=== PATIENT | female | born 1945 | race Caucasian/White ===

== ENCOUNTER 2018-02-14 16:45 | Emergency (ER) | END 2018-02-14 18:06 | disposition home or self-care (01) ==

== ENCOUNTER → 2018-04-25 | Outpatient (CLI) | END | disposition home or self-care (01) ==

== ENCOUNTER → 2018-05-22 | Outpatient (CLI) | END | disposition home or self-care (01) ==

== ENCOUNTER → 2018-06-26 | Outpatient (CLI) | END | disposition home or self-care (01) ==

== ENCOUNTER → 2018-11-28 | Outpatient (CLI) | payer OTHER ==
[~2018-11-28] MED LIST: CYCL10TA7 PO; HYDR-4011 PO; MED4DP PO; NAPR-985 PO
--- NOTE | 2018-11-28 17:46 | RADRPT ---
PROCEDURE: XR Pelvis and Hips. CLINICAL INDICATION: Pelvic pain. Bilateral hip pain. TECHNIQUE: Five views. Frontal pelvis. Frontal and lateral right hip. Frontal and lateral left h ip. COMPARISON: No prior studies are available for comparison. FINDINGS: There is no fracture or dislocation. The soft tissues are normal. There are severe degenerative changes of both hips with joint space narrowing, osteophytes, subchondr al cysts, subchondral sclerosis, and severe deformity. Right is slightly worse than left. There are d egenerative changes of the lower lumbar spine. There is no lytic or blastic lesion. There is no radiopaque foreign body. IMPRESSION: 1. Severe degenerative changes of both hips with right slightly worse than left. 2. Degenerative changes of the lower lumbar spine. 3. Otherwise unremarkable x-ray pelvis and bilateral hips. RPTAT: QQ .Mckinley Loving MD, MD Date Time Electronically viewed and signed by .Mckinley Loving MD, on 11/28/2018 17:45 .R/
--- NOTE | 2018-11-28 22:05 | HKNOTE ---
DATE OF SERVICE: HISTORY OF PRESENT ILLNESS: Ms. Pérez returns today for complaint of bilateral hip pain. She h as attempted weight loss. Her blood sugars have been better controlled. She states that the pain is severe. It is interfering with her activities of daily living. There are no alleviating factors. GAIT: Antalgic gait, reciprocal gait pattern. RIGHT HIP EXAMINATION: 90 degrees of hip flexion, 20 degrees of extension, 0 degrees, internal rotat ion, 30 degrees external rotation. Positive Madonna's test. LEFT HIP EXAMINATION: The same. IMAGING: AP pelvis x-rays. X-ray taken today demonstrate a dysplastic hip with degenerative changes bilaterally. There is loss of joint space with peripheral osteophytes. No fractures or dislocation s. 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 PLAN: Her last hemoglobin A1c level was 7.3. She has failed previous nonoperative management. We w ill request authorization for right total hip arthroplasty. Once approval is obtained, she will be s cheduled for right total hip replacement. Dictated By: DEANA VERGARA/THOMAS Conf#: [id number] DID#: [id number]
== END | disposition home or self-care (01) ==
LOC: HKI 15:10
PROVIDERS: ATTEND Orthopaedic Surgery Adult Reconstructive Orthopaedic Surgery
DX: M25.552 Pain in left hip (principal); M25.551 Pain in right hip; M16.0 Bilateral primary osteoarthritis of hip
CPT/HCPCS: 73523; Z7500; G0463

== ENCOUNTER 2019-02-14 05:38 | Inpatient (IN) | payer OTHER ==
[2019-02-14] VITALS (26 sets, daily range): BP systolic 116–170; BP diastolic 51–79; PULSE 52–74; RESP 9–20
[~2019-02-14] VITALS: Ht 152.4 cm; Wt 68.0 kg
[2019-02-14] MEDS ORDERED: TRANEXAMIC ACID 1GM/100ML(PMX) 100 ML PRE-OP X1 IVPB ONE (07:00)
[2019-02-14] MEDS ORDERED: oxyCODONE (CR) 10 MG TAB [oxyCONTIN] PO ONE (07:00)
[2019-02-14] MEDS ORDERED: ACETAMINOPHEN 500 MG TAB PO ONE (07:00)
[2019-02-14] MEDS ORDERED: TRANEXAMIC ACID 1 GM/100 ML (PMX) ONE (07:00)
[2019-02-14] MEDS ORDERED: LANSOPRAZOLE 30 MG CAP PO ONE (07:00)
[2019-02-14] MEDS ORDERED: EPHEDrine 25 MG/5 ML SYG ONE (07:00)
[2019-02-14] MEDS ORDERED: DEXAMETHASONE 4 MG/ML 1 ML INJ IV ONE (07:00)
[2019-02-14] MEDS ORDERED: CEFAZOLIN 1 GM/50 ML (PMX) 50 ML IVPB ONE (07:00)
[2019-02-14] MEDS ORDERED: TRANEXAMIC ACID 1GM/100ML(PMX) 100 ML INTRA-OP X1 IVPB ONE (07:00)
[2019-02-14] MEDS ORDERED: ONDANSETRON 4 MG INJ IV ONE (07:00)
[2019-02-14] MEDS ORDERED: PHENYLephrine (100 MCG/ML) 10ML SYG ONE (07:00)
[2019-02-14] MEDS ORDERED: POLYMYXIN B 500000 UNIT INJ ONE (07:02)
[2019-02-14] MEDS ORDERED: TRANEXAMIC ACID 1GM/100ML(PMX) 100 ML ONE (07:03)
[2019-02-14] MEDS ORDERED: BACITRACIN 50000 UNITS INJ ONE (07:04)
[2019-02-14] MEDS ORDERED: AMLO-147 PO (07:06)
[2019-02-14] MEDS ORDERED: LOSA1TAB28 PO (07:06)
[2019-02-14] MEDS ORDERED: CANA300T PO (07:06)
[2019-02-14] MEDS ORDERED: TRAM50TA PO (07:07)
[2019-02-14] MEDS ORDERED: GLIP5TAB13 PO (07:08)
[2019-02-14] MEDS ORDERED: FENO145T37 PO (07:08)
[2019-02-14] MEDS ORDERED: HYDR-3672 PO (07:08)
[2019-02-14] MEDS ORDERED: METF100010 PO (07:09)
[2019-02-14] MEDS ORDERED: ATOR40TA68 PO (07:09)
--- NOTE | 2019-02-14 07:09 | PREAC ---
Date/Time of Note Date/Time of Note DATE: 02/14/19 TIME: 07:05 Anesthesia Eval and Record Evaluation Time Pre-Procedure Interview DATE: 02/14/19 TIME: 07:05 Age 73 Sex female NPO: 8 hrs Preoperative diagnosis Right Hip OA Planned procedure Right Anterior Hip Replacement Past Medical History Past Medical History: Includes Cardio: HTN, Dyslipidemia Endo: Diabetes Musculoskeletal: Osteoarthritis Surgery & Anesthesia Issues No known issue Meds Anticoagulation: No Beta Mandy within 24 hr: No Reason Beta Mandy not given: Pt. not on B-Mandy Active Scripts Methylprednisolone* (Medrol* DOSE PACK) 4 Mg/Dose-Pack Tab.ds.pk, 4 MG PO . DIRECTED, #1 PACKET Prov:DEBBIE HERNANDEZ PA-C 02/14/18 Naproxen* (Naprosyn*) 500 Mg Tablet, 500 MG PO BID PRN for PAIN AND/OR INFLAMMATION, #30 TAB Prov:DEBBIE HERNANDEZ PA-C 02/14/18 Cyclobenzaprine Hcl* (Cyclobenzaprine Hcl*) 10 Mg Tablet, 10 MG PO TID, #15 TAB Prov:DEBBIE HERNANDEZ PA-C 02/14/18 Hydrocodone/Acetaminophen ([place] 5-325 Tablet) 1 Each Tablet, 1 TAB PO Q6H PRN for PAIN, #7 TAB Prov:DEBBIE HERNANDEZ PA-C 02/14/18 Current Medications Ropivacaine/ Morphine Sulfate/ Clonidine/ Epinephrine/ Ketorolac Tromethamine/ Vancomycin HCl/ Sodium Chloride INTRA-OP INJ ; Start 02/14/19 at 07:30 Cefazolin Sodium 50 ml @ 100 mls/hr PRE-OP ONCE IVPB ; Start 02/14/19 at 07:00; Stop 02/14/19 at 07:29 Tranexamic Acid 100 ml @ 220 mls/hr PRE-OP ONCE IVPB ; Start 02/14/19 at 07:00; Stop 02/14/19 at 07:27 Tranexamic Acid 100 ml @ 200 mls/hr INTRA-OP ONCE IVPB ; Start 02/14/19 at 07: 00; Stop 02/14/19 at 07:29 Meds reviewed: Yes Allergies Coded Allergies: No Known Allergy (Unverified , 02/14/18) Allergies Reviewed: Yes Labs/Studies Labs Reviewed: Reviewed by anesthesiologist test: N/A Studies: ECG (NSR, RBBB), CXR (No active Disease) Pre-procedure Exam Last vitals Vital Signs Date Temp Pulse Resp B/P (MAP) Pulse Ox O2 O2 Flow FiO2 Time Delivery Rate 02/14/19 97.4 74 16 157/70 100 Room Air 06:46 (99) Airway: Adequate mouth opening, Adequate thyromental dist Mallampati: Mallampati II Teeth: Normal Lung: Normal Heart: Normal ASA Physical Status ASA physical status: 3 Emergency: None Planned Anesthetic General/MAC: ETT Neuraxial: Spinal Nerve block: Other (Right Fascia Iliaca) Planned Pain Management Sub-arachniod narcotics, Single shot nerve block, Parenteral pain med Pre-operative Attestations Prior to commencing anesthesia and surgery, the patient was re-evaluated, there was verification of: *The patient's identity *The results of appropriate recent lab work and preoperative vital signs *The above evaluation not changing prior to induction *Anesthetic plan, risk benefits, alternative and complications discussed with patient/family; questions answered; patient/family understands, accepts and wishes to proceed. ALAN WAER MD Feb 14, 2019 07:09
[2019-02-14] MEDS ORDERED: CHOL500051 PO (07:10)
[2019-02-14] MEDS ORDERED: INSU100I33 SC (07:10)
[2019-02-14] MEDS ORDERED: OMEP20CA16 PO (07:10)
--- NOTE | 2019-02-14 07:24 | HPN ---
Date/Time of Note Date/Time of Note DATE: 02/14/19 TIME: 07:24 Interval H&P Admission Note Pt. seen H&P reviewed: No system changes DEANA ROGERS MD Feb 14, 2019 07:24
[2019-02-14] MEDS ORDERED: HIP PAIN COCKTAIL VANCO INJ SCH ×14 (07:30→15:30)
[2019-02-14] MEDS ORDERED: ETOMIDATE 20 MG INJ ONE (07:38)
[2019-02-14] MEDS ORDERED: ROCURONIUM 50 MG INJ ONE (07:38)
[2019-02-14] MEDS ORDERED: CEFAZOLIN 1 GM INJ ONE (07:38)
[2019-02-14] MEDS ORDERED: morphine SULFATE/PF (10 MG/10 ML) INJ ONE (07:39)
[2019-02-14] MEDS ORDERED: MIDAZOLAM 1 MG/ML 2 ML INJ ONE (07:39)
[2019-02-14] MEDS ORDERED: ROPIVACAINE 0.5 % 30 ML VIAL ONE (07:46)
[2019-02-14] MEDS ORDERED: POLYMYXIN B 500000 UNIT INJ IRR ONE (08:27)
[2019-02-14] MEDS ORDERED: ONDANSETRON 4 MG INJ ONE (08:35)
[2019-02-14] MEDS ORDERED: KETOROLAC 30 MG INJ ONE (08:35)
[2019-02-14] MEDS ORDERED: METOCLOPRAMIDE 10 MG INJ ONE (08:35)
[2019-02-14] MEDS ORDERED: DEXAMETHASONE 4 MG/ML 5 ML INJ ONE (08:35)
[2019-02-14] MEDS ORDERED: HETASTARCH 6% NACL 500 ML ONE (08:49)
[2019-02-14] MEDS ORDERED: SUGAMMADEX SODIUM 200 MG/2 ML VIAL IV ONE ×2 (09:38→09:41)
--- NOTE | 2019-02-14 10:00 | PAC ---
Date/Time of Note Date/Time of Note DATE: 02/14/19 TIME: 09:59 Post-Anesthesia Notes Post-Anesthesia Note Last documented vital signs Vital Signs Date Temp Pulse Resp B/P (MAP) Pulse Ox O2 O2 Flow FiO2 Time Delivery Rate 02/14/19 98.2 74 16 157/70 100 Room Air 09:56 (99) Activity: WNL Respiratory function: WNL Cardiovascular function: WNL Mental status: Baseline Pain reasonably controlled: Yes Hydration appropriate: Yes Nausea/Vomiting absent: Yes ALAN WARE MD Feb 14, 2019 10:00
--- NOTE | 2019-02-14 10:04 | SIPON ---
Date/Time of Note Date/Time of Note DATE: 02/14/19 TIME: 10:03 Operative Report Preoperative Diagnosis Right Hip Osteoarthritis Postoperative Diagnosis Same Operation/Procedure Performed Right Total Hip Arthroplasty Surgeon Armen Lewis MD information services assistant Medardo Sesay Anesthesia: spinal Estimated blood loss: other Transfusion Required none Specimen Bone Grafts/Implants none Complications none ARMEN LEWIS MD Feb 14, 2019 10:04
[2019-02-14] MEDS ORDERED: HYDROmorphONE 0.5 MG/0.5 ML SYG IV PRN ×2 (10:30)
[2019-02-14] MEDS ORDERED: oxyCODONE 5 MG TAB PO PRN (10:30)
[2019-02-14] MEDS ORDERED: morphine 2 MG INJ IV PRN ×2 (10:30)
[2019-02-14] MEDS ORDERED: MEPERIDINE 25 MG INJ IV PRN (10:30)
[2019-02-14] MEDS ORDERED: FENTAnyl 50 MCG/ML VIAL IV PRN ×2 (10:30)
[2019-02-14] MEDS ORDERED: OXYCODONE/ACETAMINOPHEN (5/325) TAB PO PRN ×2 (10:30)
[2019-02-14] MEDS ORDERED: HYDROCODONE/APAP (5/325) TAB PO PRN (10:30)
[2019-02-14] MEDS ORDERED: NALOXONE (0.4 MG/ML) INJ IV PRN ×2 (10:30)
[2019-02-14] MEDS ORDERED: HYDROmorphONE 1 MG/5 ML IV SYRINGE IV PRN ×2 (10:30)
[2019-02-14] MEDS ORDERED: ACETAMINOPHEN 500 MG TAB PO PRN (10:30)
[2019-02-14] MEDS ORDERED: DOCUSATE SODIUM 100 MG CAP PO ONE (10:30)
[2019-02-14] MEDS ORDERED: METOCLOPRAMIDE 10 MG INJ IV PRN ×2 (10:30→22:00)
[2019-02-14] MEDS ORDERED: ONDANSETRON 4 MG INJ IV PRN ×3 (10:30→22:30)
[2019-02-14] MEDS ORDERED: NACL 0.9% 3 ML SYG IV SCH (10:30)
[2019-02-14] MEDS ORDERED: DIPHENHYDRAMINE 50 MG INJ IV PRN ×2 (10:30)
[2019-02-14] MEDS ORDERED: NALBUPHINE HCL (10 MG/1 ML) INJ IV PRN (10:30)
[2019-02-14] MEDS: CEFAZOLIN 2 GM/50 ML (PMX) 50 ML IVPB SCH ×2 (11:01→18:29)
--- NOTE | 2019-02-14 11:14 | CONS ---
Assessment/Plan Assessment/Plan Hospital Course (Demo Recall) Patient is [place] female with a past medical history significant for hypertension, diabetes mellitus, dyslipidemia, GERD, osteoarthritis who presents to [facility] for elective right hip replacement. Patient is doing well with no acute complaints in the postanesthesia care unit. Patient denies chest pain, shortness of breath, headache, nausea, vomiting, bowel or bladder dysfunction Objective Physical exam General: Patient is laying in bed and answers questions appropriately Mentation: Patient is alert and oriented 4, Head: Normocephalic atraumatic Eyes: EOMI, pupils reactive to light Neck: Supple, nontender, midline Respiratory: Clear to auscultation bilaterally Cardiovascular: regular rate, no obvious murmurs Gastrointestinal: non-tender to palpation, bowel sounds heard. Neurological: Moves all extremities spontaneously Skin: Surgical site bandaged, CDI Assessment and plan Total right hip arthroplasty -Orthopedic surgery to manage -Pain control -Monitor Hypertension -Resume home meds when able, will slowly titrate medications This lipidemia -Continue atorvastatin from home Diabetes mellitus -Patient takes glargine 20 units twice a day, will use Lantus while in the hospital, will hold all other p.o. medications and will use insulin while in house GERD -PPI Disposition -Monitor closely, anticipate discharge tomorrow. Thank you for letting us consult on this case. Consultation Date/Type/Reason Admit Date/Time Feb 14, 2019 at 05:38 Date/Time of Note DATE: 02/14/19 TIME: 11:13 Past Medical History Home Meds Reported Medications Cholecalciferol (Vitamin D3) (Vitamin D3) 50,000 Unit Capsule, 45255 UNIT PO EVERY TUESDAY, CAP 02/14/19 Omeprazole* (Omeprazole*) 20 Mg Capsule.dr, 20 MG PO DAILY, #30 CAP 02/14/19 Insulin Glargine,Hum.rec.anlog (Basaglar Kwikpen U-100) 100 Unit/1 Ml Insuln.pen, 50 UNIT SC DAILY, EA 02/14/19 Atorvastatin* (Atorvastatin*) 40 Mg Tablet, 40 MG PO QHS, #30 TAB 02/14/19 Metformin Hcl* (Metformin Hcl*) 1,000 Mg Tablet, 1000 MG PO WITH BREAKFAST DINNE, #60 TAB 02/14/19 Glipizide* (Glipizide*) 5 Mg Tablet, 5 MG PO BID, TAB 02/14/19 Fenofibrate Nanocrystallized* (Fenofibrate*) 145 Mg Tablet, 145 MG PO DAILY, TAB 02/14/19 Hydralazine Hcl* (Hydralazine Hcl*) 50 Mg Tab, 50 MG PO Q6H PRN for ELEVATED BLOOD PRESSURE, #60 TAB 02/14/19 Tramadol Hcl* (Ultram*) 50 Mg Tablet, 50 MG PO DAILY PRN for PAIN, TAB 02/14/19 Losartan-Hydrochlorothiazide (Losartan-HCTZ) 100-12.5 Mg Tab, 1 TAB PO DAILY, TAB 02/14/19 Canagliflozin (Invokana) 300 Mg Tablet, 300 MG PO DAILY, TAB 02/14/19 Amlodipine Besylate* (Amlodipine Besylate*) 10 Mg Tablet, 10 MG PO DAILY, #30 TAB 02/14/19 Discontinued Scripts Methylprednisolone* (Medrol* DOSE PACK) 4 Mg/Dose-Pack Tab.ds.pk, 4 MG PO . DIRECTED, #1 PACKET Prov:DEBBIE HERNANDEZ PA-C 02/14/18 Naproxen* (Naprosyn*) 500 Mg Tablet, 500 MG PO BID PRN for PAIN AND/OR INFLAMMATION, #30 TAB Prov:DEBBIE HERNANDEZ PA-C 02/14/18 Cyclobenzaprine Hcl* (Cyclobenzaprine Hcl*) 10 Mg Tablet, 10 MG PO TID, #15 TAB Prov:DEBBIE HERNANDEZ PA-C 02/14/18 Hydrocodone/Acetaminophen ([place] 5-325 Tablet) 1 Each Tablet, 1 TAB PO Q6H PRN for PAIN, #7 TAB Prov:DEBBIE HERNANDEZ PA-C 02/14/18 Medications Current Medications Ropivacaine/ Morphine Sulfate/ Clonidine/ Epinephrine/ Ketorolac Tromethamine/ Vancomycin HCl/ Sodium Chloride INTRA-OP INJ ; Start 02/14/19 at 07:30 Oxycodone HCl (Roxicodone) 5 mg Q4H PRN PO .PAIN; Start 02/14/19 at 10:30; Status UNV Ondansetron HCl (Zofran Inj) 4 mg Q6H IV ; Start 02/14/19 at 10:30; Stop 02/15/19 at 04:31; Status UNV Cefazolin Sodium/ Dextrose 50 ml @ 100 mls/hr Q8H IVPB Last administered on 02/14/19at 11:01; Admin Dose 100 MLS/HR; Start 02/14/19 at 10:30; Stop 02/15/19 at 02:59 Celecoxib (Celebrex) 100 mg BID PO ; Start 02/15/19 at 09:00; Status UNV Gabapentin (Neurontin) 100 mg TID PO ; Start 02/14/19 at 13:00; Status UNV Pantoprazole (Protonix Tab) 40 mg DAILY@06 PO ; Start 02/15/19 at 06:00; Status UNV Ketorolac Tromethamine (Toradol) 15 mg Q6H PRN IV .PAIN; Start 02/14/19 at 1 0:30; Status UNV Naloxone HCl (Narcan) 0.2 mg Q2M PRN IV .RESP RATE; Start 02/14/19 at 10:30; Status UNV IV Flush (NS 3 ml) 3 ml per protocol IV ; Start 02/14/19 at 10:30; Status UNV Aspirin (Halfprin) 81 mg BID PO ; Start 02/15/19 at 09:00; Status UNV Hydromorphone HCl (Dilaudid) 0.2 mg PACU PRN IV MILD PAIN 1-3; Start 02/14/19 at 10:30; Stop 02/14/19 at 15:00 Hydromorphone HCl (Dilaudid) 0.4 mg PACU PRN IV MOD PAIN 4-6; Start 02/14/19 at 10:30; Stop 02/14/19 at 15:00 Fentanyl (Sublimaze) 25 mcg PACU ORDER PRN IV MILD PAIN 1-3; Start 02/14/19 at 10:30; Stop 02/14/19 at 15:00 Fentanyl (Sublimaze) 50 mcg PACU ORDER PRN IV MOD PAIN 4-6; Start 02/14/19 at 10:30; Stop 02/14/19 at 15:00 Oxycodone/ Acetaminophen (Percocet (5/ 325)) 1 tab PACU ORDER PRN PO .PAIN 1-5; Start 02/14/19 at 10:30; Stop 02/14/19 at 15:00 Oxycodone/ Acetaminophen (Percocet (5/ 325)) 2 tab PACU ORDER PRN PO .PAIN 6-10; Start 02/14/19 at 10:30; Stop 02/14/19 at 15:00 Ondansetron HCl (Zofran Inj) 4 mg PACU ORDER PRN IV NAUSEA/VOMITING; Start 02/14/19 at 10:30; Stop 02/14/19 at 15:00 Metoclopramide HCl (Reglan) 10 mg PACU ORDER PRN IV NAUSEA/VOMITING; Start 02/14/19 at 10:30; Stop 02/14/19 at 15:00 Meperidine HCl (Demerol) 25 mg PACU ORDER PRN IV .RIGORS; Start 02/14/19 at 10:30; Stop 02/14/19 at 15:00 Diphenhydramine HCl (Benadryl) 25 mg PACU ORDER PRN IV .PRURITUS; Start 02/14/19 at 10:30; Stop 02/14/19 at 15:00 Hydromorphone HCl (Dilaudid) 0.2 mg Q2H PRN IV .PAIN 1-5; Start 02/14/19 at 10:30; Status UNV Hydromorphone HCl (Dilaudid) 0.4 mg Q2H PRN IV .PAIN 6-10; Start 02/14/19 at 10:30; Status UNV Morphine Sulfate (morphine) 2 mg Q2H PRN IV .PAIN 1-5; Start 02/14/19 at 10:30; Status UNV Morphine Sulfate (morphine) 4 mg Q2H PRN IV .PAIN 6-10; Start 02/14/19 at 10:30; Status UNV Acetaminophen (Tylenol Tab) 500 mg Q4H PRN PO .PAIN 1-3; Start 02/14/19 at 10:30 Acetaminophen/ Hydrocodone Bitart (Blunt (5/325)) 1 tab Q4H PRN PO .PAIN 4-6; Start 02/14/19 at 10:30; Status UNV Diphenhydramine HCl (Benadryl) 25 mg Q4H PRN IV .PRURITUS; Start 02/14/19 at 10:30; Status UNV Nalbuphine HCl (Nubain) 10 mg Q4H PRN IV .PRURITUS; Start 02/14/19 at 10:30; Status UNV Ondansetron HCl (Zofran Inj) 4 mg Q6H PRN IV .NAUSEA/VOMITING; Start 02/14/19 at 10:30; Status UNV Naloxone HCl (Narcan) 0.2 mg Q2M PRN IV .RESP RATE; Start 02/14/19 at 10:30; Status UNV Miscellaneous Information (* Miscellaneous Pharmacy Order) DURAMORPH: 0.1 MG SPI... GIVEN NEURAXIAL XX ; Start 02/14/19 at 10:30; Status UNV Amlodipine Besylate (Norvasc) 10 mg DAILY PO ; Start 02/15/19 at 09:00; Status UNV Atorvastatin Calcium (Lipitor) 40 mg QHS PO ; Start 02/14/19 at 21:00; Status UNV Fenofibrate (Tricor) 145 mg DAILY PO ; Start 02/15/19 at 09:00; Status UNV Losartan Potassium (Cozaar) 100 mg DAILY PO ; Start 02/15/19 at 09:00; Status UNV Hydrochlorothiazide (Hydrochlorothiazide) 12.5 mg DAILY PO ; Start 02/15/19 at 09:00; Status UNV Miscellaneous Information (* Miscellaneous Pharmacy Order) Discontinue current oral sulfonylur... ONCE ONCE XX ; Start 02/14/19 at 11:00; Stop 02/14/19 at 11:01; Status UNV Diagnostic Test (Pha) (Accu-Chek) 1 ea 02 XX ; Start 02/15/19 at 02:00 Insulin Glargine (Lantus) 50 units DAILY@2000 SC ; Start 02/14/19 at 20:00; Status UNV Insulin Aspart (Novolog Insulin Pen) 5 unit WITH MEALS SC ; Start 02/14/19 at 12:00; Status UNV Miscellaneous Information (* Miscellaneous Pharmacy Order) HYPOGLYCEMIA PROTOCOL w... ONCE ONCE XX ; Start 02/14/19 at 11:00; Stop 02/14/19 at 11:01; Status UNV Insulin Aspart (Novolog Insulin Pen) NOVOLOG *MILD* ALGORITHM WITH MEALS BEDTIME SC ; Start 02/14/19 at 12:00; Status UNV Miscellaneous Information (* Miscellaneous Pharmacy Order) Discontinue all previ... ONCE ONCE XX ; Start 02/14/19 at 11:00; Stop 02/14/19 at 11:01; Status UNV Allergies: Coded Allergies: No Known Allergy (Unverified , 02/14/18) Social History Smoking Status: Never smoker Exam/Review of Systems Exam Vitals Vital Signs Date Temp Pulse Resp B/P (MAP) Pulse Ox O2 O2 Flow FiO2 Time Delivery Rate 02/14/19 62 18 133/59 100 Nasal 2.0 10:10 (83) Cannula 02/14/19 98.2 10:03 Results Results 24hrs Laboratory Tests Test 02/14/19 06:10 Bedside Glucose 76 Medications Medication Current Medications Ropivacaine/ Morphine Sulfate/ Clonidine/ Epinephrine/ Ketorolac Tromethamine/ Vancomycin HCl/ Sodium Chloride INTRA-OP INJ ; Start 02/14/19 at 07:30 Oxycodone HCl (Roxicodone) 5 mg Q4H PRN PO .PAIN; Start 02/14/19 at 10:30; Sta tus UNV Ondansetron HCl (Zofran Inj) 4 mg Q6H IV ; Start 02/14/19 at 10:30; Stop 02/15/19 at 04:31; Status UNV Cefazolin Sodium/ Dextrose 50 ml @ 100 mls/hr Q8H IVPB Last administered on 02/14/19at 11:01; Admin Dose 100 MLS/HR; Start 02/14/19 at 10:30; Stop 02/15/19 at 02:59 Celecoxib (Celebrex) 100 mg BID PO ; Start 02/15/19 at 09:00; Status UNV Gabapentin (Neurontin) 100 mg TID PO ; Start 02/14/19 at 13:00; Status UNV Pantoprazole (Protonix Tab) 40 mg DAILY@06 PO ; Start 02/15/19 at 06:00; Status UNV Ketorolac Tromethamine (Toradol) 15 mg Q6H PRN IV .PAIN; Start 02/14/19 at 10:30; Status UNV Naloxone HCl (Narcan) 0.2 mg Q2M PRN IV .RESP RATE; Start 02/14/19 at 10:30; Status UNV IV Flush (NS 3 ml) 3 ml per protocol IV ; Start 02/14/19 at 10:30; Status UNV Aspirin (Halfprin) 81 mg BID PO ; Start 02/15/19 at 09:00; Status UNV Hydromorphone HCl (Dilaudid) 0.2 mg PACU PRN IV MILD PAIN 1-3; Start 02/14/19 at 10:30; Stop 02/14/19 at 15:00 Hydromorphone HCl (Dilaudid) 0.4 mg PACU PRN IV MOD PAIN 4-6; Start 02/14/19 at 10:30; Stop 02/14/19 at 15:00 Fentanyl (Sublimaze) 25 mcg PACU ORDER PRN IV MILD PAIN 1-3; Start 02/14/19 at 10:30; Stop 02/14/19 at 15:00 Fentanyl (Sublimaze) 50 mcg PACU ORDER PRN IV MOD PAIN 4-6; Start 02/14/19 at 10:30; Stop 02/14/19 at 15:00 Oxycodone/ Acetaminophen (Percocet (5/ 325)) 1 tab PACU ORDER PRN PO .PAIN 1-5; Start 02/14/19 at 10:30; Stop 02/14/19 at 15:00 Oxycodone/ Acetaminophen (Percocet (5/ 325)) 2 tab PACU ORDER PRN PO .PAIN 6-10; Start 02/14/19 at 10:30; Stop 02/14/19 at 15:00 Ondansetron HCl (Zofran Inj) 4 mg PACU ORDER PRN IV NAUSEA/VOMITING; Start 02/14/19 at 10:30; Stop 02/14/19 at 15:00 Metoclopramide HCl (Reglan) 10 mg PACU ORDER PRN IV NAUSEA/VOMITING; Start 02/14/19 at 10:30; Stop 02/14/19 at 15:00 Meperidine HCl (Demerol) 25 mg PACU ORDER PRN IV .RIGORS; Start 02/14/19 at 10:30; Stop 02/14/19 at 15:00 Diphenhydramine HCl (Benadryl) 25 mg PACU ORDER PRN IV .PRURITUS; Start 02/14/19 at 10:30; Stop 02/14/19 at 15:00 Hydromorphone HCl (Dilaudid) 0.2 mg Q2H PRN IV .PAIN 1-5; Start 02/14/19 at 10:30; Status UNV Hydromorphone HCl (Dilaudid) 0.4 mg Q2H PRN IV .PAIN 6-10; Start 02/14/19 at 10:30; Status UNV Morphine Sulfate (morphine) 2 mg Q2H PRN IV .PAIN 1-5; Start 02/14/19 at 10:30; Status UNV Morphine Sulfate (morphine) 4 mg Q2H PRN IV .PAIN 6-10; Start 02/14/19 at 10:30; Status UNV Acetaminophen (Tylenol Tab) 500 mg Q4H PRN PO .PAIN 1-3; Start 02/14/19 at 10:30 Acetaminophen/ Hydrocodone Bitart (Blunt (5/325)) 1 tab Q4H PRN PO .PAIN 4-6; Start 02/14/19 at 10:30; Status UNV Diphenhydramine HCl (Benadryl) 25 mg Q4H PRN IV .PRURITUS; Start 02/14/19 at 10:30; Status UNV Nalbuphine HCl (Nubain) 10 mg Q4H PRN IV .PRURITUS; Start 02/14/19 at 10:30; Status UNV Ondansetron HCl (Zofran Inj) 4 mg Q6H PRN IV .NAUSEA/VOMITING; Start 02/14/19 at 10:30; Status UNV Naloxone HCl (Narcan) 0.2 mg Q2M PRN IV .RESP RATE; Start 02/14/19 at 10:30; Status UNV Miscellaneous Information (* Miscellaneous Pharmacy Order) DURAMORPH: 0.1 MG SPI... GIVEN NEURAXIAL XX ; Start 02/14/19 at 10:30; Status UNV Amlodipine Besylate (Norvasc) 10 mg DAILY PO ; Start 02/15/19 at 09:00; Status UNV Atorvastatin Calcium (Lipitor) 40 mg QHS PO ; Start 02/14/19 at 21:00; Status UNV Fenofibrate (Tricor) 145 mg DAILY PO ; Start 02/15/19 at 09:00; Status UNV Losartan Potassium (Cozaar) 100 mg DAILY PO ; Start 02/15/19 at 09:00; Status UNV Hydrochlorothiazide (Hydrochlorothiazide) 12.5 mg DAILY PO ; Start 02/15/19 at 09:00; Status UNV Miscellaneous Information (* Miscellaneous Pharmacy Order) Discontinue current oral sulfonylur... ONCE ONCE XX ; Start 02/14/19 at 11:00; Stop 02/14/19 at 11:01; Status UNV Diagnostic Test (Pha) (Accu-Chek) 1 XX ; Start 02/15/19 at 02:00 Insulin Glargine (Lantus) 50 units DAILY@2000 SC ; Start 02/14/19 at 20:00; Status UNV Insulin Aspart (Novolog Insulin Pen) 5 unit WITH MEALS SC ; Start 02/14/19 at 12:00; Status UNV Miscellaneous Information (* Miscellaneous Pharmacy Order) HYPOGLYCEMIA PROTOCOL w... ONCE ONCE XX ; Start 02/14/19 at 11:00; Stop 02/14/19 at 11:01; Status UNV Insulin Aspart (Novolog Insulin Pen) NOVOLOG *MILD* ALGORITHM WITH MEALS BEDTIME SC ; Start 02/14/19 at 12:00; Status UNV Miscellaneous Information (* Miscellaneous Pharmacy Order) Discontinue all previ... ONCE ONCE XX ; Start 02/14/19 at 11:00; Stop 02/14/19 at 11:01; Status UNV ANGELINA GUTIERREZ Feb 14, 2019 11:13
[2019-02-14] MEDS ORDERED: hydrALAzine 20 MG INJ IV PRN (11:30)
[2019-02-14] MEDS: INSULIN ASPART [NOVOLOG] 3 ML PEN SC SCH ×6 (12:00→21:00)
[2019-02-14] MEDS ORDERED: GLUCOSE GEL 15 GRAM TUBE PO PRN ×2 (13:00)
[2019-02-14] MEDS ORDERED: DEXTROSE 50% 50 ML SYRINGE IV PRN ×2 (13:00)
[2019-02-14] MEDS ORDERED: GLUCAGON 1 MG INJ IM PRN (13:00)
[2019-02-14] MEDS ORDERED: GLUCOSE GEL 15 GRAM TUBE BUCCAL PRN (13:00)
--- NOTE | 2019-02-14 13:31 | OPR ---
Date/Time of Note Date/Time of Note DATE: 02/14/19 TIME: 13:24 Operative Report Free Text/Dictation DATE OF OPERATION: February 14, 2019 PREOPERATIVE DIAGNOSIS: Right hip dysplastic osteoarthritis. POSTOPERATIVE DIAGNOSIS: Same PROCEDURES PERFORMED: 1. Right total hip arthroplasty. CPT code 25410. 2. Computer assisted navigational procedure, CPT code 01843. 3. Interpretation of AP Pelvis x-ray. 4. Interpretation of right hip, 2 views. SURGEON: Deana Lewis. MARINE PROPULSION TECHNICIAN: 1.Medardo Sesay. ANESTHESIOLOGIST: Dr. Berry ANESTHESIA: Spinal ESTIMATED BLOOD LOSS: 300 mL. COMPLICATIONS: None. SPECIMENS: Resected bone. DISPOSITION: PACU in stable condition. IMPLANT USED: A DePuy Actis size 4 standard stem, 32/+1 delta ceramic femoral head, 48 mm Hankamer Cup, 32 mm liner, 20 mm cancellous screw. COMPLICATIONS: None. DISPOSITION: To PACU in stable condition. INDICATION FOR PROCEDURE: This is an 73 year-old female with endstage osteoarthritis of the right hip who had failed nonoperative management. Risks, benefits, alternatives of surgical intervention were discussed with the patient and informed consent was obtained. The risks of surgery include but are not limited to infection, deep venous thrombosis, pulmonary embolism, leg length discrepancy, fracture, damage to neurovascular structures requiring repair, loosening of the prosthesis, wear of prosthesis, need for revision surgery, heart attack, stroke, need for blood transfusion, risks associated with anesthesia and even . DESCRIPTION OF PROCEDURE: The patient was met in the preoperative suite and the correct operative site was confirmed and marked. Patient was then brought into operating room. After induction of general anesthesia, the patient was placed in the supine position on the table. The right lower extremity was prepped and draped in the usual sterile fashion. Before starting, a timeout was taken to identify the correct operative site, the patients name and medical record number and to confirm the preoperative antibiotics consisting of 1 gram of IV Ancef, along with 1 gram of tranexamic acid were administered. At this point, an 8 cm incision was made approximately 2 cm lateral and 1 cm distal to the ASIS. The incision was carried down to the fascia. The fascia was then incised. Then, 2 Allis clamps were placed. The interval was then bluntly developed and the tensor fascia akosua was then retracted laterally. The lateral circumflex vessels were identified and coagulated. The anterior capsule was then visualized and a capsulotomy was performed. At this point, markings were made for the napkin ring osteotomy of the femoral neck. Using the saw the initial osteotomy was then made and completed with the use of an osteotome. A Sylvia was then used to remove the napkin ring and a corkscrew was then placed in the femoral head and the head was then removed. The head was sized to 48 mm. Sequential reaming was begun with a 43 mm reamer, going up to a 47 mm reamer. A trial 48 mm cup was then impacted and the radlink was then used to determine the appropriate ante version and abduction of the cup. The cup was noted to be in approximately 44 degrees of inclination, and 22 degrees of anteversion. The trial was then removed. The appropriate size cup was then placed and again the radlink was used to determine the inclination and anteversion, and was noted be unchanged. At this point, a 20 mm screw was then placed in the posterior superior quadrant. The 32 mm liner was then impacted into place and the final acetabular x-rays were taken which again demonstrated the cup to be in appropriate abduction and anteversion. At this point, the femoral lift was then used and the leg was then placed in external rotation, extension, and adduction. Retractors were placed and the femoral releases were performed using a box osteotome followed by a canal finder. Sequential broaching was begun with a 0 broach going up to a size 4 broach. The trial 4 standard offset stem along with a 32/+1 trial head and neck were placed. The hip was then reduced and taken through range of motion, noted to be stable in extension and external rotation of up to 110 degrees. AP x-rays of the pelvis and right hip, 2 view x-rays were taken. The x-rays demonstrated the prosthesis to be in the correct position. The right lower extremity was noted to be longer by approximately 4 mm. This is due to her hip dysplasia and superior position of her hip prior to surgery. The trial c omponents were then removed. The appropriate sized components were then placed. The hip was again reduced with unchanged stability and no fractures were seen. The hip was again taken through range of motion and noted to be stable to extension and external rotation. The wound was then thoroughly irrigated. The capsule and the fascia were closed using #1 Stratafix. The subcutaneous tissue was closed using 2-0 Vicryl and the skin with 4-0 Monocryl in subcuticular fashion and Steri-Strips were applied. There were no complications. Patient was awakened and taken to postoperative care unit in stable condition. Prior to transfer, the patient was noted to have a palpable dorsalis pedis pulse. POSTOPERATIVE CARE: Patient will be weightbearing as tolerated. Patient will work with physical therapy, and receive multimodal pain management.. Patient will receive two additional doses of IV Ancef along with aspirin 81 mg p.o. b.i.d. for 6 weeks. Patient will have SCDs while in the hospital. Upon discharge, patient will follow up in my office within 2 weeks postoperatively. DEANA LEWIS MD Feb 14, 2019 13:31
[2019-02-14] MEDS: SOD CHLORIDE 0.45% 1,000 ML IV SCH (13:35)
[2019-02-14] MEDS: AMLODIPINE 10 MG TAB PO SCH (13:44)
[2019-02-14] MEDS: ONDANSETRON 4 MG INJ IV SCH ×2 (13:45→18:47)
[2019-02-14] MEDS: GABAPENTIN 100 MG CAP PO SCH ×2 (13:45→20:54)
[2019-02-14] MEDS ORDERED: INSULIN GLARGINE [LANTus] (100 UNITS/ML) SYG SC SCH ×2 (20:00)
[2019-02-14] MEDS: ATORVASTATIN 40 MG TAB PO SCH (20:54)
[2019-02-14] MEDS ORDERED: ONDANSETRON INJ 8 MG in SOD CHLORIDE 0.9% 50 ML IV PRN (22:30)
[2019-02-15] MEDS: ONDANSETRON 4 MG INJ IV SCH ×2 (01:00→07:00)
[2019-02-15] MEDS: ACCU-CHEK XX SCH (02:00)
[2019-02-15] MEDS: CEFAZOLIN 2 GM/50 ML (PMX) 50 ML IVPB SCH (02:51)
[2019-02-15] MEDS ORDERED: PANTOPRAZOLE (EC) 40 MG TAB PO SCH (06:00)
[2019-02-15] MEDS: HYDROCHLOROTHIAZIDE 12.5 MG CAP PO SCH (06:00)
[2019-02-15] MEDS: PANTOPRAZOLE (EC) 40 MG TAB PO SCH (06:20)
[2019-02-15] MEDS: INSULIN ASPART [NOVOLOG] 3 ML PEN SC SCH ×7 (07:50→21:00)
[2019-02-15 07:59] VITALS: BP 109/53; PULSE 61; RESP 18
[2019-02-15] MEDS: INSULIN GLARGINE [LANTus] (100 UNITS/ML) SYG SC SCH ×2 (08:28→20:42)
[2019-02-15] MEDS: AMLODIPINE 10 MG TAB PO SCH (08:30)
[2019-02-15] MEDS: LOSARTAN 50 MG TAB PO SCH (08:30)
[2019-02-15] MEDS: CELECOXIB 100 MG CAP PO SCH ×2 (08:37→20:22)
[2019-02-15] MEDS: FENOFIBRATE 145 MG TAB PO SCH (08:37)
[2019-02-15] MEDS: GABAPENTIN 100 MG CAP PO SCH ×3 (08:39→20:23)
[2019-02-15] MEDS: ASPIRIN (EC) 81 MG TAB PO SCH ×2 (08:39→20:23)
[2019-02-15] MEDS: KETOROLAC 15 MG INJ IV PRN ×2 (08:47→15:53)
[2019-02-15] MEDS ORDERED: AMLODIPINE 10 MG TAB PO SCH (09:00)
[2019-02-15] MEDS: traMADol 50 MG TAB PO PRN ×2 (11:55→20:23)
[2019-02-15] MEDS: SOD CHLORIDE 0.45% 1,000 ML IV SCH (13:30)
[2019-02-15 14:32] VITALS: BP 141/60; PULSE 61; RESP 18
--- NOTE | 2019-02-15 14:42 | PN ---
Date/Time of Note Date/Time of Note DATE: 02/15/19 TIME: 14:39 Objective Vitals Vital Signs Date Temp Pulse Resp B/P (MAP) Pulse Ox O2 O2 Flow FiO2 Time Delivery Rate 02/15/19 98.2 61 18 141/60 96 Room Air 14:32 (87) 02/15/19 3.0 07:59 Intake and Output 02/14/19 02/14/19 02/15/19 1515:00 23:00 07:00 IntakeIntake Total 200 ml 590 ml 780 ml OutputOutput Total 300 ml BalanceBalance -100 ml 590 ml 780 ml Results Result Diagram: 02/15/19 0430 02/15/19 0430 Medications Medications Current Medications Ropivacaine/ Morphine Sulfate/ Clonidine/ Epinephrine/ Ketorolac Tromethamine/ Vancomycin HCl/ Sodium Chloride INTRA-OP INJ ; Start 02/14/19 at 07:30 Celecoxib (Celebrex) 100 mg BID PO Last administered on 02/15/19at 08:37; Admin Dose 100 MG; Start 02/15/19 at 09:00 Gabapentin (Neurontin) 100 mg TID PO Last administered on 02/15/19at 12:34; Admin Dose 100 MG; Start 02/14/19 at 13:00 Pantoprazole (Protonix Tab) 40 mg DAILY@06 PO Last administered on 02/15/19at 06:20; Admin Dose 40 MG; Start 02/15/19 at 06:00 Ketorolac Tromethamine (Toradol) 15 mg Q6H PRN IV .PAIN Last administered on 02/15/19at 08:47; Admin Dose 15 MG; Start 02/14/19 at 10:30 IV Flush (NS 3 ml) 3 ml per protocol IV ; Start 02/14/19 at 10:30 Aspirin (Halfprin) 81 mg BID PO Last administered on 02/15/19at 08:39; Admin Dose 81 MG; Start 02/15/19 at 09:00 Miscellaneous Information (* Miscellaneous Pharmacy Order) DURAMORPH: 0.1 MG SPI... GIVEN NEURAXIAL XX ; Start 02/14/19 at 10:30 Atorvastatin Calcium (Lipitor) 40 mg QHS PO Last administered on 02/14/19at 20:54; Admin Dose 40 MG; Start 02/14/19 at 21:00 Fenofibrate (Tricor) 145 mg DAILY PO Last administered on 02/15/19at 08:37; Admin Dose 145 MG; Start 02/15/19 at 09:00 Losartan Potassium (Cozaar) 100 mg DAILY PO ; Start 02/15/19 at 09:00 Hydrochlorothiazide (Hydrochlorothiazide) 12.5 mg DAILY@0600 PO ; Start 02/15/19 at 06:00 Diagnostic Test (Pha) (Accu-Chek) 1 ea 02 XX ; Start 02/15/19 at 02:00 Insulin Aspart (Novolog Insulin Pen) 5 unit WITH MEALS SC Last administered on 02/15/19at 12:35; Admin Dose 5 UNIT; Start 02/14/19 at 12:00 Insulin Aspart (Novolog Insulin Pen) NOVOLOG *MILD* ALGORITHM WITH MEALS BEDTIME SC Last administered on 02/15/19at 12:36; Admin Dose 1 UNIT; Start 02/14/19 at 12:00 Amlodipine Besylate (Norvasc) 10 mg DAILY PO Last administered on 02/14/19at 13:44; Admin Dose 10 MG; Start 02/14/19 at 13:00 Hydralazine HCl (Apresoline) 10 mg Q4H PRN IV sbp >160; Start 02/14/19 at 11:30 Miscellaneous Information 1 ea NOTE XX ; Start 02/14/19 at 13:00 Glucose (Glutose) 15 gm Q15M PRN PO DECREASED GLUCOSE; Start 02/14/19 at 13:00 Glucose (Glutose) 22.5 gm Q15M PRN PO DECREASED GLUCOSE; Start 02/14/19 at 13:00 Dextrose (D50w Syringe) 25 ml Q15M PRN IV DECREASED GLUCOSE; Start 02/14/19 at 13:00 Dextrose (D50w Syringe) 50 ml Q15M PRN IV DECREASED GLUCOSE; Start 02/14/19 at 13:00 Glucagon (Glucagen) 1 mg Q15M PRN IM DECREASED GLUCOSE; Start 02/14/19 at 13:00 Glucose (Glutose) 15 gm Q15M PRN BUCCAL DECREASED GLUCOSE; Start 02/14/19 at 13:00 Metoclopramide HCl (Reglan) 10 mg Q6H PRN IV NAUSEA; Start 02/14/19 at 22:00 Ondansetron HCl 8 mg/Sodium Chloride 54 ml @ 108 mls/hr Q6H PRN IV NAUSEA AND/OR VOMITING; Start 02/14/19 at 22:30; Stop 02/15/19 at 22:29 Insulin Glargine (Lantus) 20 units BID SC Last administered on 02/15/19at 08:28; Admin Dose 20 UNITS; Start 02/15/19 at 09:00 Tramadol HCl (Ultram) 50 mg Q6H PRN PO MODERATE PAIN LEVEL 4-6 Last administered on 02/15/19at 11:55; Admin Dose 50 MG; Start 02/15/19 at 11:30 Acetaminophen/ Hydrocodone Bitart ([place] (5/325)) 1 tab Q4H PRN PO MODERATE PAIN LEVEL 4-6; Start 02/15/19 at 17:00 VTE Prophylaxis Risk score (from Ns)>0 risk: 7 SCD applied (from Ns): Yes Lines/Catheters IV Catheter Type: Rutledge in Place: No Assessment/Plan Hospital Course Subjective Patient refusing to take pain medication as she had bad experiences with morphine and [place] in the past, is complaining of surgical site pain at this time, otherwise doing well with no other complaints Objective Physical exam General: Patient is laying in bed and answers questions appropriately Mentation: Patient is alert and oriented 4, Head: Normocephalic atraumatic Eyes: EOMI, pupils reactive to light Neck: Supple, nontender, midline Respiratory: Clear to auscultation bilaterally Cardiovascular: regular rate, no obvious murmurs Gastrointestinal: non-tender to palpation, bowel sounds heard. Neurological: Moves all extremities spontaneously Skin: Surgical site bandaged, CDI Assessment and plan Total right hip arthroplasty -Orthopedic surgery to manage -Pain control -Monitor Hypertension -Resume home meds when able, will slowly titrate medications This lipidemia -Continue atorvastatin from home Diabetes mellitus -Patient takes glargine 20 units twice a day, will use Lantus while in the hospital, will hold all other p.o. medications and will use insulin while in house GERD -PPI Disposition -Spoke with family, encouraging patient to use pain medication when appropriate as this will help her with mobility and hopeful home health physical therapy. [facility] will also be consulted for possible transfer. Patient's family at this time does not want to send to a assisted facility so we will try [facility] and then home health physical therapy as front lines however if patient unable to walk up and down stairs will not be safe for home as patient lives in a multistory building also patient has very poor self awareness and safety awareness per physical therapy, case management notified, I feel at this time if patient not accepted to acute rehab will need to go to a assisted facility at least for a short amount of time. ANGELINA GUTIERREZ Feb 15, 2019 14:42
[2019-02-15] MEDS ORDERED: HYDROCODONE/APAP (5/325) TAB PO PRN (17:00)
[2019-02-15 19:58] VITALS: BP 133/59; PULSE 61; RESP 20
[2019-02-15] MEDS: ATORVASTATIN 40 MG TAB PO SCH (20:23)
[2019-02-16] MEDS: ACCU-CHEK XX SCH (02:00)
[2019-02-16 02:52] VITALS: BP 135/65; PULSE 60; RESP 18
[2019-02-16] MEDS: traMADol 50 MG TAB PO PRN ×3 (05:57→18:06)
[2019-02-16] MEDS: PANTOPRAZOLE (EC) 40 MG TAB PO SCH (05:57)
[2019-02-16] MEDS: HYDROCHLOROTHIAZIDE 12.5 MG CAP PO SCH (06:00)
[2019-02-16 07:47] VITALS: BP 119/59; PULSE 64; RESP 18
[2019-02-16] MEDS: INSULIN ASPART [NOVOLOG] 3 ML PEN SC SCH ×7 (07:50→20:33)
[2019-02-16] MEDS: INSULIN GLARGINE [LANTus] (100 UNITS/ML) SYG SC SCH ×2 (08:34→20:34)
[2019-02-16] MEDS: CELECOXIB 100 MG CAP PO SCH ×2 (08:34→20:30)
[2019-02-16] MEDS: LOSARTAN 50 MG TAB PO SCH (08:35)
[2019-02-16] MEDS: AMLODIPINE 10 MG TAB PO SCH (08:36)
[2019-02-16] MEDS: ASPIRIN (EC) 81 MG TAB PO SCH ×2 (08:36→20:30)
[2019-02-16] MEDS: GABAPENTIN 100 MG CAP PO SCH ×3 (08:36→20:30)
[2019-02-16] MEDS: FENOFIBRATE 145 MG TAB PO SCH (08:36)
[2019-02-16] MEDS: KETOROLAC 15 MG INJ IV PRN (08:41)
[2019-02-16 14:55] VITALS: BP 122/62; PULSE 68; RESP 18
[2019-02-16] MEDS ORDERED: POLYETHYLENE GLYCOL 17 GM PACKET PO ONE (15:30)
--- NOTE | 2019-02-16 15:48 | PN ---
Date/Time of Note Date/Time of Note DATE: 02/16/19 TIME: 15:42 Objective Vitals Vital Signs Date Temp Pulse Resp B/P (MAP) Pulse Ox O2 O2 Flow FiO2 Time Delivery Rate 02/16/19 97.8 68 18 122/62 92 Room Air 14:55 (82) 02/15/19 3.0 07:59 Intake and Output 02/15/19 02/15/19 02/16/19 1515:00 23:00 07:00 IntakeIntake Total 560 ml 440 ml 300 ml OutputOutput Total 300 ml BalanceBalance 260 ml 440 ml 300 ml Results Result Diagram: 02/16/19 0430 02/16/19 0430 Medications Medications Current Medications Ropivacaine/ Morphine Sulfate/ Clonidine/ Epinephrine/ Ketorolac Tromethamine/ Vancomycin HCl/ Sodium Chloride INTRA-OP INJ ; Start 02/14/19 at 07:30 Celecoxib (Celebrex) 100 mg BID PO Last administered on 02/16/19at 08:34; Admin Dose 100 MG; Start 02/15/19 at 09:00 Gabapentin (Neurontin) 100 mg TID PO Last administered on 02/16/19at 11:54; Admin Dose 100 MG; Start 02/14/19 at 13:00 Pantoprazole (Protonix Tab) 40 mg DAILY@06 PO Last administered on 02/16/19at 05:57; Admin Dose 40 MG; Start 02/15/19 at 06:00 Ketorolac Tromethamine (Toradol) 15 mg Q6H PRN IV .PAIN Last administered on 02/16/19at 08:41; Admin Dose 15 MG; Start 02/14/19 at 10:30 IV Flush (NS 3 ml) 3 ml per protocol IV ; Start 02/14/19 at 10:30 Aspirin (Halfprin) 81 mg BID PO Last administered on 02/16/19at 08:36; Admin Dose 81 MG; Start 02/15/19 at 09:00 Miscellaneous Information (* Miscellaneous Pharmacy Order) DURAMORPH: 0.1 MG SPI... GIVEN NEURAXIAL XX ; Start 02/14/19 at 10:30 Atorvastatin Calcium (Lipitor) 40 mg QHS PO Last administered on 02/15/19at 20:23; Admin Dose 40 MG; Start 02/14/19 at 21:00 Fenofibrate (Tricor) 145 mg DAILY PO Last administered on 02/16/19 08:36; Admin Dose 145 MG; Start 02/15/19 at 09:00 Losartan Potassium (Cozaar) 100 mg DAILY PO Last administered on 02/16/19at 08:35; Admin Dose 100 MG; Start 02/15/19 at 09:00 Hydrochlorothiazide (Hydrochlorothiazide) 12.5 mg DAILY@0600 PO ; Start 02/15/19 at 06:00 Diagnostic Test (Pha) (Accu-Chek) 1 ea 02 XX ; Start 02/15/19 at 02:00 Insulin Aspart (Novolog Insulin Pen) NOVOLOG *MILD* ALGORITHM WITH MEALS BEDTIME SC Last administered on 02/15/19at 17:47; Admin Dose 3 UNIT; Start 02/14/19 at 12:00 Amlodipine Besylate (Norvasc) 10 mg DAILY PO Last administered on 02/16/19at 08:36; Admin Dose 10 MG; Start 02/14/19 at 13:00 Hydralazine HCl (Apresoline) 10 mg Q4H PRN IV sbp >160; Start 02/14/19 at 11:30 Miscellaneous Information 1 ea NOTE XX ; Start 02/14/19 at 13:00 Glucose (Glutose) 15 gm Q15M PRN PO DECREASED GLUCOSE; Start 02/14/19 at 13:00 Glucose (Glutose) 22.5 gm Q15M PRN PO DECREASED GLUCOSE; Start 02/14/19 at 13:00 Dextrose (D50w Syringe) 25 ml Q15M PRN IV DECREASED GLUCOSE; Start 02/14/19 at 13:00 Dextrose (D50w Syringe) 50 ml Q15M PRN IV DECREASED GLUCOSE; Start 02/14/19 at 13:00 Glucagon (Glucagen) 1 mg Q15M PRN IM DECREASED GLUCOSE; Start 02/14/19 at 13:00 Glucose (Glutose) 15 gm Q15M PRN BUCCAL DECREASED GLUCOSE; Start 02/14/19 at 13:00 Metoclopramide HCl (Reglan) 10 mg Q6H PRN IV NAUSEA; Start 02/14/19 at 22:00 Insulin Glargine (Lantus) 20 units BID SC Last administered on 02/16/19at 08:34; Admin Dose 20 UNITS; Start 02/15/19 at 09:00 Tramadol HCl (Ultram) 50 mg Q6H PRN PO MODERATE PAIN LEVEL 4-6 Last administered on 02/16/19at 11:54; Admin Dose 50 MG; Start 02/15/19 at 11:30 Acetaminophen/ Hydrocodone Bitart ([place] (5/325)) 1 tab Q4H PRN PO MODERATE PAIN LEVEL 4-6; Start 02/15/19 at 17:00 Insulin Aspart (Novolog Insulin Pen) 3 unit WITH MEALS SC ; Start 02/16/19 at 17:55 Docusate Sodium (Colace) 100 mg BID PO ; Start 02/16/19 at 21:00 VTE Prophylaxis Risk score (from [facility])>0 risk: 4 SCD applied (from [facility]): Yes Lines/Catheters IV Catheter Type: Rutledge in Place: No Assessment/Plan Hospital Course Subjective Patient doing better than yesterday, pain is slightly improved, able to walk a little bit with physical therapy Objective Physical exam General: Patient is laying in bed and answers questions appropriately Mentation: Patient is alert and oriented 4, Head: Normocephalic atraumatic Eyes: EOMI, pupils reactive to light Neck: Supple, nontender, midline Respiratory: Clear to auscultation bilaterally Cardiovascular: regular rate, no obvious murmurs Gastrointestinal: non-tender to palpation, bowel sounds heard. Neurological: Moves all extremities spontaneously Skin: Surgical site bandaged, CDI Assessment and plan Total right hip arthroplasty -Orthopedic surgery to manage -Pain control -Monitor Anemia -Likely secondary to some blood loss during surgery as well as hemodilution no appreciable blood, no bowel movement yet will monitor for bowel movement -Iron panel pending - Hypertension -Resume home meds when able, will slowly titrate medications This lipidemia -Continue atorvastatin from home Diabetes mellitus -Patient takes glargine 20 units twice a day, will use Lantus while in the hospital, will hold all other p.o. medications and will use insulin while in house GERD -PPI Disposition -Patient accepted into acute rehab unit, will currently monitor for drop and hemoglobin, ANGELINA GUTIERREZ Feb 16, 2019 15:48
[2019-02-16 20:02] VITALS: BP 119/59; PULSE 69; RESP 17
[2019-02-16] MEDS: DOCUSATE SODIUM 100 MG CAP PO SCH (20:30)
[2019-02-16] MEDS: ATORVASTATIN 40 MG TAB PO SCH (20:30)
[2019-02-17] MEDS: ACCU-CHEK XX SCH (02:00)
[2019-02-17 02:23] VITALS: BP 118/60; PULSE 66; RESP 20
[2019-02-17] MEDS: PANTOPRAZOLE (EC) 40 MG TAB PO SCH (05:35)
[2019-02-17] MEDS: HYDROCHLOROTHIAZIDE 12.5 MG CAP PO SCH (05:48)
[2019-02-17 07:20] VITALS: BP 129/61; PULSE 69; RESP 18
[2019-02-17] MEDS: INSULIN ASPART [NOVOLOG] 3 ML PEN SC SCH ×7 (07:50→22:01)
[2019-02-17] MEDS: LOSARTAN 50 MG TAB PO SCH (09:24)
[2019-02-17] MEDS: AMLODIPINE 10 MG TAB PO SCH (09:25)
[2019-02-17] MEDS: DOCUSATE SODIUM 100 MG CAP PO SCH ×2 (09:25→21:54)
[2019-02-17] MEDS: INSULIN GLARGINE [LANTus] (100 UNITS/ML) SYG SC SCH ×2 (09:25→22:02)
[2019-02-17] MEDS: CELECOXIB 100 MG CAP PO SCH (09:25)
[2019-02-17] MEDS: GABAPENTIN 100 MG CAP PO SCH (09:26)
[2019-02-17] MEDS: FENOFIBRATE 145 MG TAB PO SCH (09:26)
[2019-02-17] MEDS: ASPIRIN (EC) 81 MG TAB PO SCH ×2 (09:26→21:54)
[2019-02-17] MEDS ORDERED: KETOROLAC 15 MG INJ IM PRN (11:30)
[2019-02-17] MEDS: GABAPENTIN 300 MG CAP PO SCH ×2 (12:34→21:54)
[2019-02-17] MEDS: KETOROLAC 15 MG INJ IV PRN ×2 (12:34→17:23)
--- NOTE | 2019-02-17 12:35 | PN ---
Date/Time of Note Date/Time of Note DATE: 02/17/19 TIME: 12:18 Objective Vitals Vital Signs Date Temp Pulse Resp B/P (MAP) Pulse Ox O2 O2 Flow FiO2 Time Delivery Rate 02/17/19 98.2 69 18 129/61 99 Room Air 07:20 (83) 02/15/19 3.0 07:59 Intake and Output 02/16/19 02/16/19 02/17/19 1515:00 23:00 07:00 IntakeIntake Total 620 ml 200 ml BalanceBalance 620 ml 200 ml Results Result Diagram: 02/17/19 0434 02/17/19 0434 Medications Medications Current Medications Ropivacaine/ Morphine Sulfate/ Clonidine/ Epinephrine/ Ketorolac Tromethamine/ Vancomycin HCl/ Sodium Chloride INTRA-OP INJ ; Start 02/14/19 at 07:30 Pantoprazole (Protonix Tab) 40 mg DAILY@06 PO Last administered on 02/17/19at 05:35; Admin Dose 40 MG; Start 02/15/19 at 06:00 Ketorolac Tromethamine (Toradol) 15 mg Q6H PRN IV .PAIN Last administered on 02/16/19at 08:41; Admin Dose 15 MG; Start 02/14/19 at 10:30 IV Flush (NS 3 ml) 3 ml per protocol IV ; Start 02/14/19 at 10:30 Aspirin (Halfprin) 81 mg BID PO Last administered on 02/17/19at 09:26; Admin Dose 81 MG; Start 02/15/19 at 09:00 Miscellaneous Information (* Miscellaneous Pharmacy Order) DURAMORPH: 0.1 MG SPI... GIVEN NEURAXIAL XX ; Start 02/14/19 at 10:30 Atorvastatin Calcium (Lipitor) 40 mg QHS PO Last administered on 02/16/19at 20:30; Admin Dose 40 MG; Start 02/14/19 at 21:00 Fenofibrate (Tricor) 145 mg DAILY PO Last administered on 02/17/19at 09:26; Admin Dose 145 MG; Start 02/15/19 at 09:00 Losartan Potassium (Cozaar) 100 mg DAILY PO Last administered on 02/17/19at 09:24; Admin Dose 100 MG; Start 02/15/19 at 09:00 Hydrochlorothiazide (Hydrochlorothiazide) 12.5 mg DAILY@0600 PO ; Start 02/15/19 at 06:00 Diagnostic Test (Pha) (Accu-Chek) 1 ea 02 XX ; Start 02/15/19 at 02:00 Insulin Aspart (Novolog Insulin Pen) NOVOLOG *MILD* ALGORITHM WITH MEALS BEDTIME SC Last administered on 02/16/19at 20:33; Admin Dose 2 UNIT; Start 02/14/19 at 12:00 Amlodipine Besylate (Norvasc) 10 mg DAILY PO Last administered on 02/17/19at 09:25; Admin Dose 10 MG; Start 02/14/19 at 13:00 Hydralazine HCl (Apresoline) 10 mg Q4H PRN IV sbp >160; Start 02/14/19 at 11:30 Miscellaneous Information 1 ea NOTE XX ; Start 02/14/19 at 13:00 Glucose (Glutose) 15 gm Q15M PRN PO DECREASED GLUCOSE; Start 02/14/19 at 13:00 Glucose (Glutose) 22.5 gm Q15M PRN PO DECREASED GLUCOSE; Start 02/14/19 at 13:00 Dextrose (D50w Syringe) 25 ml Q15M PRN IV DECREASED GLUCOSE; Start 02/14/19 at 13:00 Dextrose (D50w Syringe) 50 ml Q15M PRN IV DECREASED GLUCOSE; Start 02/14/19 at 13:00 Glucagon (Glucagen) 1 mg Q15M PRN IM DECREASED GLUCOSE; Start 02/14/19 at 13:00 Glucose (Glutose) 15 gm Q15M PRN BUCCAL DECREASED GLUCOSE; Start 02/14/19 at 13:00 Metoclopramide HCl (Reglan) 10 mg Q6H PRN IV NAUSEA; Start 02/14/19 at 22:00 Insulin Glargine (Lantus) 20 units BID SC Last administered on 02/17/19at 09:25; Admin Dose 20 UNITS; Start 02/15/19 at 09:00 Tramadol HCl (Ultram) 50 mg Q6H PRN PO MODERATE PAIN LEVEL 4-6 Last administered on 02/16/19at 18:06; Admin Dose 50 MG; Start 02/15/19 at 11:30 Acetaminophen/ Hydrocodone Bitart ([place] (5/325)) 1 tab Q4H PRN PO MODERATE PAIN LEVEL 4-6; Start 02/15/19 at 17:00 Insulin Aspart (Novolog Insulin Pen) 3 unit WITH MEALS SC Last administered on 02/17/19at 09:24; Admin Dose 3 UNIT; Start 02/16/19 at 17:55 Docusate Sodium (Colace) 100 mg BID PO Last administered on 02/17/19at 09:25; Admin Dose 100 MG; Start 02/16/19 at 21:00 Ferric Sodium Gluconate Complex 125 mg/Sodium Chloride 100 ml @ 100 mls/hr DAILY@1300 IVPB ; Start 02/17/19 at 13:00; Stop 02/19/19 at 13:59 Gabapentin (Neurontin) 300 mg TID PO ; Start 02/17/19 at 13:00 Ketorolac Tromethamine (Toradol) 15 mg Q6H PRN IM PAIN; Start 02/17/19 at 11:30; Stop 02/20/19 at 11:29 VTE Prophylaxis Risk score (from [facility])>0 risk: 4 SCD applied (from [facility]): Yes Lines/Catheters IV Catheter Type: Rutledge in Place: No Assessment/Plan Hospital Course Subjective Patient doing better than yesterday, pain is slightly improved, able to walk a little bit with physical therapy Objective Physical exam General: Patient is laying in bed and answers questions appropriately Mentation: Patient is alert and oriented 4, Head: Normocephalic atraumatic Eyes: EOMI, pupils reactive to light Neck: Supple, nontender, midline Respiratory: Clear to auscultation bilaterally Cardiovascular: regular rate, no obvious murmurs Gastrointestinal: non-tender to palpation, bowel sounds heard. Neurological: Moves all extremities spontaneously Skin: Surgical site bandaged, CDI Assessment and plan Total right hip arthroplasty -Orthopedic surgery to manage -Pain control -Monitor Anemia -Likely secondary to some blood loss during surgery as well as hemodilution no appreciable blood, stable, no acute bleed noted -Iron panel noted, giving IV iron. Hypertension -Resume home meds when able, will slowly titrate medications This lipidemia -Continue atorvastatin from home Diabetes mellitus -Patient takes glargine 20 units twice a day, will use Lantus while in the hospital, will hold all other p.o. medications and will use insulin while in house GERD -PPI Disposition -Patient accepted into acute rehab unit, will transfer tomorrow as [facility] does not take sat transfers. ANGELINA GUTIERREZ Feb 17, 2019 12:35
[2019-02-17] MEDS ORDERED: SOD FERRIC GLUC COMPLX 125 MG in SOD CHLORIDE 0.9% 100 ML IVPB SCH (13:00)
[2019-02-17 19:15] VITALS: BP 140/63; PULSE 72; RESP 18
[2019-02-17 21:54] VITALS: BP 172/76; PULSE 76; RESP 27
[2019-02-17] MEDS: ATORVASTATIN 40 MG TAB PO SCH (21:54)
[2019-02-17] MEDS ORDERED: HALOPERIDOL 5 MG INJ IM ONE (22:30)
[2019-02-17 23:50] VITALS: BP 140/61; PULSE 70; RESP 18
[2019-02-18] MEDS: ACCU-CHEK XX SCH (02:30)
[2019-02-18] MEDS ORDERED: MAGNESIUM HYDROXIDE 30ML CUP PO PRN (02:30)
[2019-02-18 02:35] VITALS: BP 136/69; PULSE 77; RESP 18
[2019-02-18] MEDS: HYDROCHLOROTHIAZIDE 12.5 MG CAP PO SCH (06:45)
[2019-02-18] MEDS: PANTOPRAZOLE (EC) 40 MG TAB PO SCH (06:45)
[2019-02-18] MEDS: INSULIN ASPART [NOVOLOG] 3 ML PEN SC SCH ×4 (07:50→12:31)
[2019-02-18 07:56] VITALS: BP 143/64; PULSE 64; RESP 18
[2019-02-18] MEDS: ASPIRIN (EC) 81 MG TAB PO SCH (08:46)
[2019-02-18] MEDS: LOSARTAN 50 MG TAB PO SCH (08:46)
[2019-02-18] MEDS: GABAPENTIN 300 MG CAP PO SCH ×2 (08:47→12:26)
[2019-02-18] MEDS: DOCUSATE SODIUM 100 MG CAP PO SCH (08:47)
[2019-02-18] MEDS: AMLODIPINE 10 MG TAB PO SCH (08:47)
[2019-02-18] MEDS: FENOFIBRATE 145 MG TAB PO SCH (08:47)
[2019-02-18] MEDS: INSULIN GLARGINE [LANTus] (100 UNITS/ML) SYG SC SCH (08:54)
[2019-02-18] MEDS ORDERED: ASPI-1044 PO (11:43)
[2019-02-18] MEDS ORDERED: GABA300C16 PO (11:43)
--- NOTE | 2019-02-18 11:47 | DS ---
Date/Time of Note Date/Time of Note DATE: 02/18/19 TIME: 11:46 Discharge Summary Admission/Discharge Info Admit Date/Time Feb 14, 2019 at 05:38 Discharge Date/Time Patient Condition: Stable Hospital Course Patient is an [place] female with past medical history significant for hypertension, dyslipidemia, diabetes mellitus, GERD and osteoarthritis who presented to [facility] for elective total right hip arthroplasty. Patient had uneventful surgery and was monitored over patient for some mild anemia which she was started on IV iron. Patient was doing well and awaiting transfer to acute rehab unit. However overnight patient did have a rapid response called due to sudden onset numbness in her feet and chest, EKG, troponin and other studies were done by night physician, patient currently resting comfortably with no acute issues, no chest pain, questionable anxiety attack. According to nurse patient is able to ambulate well and has no other residual issues except for her persistent right leg pain from the surgery as patient refuses to take narcotic pain medication as she has had bad experiences with the before. Patient only willing to take Toradol as well as tramadol. Patient otherwise doing well, labs look within normal limits, patient will follow up with her outpatient physician for her persistent anemia. Patient will be going to the acute rehab unit where she can be monitored and for return of persistent symptoms such as yesterday which included the numbness in her legs an d feet and the chest. Discharge diagnosis Total right hip arthroplasty Anemia, iron deficient Hypertension Dyslipidemia Diabetes mellitus GERD Home Meds Active Scripts Gabapentin* (Gabapentin*) 300 Mg Capsule, 300 MG PO TID for 14 Days, CAP Prov:ANGELINA GUTIERREZ 02/18/19 Aspirin Delayed Release (Aspirin Delayed Release) 81 Mg Tablet., 81 MG PO BID for 42 Days Prov:ANGELINA GUTIERREZ 02/18/19 Reported Medications Cholecalciferol (Vitamin D3) (Vitamin D3) 50,000 Unit Capsule, 01479 UNIT PO EVERY TUESDAY, CAP 02/14/19 Omeprazole* (Omeprazole*) 20 Mg Capsule., 20 MG PO DAILY, #30 CAP 02/14/19 Insulin Glargine,Hum.rec.anlog (Basaglar Kwikpen U-100) 100 Unit/1 Ml Insuln.pen, 50 UNIT SC DAILY, EA 02/14/19 Atorvastatin* (Atorvastatin*) 40 Mg Tablet, 40 MG PO QHS, #30 TAB 02/14/19 Metformin Hcl* (Metformin Hcl*) 1,000 Mg Tablet, 1000 MG PO WITH BREAKFAST DINNE, #60 TAB 02/14/19 Glipizide* (Glipizide*) 5 Mg Tablet, 5 MG PO BID, TAB 02/14/19 Fenofibrate Nanocrystallized* (Fenofibrate*) 145 Mg Tablet, 145 MG PO DAILY, TAB 02/14/19 Hydralazine Hcl* (Hydralazine Hcl*) 50 Mg Tab, 50 MG PO Q6H PRN for ELEVATED BLOOD PRESSURE, #60 TAB 02/14/19 Tramadol Hcl* (Ultram*) 50 Mg Tablet, 50 MG PO DAILY PRN for PAIN, TAB 02/14/19 Losartan-Hydrochlorothiazide (Losartan-HCTZ) 100-12.5 Mg Tab, 1 TAB PO DAILY, TAB 02/14/19 Canagliflozin (Invokana) 300 Mg Tablet, 300 MG PO DAILY, TAB 02/14/19 Amlodipine Besylate* (Amlodipine Besylate*) 10 Mg Tablet, 10 MG PO DAILY, #30 TAB 02/14/19 Discontinued Scripts Methylprednisolone* (Medrol* DOSE PACK) 4 Mg/Dose-Pack Tab.ds.pk, 4 MG PO . DIRECTED, #1 PACKET Prov:DEBBIE HERNANDEZ PA-C 02/14/18 Naproxen* (Naprosyn*) 500 Mg Tablet, 500 MG PO BID PRN for PAIN AND/OR INFLAM MATION, #30 TAB Prov:DEBBIE HERNANDEZ PA-C 02/14/18 Cyclobenzaprine Hcl* (Cyclobenzaprine Hcl*) 10 Mg Tablet, 10 MG PO TID, #15 TAB Prov:DEBBIE HERNANDEZ PA-C 02/14/18 Hydrocodone/Acetaminophen ([place] 5-325 Tablet) 1 Each Tablet, 1 TAB PO Q6H PRN for PAIN, #7 TAB Prov:DEBBIE HERNANDEZ PA-C 02/14/18 Primary Care Provider Not On Staff Doctor Time spent on discharge: > 30 minutes Pending Labs Laboratory Tests Test 02/17/19 13:24 02/17/19 17:47 02/17/19 21:53 02/17/19 22:23 Bedside 163 107 181 Glucose mg/dL (70-220) mg/dL (70-220) mg/dL (70-220) White Blood 9.3 Count 10^3/ul (4.8-1 0.8) Red Blood 2.87 Count 10^6/ul (4.20- 5.40) Hemoglobin 8.1 g/dl (12.0-16. 0) Hematocrit 25.2 % (37.0-47.0) Mean 87.8 Corpuscular fl (82.0-101.0 Volume ) Mean 28.2 Corpuscular pg (29.0-33.0) Hemoglobin Mean 32.1 Corpuscular g/dl (32.0-37. Hemoglobin Conc 0) ent Red Cell 12.9 Distribution % (11.5-14.5) Width Platelet Count 240 10^3/UL (140-4 15) Mean Platelet 11.2 Volume fl (7.4-10.4) Immature 0.500 Granulocytes % % (0.001-0.429 ) Neutrophils % 67.1 % (39.0-77.0) Lymphocytes % 23.7 % (15.0-51.0) Monocytes % 6.5 % (0.0-11.0) Eosinophils % 1.7 % (0.0-7.0) Basophils % 0.5 % (0.0-2.0) Nucleated Red 0.0 Blood Cells % /100WBC (0.0-0 .0) Immature 0.050 Granulocytes # 10^3/ul (0.0-0 .031) Neutrophils # 6.2 10^3/ul (1.6-7 .5) Lymphocytes # 2.2 10^3/ul (0.8-2 .9) Monocytes # 0.6 10^3/ul (0.3-0 .9) Eosinophils # 0.2 10^3/ul (0.0-0 .5) Basophils # 0.1 10^3/ul (0.0-0 .1) Nucleated Red 0.0 Blood Cells # 10^3/ul (0.0-0 .0) Sodium Level 143 mmol/L (135-14 4) Potassium 4.0 Level mmol/L (3.5-5. 1) Chloride Level 108 mmol/L (97-110 ) Carbon Dioxide 28 Level mmol/L (21-31) Anion Gap 7 (5-13) Blood Urea 21 Nitrogen mg/dl (7-20) Creatinine 0.79 mg/dl (0.44-1. 00) Est Glomerular mL/min (>60) Filtrat Rate mL/min Glucose Level 165 mg/dl (70-220) Calcium Level 8.4 mg/dl (8.4-10. 2) Magnesium 2.1 Level mg/dl (1.7-2.5 ) Total 0.6 Bilirubin mg/dl (0.2-1.3 ) Direct 0.00 Bilirubin mg/dl (0.00-0. 20) Indirect 0.6 Bilirubin mg/dl (0-1.1) Aspartate Amino 28 Transf (AST/SGO IU/L (15-46) T) Alanine 20 Aminotransferas IU/L (13-69) e (ALT/SGPT) Alkaline 67 Phosphatase IU/L (42-121) Troponin I 0.012 ng/ml (0.000-0 .120) Total Protein 5.5 g/dl (6.1-8.1) Albumin 2.8 g/dl (3.3-4.9) Globulin 2.70 g/dl (1.3-3.2) Albumin/Globuli 1.03 n Ratio Test 02/18/19 02:31 02/18/19 04:20 02/18/19 08:45 Bedside 127 113 Glucose mg/dL (70-220) mg/dL (70-220) White Blood 9.5 Count 10^3/ul (4.8-1 0.8) Red Blood 2.93 Count 10^6/ul (4.20- 5.40) Hemoglobin 8.2 g/dl (12.0-16. 0) Hematocrit 25.9 % (37.0-47.0) Mean 88.4 Corpuscular fl (82.0-101.0 Volume ) Mean 28.0 Corpuscular pg (29.0-33.0) Hemoglobin Mean 31.7 Corpuscular g/dl (32.0-37. Hemoglobin Conc 0) ent Red Cell 13.0 Distribution % (11.5-14.5) Width Platelet Count 251 10^3/UL (140-4 15) Mean Platelet 11.6 Volume fl (7.4-10.4) Immature 0.300 Granulocytes % % (0.001-0.429 ) Neutrophils % 65.6 % (39.0-77.0) Lymphocytes % 24.2 % (15.0-51.0) Monocytes % 7.3 % (0.0-11.0) Eosinophils % 2.2 % (0.0-7.0) Basophils % 0.4 % (0.0-2.0) Nucleated Red 0.0 Blood Cells % /100WBC (0.0-0 .0) Immature 0.030 Granulocytes # 10^3/ul (0.0-0 .031) Neutrophils # 6.2 10^3/ul (1.6-7 .5) Lymphocytes # 2.3 10^3/ul (0.8-2 .9) Monocytes # 0.7 10^3/ul (0.3-0 .9) Eosinophils # 0.2 10^3/ul (0.0-0 .5) Basophils # 0.0 10^3/ul (0.0-0 .1) Nucleated Red 0.0 Blood Cells # 10^3/ul (0.0-0 .0) Sodium Level 145 mmol/L (135-14 4) Potassium 3.8 Level mmol/L (3.5-5. 1) Chloride Level 109 mmol/L (97-110 ) Carbon Dioxide 30 Level mmol/L (21-31) Anion Gap 6 (5-13) Blood Urea 17 Nitrogen mg/dl (7-20) Creatinine 0.71 mg/dl (0.44-1. 00) Est Glomerular mL/min (>60) Filtrat Rate mL/min Glucose Level 111 mg/dl (70-220) Calcium Level 8.4 mg/dl (8.4-10. 2) ANGELINA GUTIERREZ Feb 18, 2019 11:47
== END 2019-02-18 15:40 | DRG 470 ==
LOC: REC 05:38 → MS1 12:17
PROVIDERS: ADMIT Orthopaedic Surgery Adult Reconstructive Orthopaedic Surgery; ATTEND Orthopaedic Surgery Adult Reconstructive Orthopaedic Surgery
PROC: 0SR903Z Replacement of Right Hip Joint with Ceramic Synthetic Substitute, Open Approach (ICD-10-PCS; principal; 2019-02-14 07:30)
DX: M16.11 Unilateral primary osteoarthritis, right hip (principal); I10 Essential (primary) hypertension; E78.5 Hyperlipidemia, unspecified; E11.9 Type 2 diabetes mellitus without complications; K21.9 Gastro-esophageal reflux disease without esophagitis; Z79.4 Long term (current) use of insulin; D50.9 Iron deficiency anemia, unspecified
CPT/HCPCS: 72170; 73500; 73530; 80048; 80053; 82728; 82962; 83540; 83735; 84100; 84484; 85025; 85610; 88304; 88311; 93005; 93970; 97110; 97116; 97161; 97165; 97530; 97535; C1713; C1776; J0360; J0690; J1100; J1630; J1815; J1885; J2250; J2270; J2274; J2370; J2405; J2765; J2795; J2916

== ENCOUNTER 2019-02-16 15:30 | Inpatient (IN) | payer OTHER ==
[~2019-02-16] VITALS: Ht 144.8 cm; Wt 71.9 kg
[~2019-02-16 15:30] MED LIST changes: +AMLO-147 PO; +ATOR40TA68 PO; +CANA300T PO; +CHOL500051 PO; -CYCL10TA7 PO; +FENO145T37 PO; +GLIP5TAB13 PO; +HYDR-3672 PO; -HYDR-4011 PO; +INSU100I33 SC; +LOSA1TAB28 PO; -MED4DP PO; +METF100010 PO; -NAPR-985 PO; +OMEP20CA16 PO; +TRAM50TA PO
[2019-02-18] MEDS ORDERED: ASPI-1044 PO (11:43)
[2019-02-18] MEDS ORDERED: GABA300C16 PO (11:43)
[2019-02-18 17:35] VITALS: Ht 144.8 cm; Wt 71.9 kg
[2019-02-18] MEDS ORDERED: ACETAMINOPHEN 325 MG TAB PO PRN (18:00)
[2019-02-18] MEDS ORDERED: LACTULOSE 30ML CUP PO PRN (18:00)
[2019-02-18] MEDS ORDERED: MAGNESIUM HYDROXIDE 30ML CUP PO PRN ×2 (18:00→22:30)
[2019-02-18] MEDS ORDERED: BISACODYL 10 MG SUPP PR PRN (18:00)
[2019-02-18] MEDS ORDERED: PENDING SANTYL ORDER FOR WOUND CARE XX PRN (18:00)
[2019-02-18 20:00] VITALS: BP 127/60; PULSE 87; RESP 18
[2019-02-18] MEDS ORDERED: DOCUSATE SODIUM 100 MG CAP PO SCH (21:00)
[2019-02-18 21:33] VITALS: BP 150/65; PULSE 84; RESP 18
[2019-02-18] MEDS ORDERED: traMADol 50 MG TAB PO PRN (22:00)
[2019-02-18] MEDS ORDERED: KETOROLAC 15 MG INJ IV PRN (22:00)
[2019-02-18] MEDS ORDERED: ASPIRIN (EC) 81 MG TAB PO SCH (22:00)
[2019-02-18] MEDS ORDERED: hydrALAzine 20 MG INJ IV PRN (22:00)
[2019-02-18] MEDS ORDERED: GLUCOSE GEL 15 GRAM TUBE BUCCAL PRN (22:30)
[2019-02-18] MEDS ORDERED: GLUCAGON 1 MG INJ IM PRN (22:30)
[2019-02-18] MEDS ORDERED: DEXTROSE 50% 50 ML SYRINGE IV PRN ×2 (22:30)
[2019-02-18] MEDS ORDERED: GLUCOSE GEL 15 GRAM TUBE PO PRN ×2 (22:30)
[2019-02-18] MEDS: SENNA TAB PO SCH (22:57)
[2019-02-18] MEDS: ATORVASTATIN 40 MG TAB PO SCH (22:57)
[2019-02-18] MEDS: GABAPENTIN 300 MG CAP PO SCH (22:57)
[2019-02-18] MEDS ORDERED: INSULIN GLARGINE [LANTus] (100 UNITS/ML) SYG SC SCH ×2 (23:00→23:30)
[2019-02-18] MEDS: INSULIN ASPART [NOVOLOG] 3 ML PEN SC SCH (23:13)
[2019-02-18] MEDS: INSULIN GLARGINE [LANTus] (100 UNITS/ML) SYG SC SCH (23:23)
[2019-02-19] MEDS ORDERED: METOCLOPRAMIDE 10 MG INJ IV SCH ×2
[2019-02-19] MEDS ORDERED: METOCLOPRAMIDE 10 MG INJ IV PRN
[2019-02-19 02:39] VITALS: BP 147/68; PULSE 80; RESP 18
[2019-02-19] MEDS: ACCU-CHEK XX SCH (02:41)
[2019-02-19] MEDS: PANTOPRAZOLE (EC) 40 MG TAB PO SCH (06:17)
[2019-02-19 07:30] VITALS: BP 130/60; PULSE 70; RESP 18
[2019-02-19] MEDS ORDERED: INSULIN ASPART [NOVOLOG] 3 ML PEN SC SCH (07:35)
[2019-02-19] MEDS: INSULIN ASPART [NOVOLOG] 3 ML PEN SC SCH ×7 (08:31→21:33)
[2019-02-19] MEDS: INSULIN GLARGINE [LANTus] (100 UNITS/ML) SYG SC SCH ×2 (08:34→21:44)
[2019-02-19] MEDS: DOCUSATE SODIUM 100 MG CAP PO SCH ×2 (08:40→21:31)
[2019-02-19] MEDS: LOSARTAN 50 MG TAB PO SCH (08:40)
[2019-02-19] MEDS: FENOFIBRATE 145 MG TAB PO SCH (08:41)
[2019-02-19] MEDS: HYDROCHLOROTHIAZIDE 12.5 MG CAP PO SCH (08:42)
[2019-02-19] MEDS: ASPIRIN (EC) 81 MG TAB PO SCH ×2 (08:43→21:32)
[2019-02-19] MEDS: AMLODIPINE 10 MG TAB PO SCH (08:43)
[2019-02-19] MEDS: GABAPENTIN 300 MG CAP PO SCH ×3 (08:43→21:31)
--- NOTE | 2019-02-19 11:24 | CONS ---
DATE OF ADMISSION: 02/18/2019 DATE OF CONSULTATION: 02/19/2019 REHABILITATION POSTADMISSION PHYSICIAN EVALUATION DATE OF ADMISSION TO THE REHABILITATION UNIT: 02/18/2019 DATE OF CONSULTATION: 02/19/2019 REHABILITATION IMPAIRMENT CATEGORY: Other orthopedic injury with severe osteoarthritis, status post right total hip arthroplasty. ACTIVE COMORBIDITIES: 1. Acute pain syndrome. 2. Hypertension. 3. Diabetes mellitus. 4. Hyperlipidemia. 5. Gastroesophageal reflux disease. 6. Impairments in self-care and mobility. HISTORY OF PRESENT ILLNESS: The patient is a pleasant 73-year-old female with a history of multiple medical comorbidities in addition to severe osteoarthritis with right hip pain despite conservative measures. The patient was admitted to [facility] and did undergo a right total hip arthroplasty, anterior approach. Her postoperative course has been notable for significant pain, lower extremity numbness, and significant impairments in self-care and mobility as compared to baseline. The patient has been cleared to transfer to the rehabilitation unit for comprehensive interdisciplinary rehab care. FUNCTIONAL HISTORY: Prior to recent events, the patient was independent in self-care tasks and mobility. Currently, the patient requires moderate to maximal assist for self-care and mobility tasks. I have reviewed the preadmission screen, and patient's current functional status is consistent with the preadmission screen. FAMILY AND SOCIAL HISTORY: The patient lives at home with her son in a second floor apartment with multiple stair steps and hopes to return there upon discharge. PAST MEDICAL HISTORY: 1. Hypertension. 2. Diabetes mellitus. 3. Hyperlipidemia. 4. Gastroesophageal reflux disease. 5. Osteoarthritis. CURRENT MEDICATIONS: 1. Norvasc 10 mg p.o. daily. 2. Aspirin 81 mg p.o. b.i.d. 3. Lipitor 40 mg p.o. daily. 4. Colace 100 mg b.i.d. 5. TriCor 145 mg p.o. daily. 6. Neurontin 300 mg p.o. t.i.d. 7. Insulin sliding scale. 8. [place] p.r.n. 9. Hydrochlorothiazide 12.5 mg p.o. daily. 10. Lantus 20 units subQ b.i.d. 11. Toradol 15 mg p.r.n. 12. Cozaar 100 mg p.o. daily. 13. Reglan 10 mg p.o. q.6 hours p.r.n. 14. Protonix 40 mg p.o. daily. 15. Ultram 50 mg p.o. q.6 hours p.r.n. ALLERGIES: THE PATIENT WITH NO KNOWN DRUG ALLERGIES. PHYSICAL EXAMINATION: VITAL SIGNS: The patient is currently afebrile with stable vital signs. HEENT: Extraocular motions appear intact. Oropharynx clear. NECK: Supple. LUNGS: Clear anteriorly. CARDIAC: S1, S2. ABDOMEN: Soft, nontender, positive bowel sounds. NEUROLOGIC: The patient is awake and alert and oriented x3, can follow simple 1-step commands. Cranial nerves are grossly intact. The patient has good strength in bilateral upper extremity and the left lower extremity. Dorsiflexion and plantar flexion intact on the right. PLAN: The patient has been admitted for comprehensive interdisciplinary acute rehab and is anticipated to tolerate 3 hours of daily therapy in divided doses for at least 5/7 days a week. Treatment plan will include: 1. Physical therapy to focus on bed mobility, transfers, and household ambulation, with the goal of having the patient reach standby assist level. 2. Occupational therapy to focus on hygiene, grooming, dressing, bathing, and toileting activities, with the goal of having the patient reach standby assist level. 3. Rehabilitation nursing for carryover of therapeutic interventions, with the goal of continent of bowel and bladder, and the goal of pain adequately managed on oral medications. REHABILITATION BARRIER: Pain. INTERVENTION FOR BARRIER: Interdisciplinary approach. ESTIMATED LENGTH OF STAY: 14 days. DISPOSITION GOAL: Home. I acknowledge that I performed a full physical examination on this patient within 24 hours of admission to the rehabilitation unit and attest that this patient is a good candidate for comprehensive interdisciplinary rehabilitation and is anticpated to make reasonable goals in a reasonable period of time as outlined above. Dictated By: SUGAR SALGUERO/NTS Conf#: [id number] DID#: [id number] CC: SUGAR URRUTIA MD;*EndCC* MTDD
[2019-02-19] MEDS ORDERED: SOD FERRIC GLUC COMPLX 125 MG in SOD CHLORIDE 0.9% 100 ML IVPB SCH (13:00)
[2019-02-19 14:00] VITALS: BP 149/66; PULSE 69; RESP 20
--- NOTE | 2019-02-19 15:04 | HP ---
Date/Time of Note Date/Time of Note DATE: 02/19/19 TIME: 14:57 Assessment/Plan VTE Prophylaxis Risk score (from Ns)>0 risk: 7 SCD applied (from [facility]): No SCD contraindicated: other (asa bid) Pharmacological prophylaxis: NA/contraindicated Pharm contraindication: low risk/ambulating, other (asa bid) Lines/Catheters IV [facility] (from [facility] [place] Assessment/Plan Hospital Course SUBJECTIVE: No acute episodes. Participating with physical therapy. OBJECTIVE: Vital signs-see below PHYSICAL EXAM: Constitutional: Adequately built,not in acute distress. HEENT: Head atraumatic and normocephalic. Eyes: Extraocular muscles intact. Anicteric sclerae. Pupils equal bilaterally, reactive to light. NECK: Supple without lymph node. CHEST: Clear and good breath sounds equally. No wheezing. No rhonchi. HEART: S1, S2. Regular rate and rhythm. ABDOMEN: Soft/non tender with no rebound tenderness. Bowel sounds were present. EXTREMITIES: left hip dressing c/d/i. Mild swelling around the site-no ecchymosis/bruising/hematoma. No cyanosis, clubbing or edema. NEUROLOGIC: Alert and oriented x3. No focal deficit. No sensory deficit. PSYCHOSOCIAL: No signs of depression. INTEGUMENTARY: No open wounds. ASSESSMENT AND PLAN: Right hip osteoarthritis, status post total right hip arthroplasty -Follow-up with orthopedic surgeon in 2 weeks -Pain control, DVT prophylaxis -PT/rehab Iron deficient anemia -S/P IV Iron. Start oral iron replacement Hypertension -Continue home medications Dyslipidemia/triglyceridemia -On statin/tricor DMII -Basal/bolus insulin-we will adjust the dose of bolus. GERD -PPI Obesity -Weight reduction advised DVT ppx: Aspirin twice daily per orthopedics/SCDs Patient was seen in collaboration with Dr. Ordoñez Result Diagram: 02/19/19 0602/[id number]/19625 Results 24hrs Laboratory Tests Test 02/18/19 17:30 02/19/19 02:05 02/19/19 06:26 02/19/19 08:10 Urine Color STRAW Urine Clarity CLEAR Urine pH 7.0 Urine Specific 1.003 [place] Urine Ketones NEGATIVE Urine Nitrite NEGATIVE Urine Bilirubin NEGATIVE Urine Urobilinogen NEGATIVE Urine Leukocyte NEGATIVE Esterase Urine Microscopic 0 RBC Urine Microscopic 0 WBC Urine Hemoglobin 1+ H Urine Glucose 3+ H Urine Total Protein NEGATIVE Bedside Glucose 235 H 143 White Blood Count 10.1 Red Blood Count 3.00 L Hemoglobin 8.3 L Hematocrit 26.5 L Mean Corpuscular 88.3 Volume Mean Corpuscular 27.7 L Hemoglobin Mean Corpuscular 31.3 L Hemoglobin Concent Red Cell 13.2 Distribution Width Platelet Count 263 Mean Platelet Volume 11.1 H Immature 1.000 H Granulocytes % Neutrophils % 65.3 Lymphocytes % 22.6 Monocytes % 8.5 Eosinophils % 2.2 Basophils % 0.4 Nucleated Red Blood 0.0 Cells % Immature 0.100 H Granulocytes # Neutrophils # 6.6 Lymphocytes # 2.3 Monocytes # 0.9 Eosinophils # 0.2 Basophils # 0.0 Nucleated Red Blood 0.0 Cells # Sodium Level 145 H Potassium Level 4.1 Chloride Level 110 Carbon Dioxide Level 30 Anion Gap 5 Blood Urea Nitrogen 20 Creatinine 0.80 Est Glomerular Filtrat Rate mL/min Glucose Level 169 Calcium Level 8.4 Total Bilirubin 0.5 Direct Bilirubin 0.00 Indirect Bilirubin 0.5 Aspartate Amino 17 Transf (AST/SGOT) Alanine 19 Aminotransferase (AL T/SGPT) Alkaline Phosphatase 65 Total Protein 5.4 L Albumin 2.8 L Globulin 2.60 Albumin/Globulin 1.07 Ratio Test 02/19/19 12:20 Bedside Glucose 193 HPI/ROS Admit Date/Time Admit Date/Time Feb 18, 2019 at 17:13 Hx of Present Illness This is a 73-year-old male with a past medical history of diabetes, hypertension, hyperlipidemia, GERD, admitted at [facility] on 02/14/2019 for elective total right hip arthroplasty. Patient's postoperative course was uneventful except for mild anemia requiring IV iron. Patient was then seen by physical therapy and was transferred to acute rehabilitation unit for further rehabilitation. At my encounter with the patient, patient denied any chest pain, palpitation, shortness of breath, nausea, vomiting, abdominal pain, loss of consciousness, dizziness or other constitutional symptoms.Labs stable except for hemoglobin 8.3, hematocrit 26.5, sodium 145, blood sugar 169. Vital signs stable. ROS A 12 point review of system was assessed and is negative other than what is mentioned in the HPI PMH/Family/Social Past Medical History See HPI Medications Current Medications Senna (Senokot) 1 tab HS PO Last administered on 02/18/19at 22:57; Admin Dose 1 TAB; Start 02/18/19 at 21:00 Magnesium Hydroxide (Milk Of Mag) 30 ml BID PRN PO CONSTIPATION; Start 02/18/19 at 18:00 Lactulose (Enulose) 20 gm DAILY PRN PO CONSTIPATION; Start 02/18/19 at 18:00 Bisacodyl (Dulcolax Supp) 10 mg DAILY PRN MS CONSTIPATION; Start 02/18/19 at 18:00 Acetaminophen (Tylenol Tab) 650 mg Q4H PRN PO PAIN; Start 02/18/19 at 18:00 Miscellaneous Information (Pending Santyl Order For Wound Care) This patient brumfield... PRN PRN XX WOUND CARE; Start 02/18/19 at 18:00 Amlodipine Besylate (Norvasc) 10 mg DAILY PO Last administered on 02/19/19at 08:43; Admin Dose 10 MG; Start 02/19/19 at 09:00 Atorvastatin Calcium (Lipitor) 40 mg HS PO Last administered on 02/18/19at 22:57; Admin Dose 40 MG; Start 02/18/19 at 21:00 Fenofibrate (Tricor) 145 mg DAILY PO Last administered on 02/19/19at 08:41; Admin Dose 145 MG; Start 02/19/19 at 09:00 Gabapentin (Neurontin) 300 mg TID PO Last administered on 02/19/19at 13:59; Admin Dose 300 MG; Start 02/18/19 at 21:00 Hydralazine HCl (Apresoline) 10 mg Q4 PRN IV SBP > 160; Start 02/18/19 at 22:00 Ketorolac Tromethamine (Toradol) 15 mg Q6 PRN IV PAIN AND/OR INFLAMMATION; Start 02/18/19 at 22:00; Stop 02/21/19 at 21:59 Losartan Potassium (Cozaar) 100 mg DAILY PO Last administered on 02/19/19at 08: 40; Admin Dose 100 MG; Start 02/19/19 at 09:00 Pantoprazole (Protonix Tab) 40 mg DAILY@06 PO Last administered on 02/19/19at 06:17; Admin Dose 40 MG; Start 02/19/19 at 06:00 Tramadol HCl (Ultram) 50 mg Q6H PRN PO MODERATE PAIN LEVEL 4-6; Start 02/18/19 at 22:00 Diagnostic Test (Pha) (Accu-Chek) 1 ea 02 XX Last administered on 02/19/19at 02:41; Admin Dose 1 EA; Start 02/19/19 at 02:00 Insulin Glargine (Lantus) 20 units DAILY@0800 SC Last administered on 02/19/19at 08:34; Admin Dose 20 UNITS; Start 02/19/19 at 08:00 Insulin Aspart (Novolog Insulin Pen) 3 unit WITH MEALS SC Last administered on 02/19/19at 12:24; Admin Dose 3 UNIT; Start 02/19/19 at 07:35 Miscellaneous Information 1 ea NOTE XX ; Start 02/18/19 at 22:30 Glucose (Glutose) 15 gm Q15M PRN PO DECREASED GLUCOSE; Start 02/18/19 at 22:30 Glucose (Glutose) 22.5 gm Q15M PRN PO DECREASED GLUCOSE; Start 02/18/19 at 22:30 Dextrose (D50w Syringe) 25 ml Q15M PRN IV DECREASED GLUCOSE; Start 02/18/19 at 22:30 Dextrose (D50w Syringe) 50 ml Q15M PRN IV DECREASED GLUCOSE; Start 02/18/19 at 22:30 Glucagon (Glucagen) 1 mg Q15M PRN IM DECREASED GLUCOSE; Start 02/18/19 at 22:30 Glucose (Glutose) 15 gm Q15M PRN BUCCAL DECREASED GLUCOSE; Start 02/18/19 at 22:30 Acetaminophen/ Hydrocodone Bitart ([place] (5/325)) 1 tab Q4H PRN PO MODERATE PAIN LEVEL 4-6; Start 02/18/19 at 22:30 Hydrochlorothiazide (Hydrochlorothiazide) 12.5 mg DAILY PO Last administered on 02/19/19at 08:42; Admin Dose 12.5 MG; Start 02/19/19 at 09:00 Docusate Sodium (Colace) 100 mg BID PO Last administered on 02/19/19at 08:40; Admin Dose 100 MG; Start 02/19/19 at 09:00 Magnesium Hydroxide (Milk Of Mag) 30 ml Q12 PRN PO CONSTIPATION; Start 02/18/19 at 22:30 Insulin Aspart (Novolog Insulin Pen) NOVOLOG *MILD* ALGORITHM WITH MEALS BEDTIME SC Last administered on 02/19/19at 12:25; Admin Dose 2 UNIT; Start 02/18/19 at 23:00 Aspirin (Halfprin) 81 mg BID PO Last administered on 02/19/19at 08:43; Admin Dose 81 MG; Start 02/19/19 at 09:00 Insulin Glargine (Lantus) 20 units DAILY@2000 SC Last administered on 02/18/19at 23:23; Admin Dose 20 UNITS; Start 02/18/19 at 23:30 Metoclopramide HCl (Reglan) 10 mg DAILY PRN IV NAUSEA; Start 02/19/19 at 00:00 Coded Allergies: No Known Allergy (Unverified , 02/14/18) Past Surgical History See HPI Social History Denied history of alcohol, smoking or illicit drug use Smoking Status: Never smoker Exam/Review of Systems Vital Signs Vitals Vital Signs Date Temp Pulse Resp B/P (MAP) Pulse Ox O2 O2 Flow FiO2 Time Delivery Rate 02/19/19 98.0 70 18 130/60 98 Room Air 07:30 (83) Intake and Output 02/18/19 02/18/19 02/19/19 1515:00 23:00 07:00 IntakeIntake Total 200 ml OutputOutput Total 150 ml BalanceBalance 50 ml RENATA KATE NP Feb 19, 2019 15:04
[2019-02-19 20:00] VITALS: BP 145/65; PULSE 76; RESP 18
[2019-02-19] MEDS ORDERED: INSULIN GLARGINE [LANTus] (100 UNITS/ML) SYG SC SCH (20:00)
[2019-02-19] MEDS: SENNA TAB PO SCH (21:31)
[2019-02-19] MEDS: FERROUS SULFATE (EC) 325 MG TAB PO SCH (21:31)
[2019-02-19] MEDS: ATORVASTATIN 40 MG TAB PO SCH (21:31)
[2019-02-20] MEDS: ACCU-CHEK XX SCH (02:00)
[2019-02-20 02:30] VITALS: BP 142/68; PULSE 71; RESP 18
[2019-02-20] MEDS: PANTOPRAZOLE (EC) 40 MG TAB PO SCH (05:54)
[2019-02-20 07:00] VITALS: BP 129/60; PULSE 67; RESP 18
[2019-02-20] MEDS: INSULIN ASPART [NOVOLOG] 3 ML PEN SC SCH ×7 (08:04→21:00)
[2019-02-20] MEDS: INSULIN GLARGINE [LANTus] (100 UNITS/ML) SYG SC SCH (08:06)
[2019-02-20] MEDS: HYDROCODONE/APAP (5/325) TAB PO PRN (09:52)
[2019-02-20] MEDS: ASPIRIN (EC) 81 MG TAB PO SCH ×2 (09:52→20:53)
[2019-02-20] MEDS: DOCUSATE SODIUM 100 MG CAP PO SCH ×2 (09:53→20:57)
[2019-02-20] MEDS: FENOFIBRATE 145 MG TAB PO SCH (09:53)
[2019-02-20] MEDS: LOSARTAN 50 MG TAB PO SCH (09:53)
[2019-02-20] MEDS: GABAPENTIN 300 MG CAP PO SCH ×3 (09:54→20:53)
[2019-02-20] MEDS: HYDROCHLOROTHIAZIDE 12.5 MG CAP PO SCH (09:54)
[2019-02-20] MEDS: AMLODIPINE 10 MG TAB PO SCH (09:54)
[2019-02-20] MEDS: FERROUS SULFATE (EC) 325 MG TAB PO SCH ×2 (09:54→20:53)
--- NOTE | 2019-02-20 13:36 | PN ---
Date/Time of Note Date/Time of Note DATE: 02/20/19 TIME: 13:35 Subjective Up with therapy Objective Vital Signs Date Temp Pulse Resp B/P (MAP) Pulse Ox O2 O2 Flow FiO2 Time Delivery Rate 02/20/19 98.2 67 18 129/60 97 Room Air 07:00 (83) Intake and Output 02/19/19 02/19/19 02/20/19 1515:00 23:00 07:00 IntakeIntake Total 450 ml 220 ml 50 ml BalanceBalance 450 ml 220 ml 50 ml Exam pulm-cta mod transfer mod ambulation Results/Medications Result Diagram: 02/19/19 0602/19/19 06 Results 24 hrs Laboratory Tests Test 02/19/19 17:21 02/19/19 21:30 02/20/19 02:22 02/20/19 07:54 Bedside Glucose 277 H 295 H 259 H 224 H Test 02/20/19 12:11 Bedside Glucose 250 H Medications Current Medications Senna (Senokot) 1 tab HS PO Last administered on 02/19/19at 21:31; Admin Dose 1 TAB; Start 02/18/19 at 21:00 Magnesium Hydroxide (Milk Of Mag) 30 ml BID PRN PO CONSTIPATION; Start 02/18/19 at 18:00 Lactulose (Enulose) 20 gm DAILY PRN PO CONSTIPATION; Start 02/18/19 at 18:00 Bisacodyl (Dulcolax Supp) 10 mg DAILY PRN [place] CONSTIPATION Last administered on 02/20/19at 05:54; Admin Dose 10 MG; Start 02/18/19 at 18:00 Acetaminophen (Tylenol Tab) 650 mg Q4H PRN PO PAIN; Start 02/18/19 at 18:00 [facility]isc[facility] This patient brumfield... PRN PRN XX WOUND CARE; Start 02/18/19 at 18:00 Amlodipine Besylate (Norvasc) 10 mg DAILY PO Last administered on 02/20/19at 09:54; Admin Dose 10 MG; Start 02/19/19 at 09:00 Atorvastatin Calcium (Lipitor) 40 mg HS PO Last administered on 02/19/19 21: 31; Admin Dose 40 MG; Start 02/18/19 at 21:00 Fenofibrate (Tricor) 145 mg DAILY PO Last administered on 6/25/19at 09:53; Admin Dose 145 MG; Start 02/19/19 at 09:00 Gabapentin (Neurontin) 300 mg TID PO Last administered on 02/20/19at 12:18; Admin Dose 300 MG; Start 02/18/19 at 21:00 Ketorolac Tromethamine (Toradol) 15 mg Q6 PRN IV PAIN AND/OR INFLAMMATION; Start 02/18/19 at 22:00; Stop 02/21/19 at 21:59 Losartan Potassium (Cozaar) 100 mg DAILY PO Last administered on 02/20/19at 09:53; Admin Dose 100 MG; Start 02/19/19 at 09:00 Pantoprazole (Protonix Tab) 40 mg DAILY@06 PO Last administered on 02/20/19at 05:54; Admin Dose 40 MG; Start 02/19/19 at 06:00 Tramadol HCl (Ultram) 50 mg Q6H PRN PO MODERATE PAIN LEVEL 4-6; Start 02/18/19 at 22:00 Diagnostic Test (Pha) (Accu-Chek) 1 ea 02 XX Last administered on 02/19/19at 02:41; Admin Dose 1 EA; Start 02/19/19 at 02:00 Insulin Glargine (Lantus) 20 units DAILY@0800 SC Last administered on 02/20/19at 08:06; Admin Dose 20 UNITS; Start 02/19/19 at 08:00 Miscellaneous Information 1 ea NOTE XX ; Start 02/18/19 at 22:30 Glucose (Glutose) 15 gm Q15M PRN PO DECREASED GLUCOSE; Start 02/18/19 at 22:30 Glucose (Glutose) 22.5 gm Q15M PRN PO DECREASED GLUCOSE; Start 02/18/19 at 22:30 Dextrose (D50w Syringe) 25 ml Q15M PRN IV DECREASED GLUCOSE; Start 02/18/19 at 22:30 Dextrose (D50w Syringe) 50 ml Q15M PRN IV DECREASED GLUCOSE; Start 02/18/19 at 22:30 Glucagon (Glucagen) 1 mg Q15M PRN IM DECREASED GLUCOSE; Start 02/18/19 at 22:30 Glucose (Glutose) 15 gm Q15M PRN BUCCAL DECREASED GLUCOSE; Start 02/18/19 at 22:30 Acetaminophen/ Hydrocodone Bitart ([place] (5/325)) 1 tab Q4H PRN PO MODERATE PAIN LEVEL 4-6 Last administered on 02/20/19 09:52; Admin Dose 1 TAB; Start 02/18/19 at 22:30 Hydrochlorothiazide (Hydrochlorothiazide) 12.5 mg DAILY PO Last administered on 02/20/19 09:54; Admin Dose 12.5 MG; Start 02/19/19 at 09:00 Docusate Sodium (Colace) 100 mg BID PO Last administered on 02/20/19 09:53; Admin Dose 100 MG; Start 02/19/19 at 09:00 Magnesium Hydroxide (Milk Of Mag) 30 ml Q12 PRN PO CONSTIPATION; Start 02/18/19 at 22:30 Insulin Aspart (Novolog Insulin Pen) NOVOLOG *MILD* ALGORITHM WITH MEALS BEDTIME SC Last administered on 02/20/19 12:15; Admin Dose 3 UNIT; Start 02/18/19 at 23:00 Aspirin (Halfprin) 81 mg BID PO Last administered on 02/20/19 09:52; Admin Dose 81 MG; Start 02/19/19 at 09:00 Insulin Glargine (Lantus) 20 units DAILY@2000 SC Last administered on 02/19/19 21:44; Admin Dose 20 UNITS; Start 02/18/19 at 23:30 Metoclopramide HCl (Reglan) 10 mg DAILY PRN IV NAUSEA; Start 02/19/19 at 00:00 Insulin Aspart (Novolog Insulin Pen) 4 unit WITH MEALS SC Last administered on 02/20/19 12:16; Admin Dose 4 UNIT; Start 02/19/19 at 17:35 Ferrous Sulfate (Ferrous Sulfate (Ec)) 325 mg BID PO Last administered on 02/20/19 09:54; Admin Dose 325 MG; Start 02/19/19 at 21:00 Assessment/Plan Additional Assessment/Plan Rehab- Other orthopedic injury with severe osteoarthritis, status post right total hip arthroplasty. Continue current rehab program Acute pain syndrome. Hypertension. Diabetes mellitus. Hyperlipidemia. Gastroesophageal reflux disease. SUGAR URRUTIA MD Feb 20, 2019 13:36
[2019-02-20 14:00] VITALS: BP 129/58; PULSE 69; RESP 18
--- NOTE | 2019-02-20 14:00 | PN ---
Date/Time of Note Date/Time of Note DATE: 02/20/19 TIME: 13:57 Assessment/Plan VTE Prophylaxis Risk score (from Ns)>0 risk: 9 SCD applied (from [facility]): No SCD contraindicated: low risk/ambulating Pharmacological prophylaxis: other Pharm contraindication: other (asa/plavix) Lines/Catheters IV Catheter Type (from [facility]): [place] Assessment/Plan Hospital Course SUBJECTIVE: No acute episodes. Participating with physical therapy. OBJECTIVE: Vital signs-see below PHYSICAL EXAM: Constitutional: Adequately built,not in acute distress. HEENT: Head atraumatic and normocephalic. Eyes: Extraocular muscles intact. Anicteric sclerae. Pupils equal bilaterally, reactive to light. NECK: Supple without lymph node. CHEST: Clear and good breath sounds equally. No wheezing. No rhonchi. HEART: S1, S2. Regular rate and rhythm. ABDOMEN: Soft/non tender with no rebound tenderness. Bowel sounds were present. EXTREMITIES: left hip dressing c/d/i. Mild swelling around the site-no ecchymosis/bruising/hematoma. No cyanosis, clubbing or edema. NEUROLOGIC: Alert and oriented x3. No focal deficit. No sensory deficit. PSYCHOSOCIAL: No signs of depression. INTEGUMENTARY: No open wounds. ASSESSMENT AND PLAN: Right hip osteoarthritis, status post total right hip arthroplasty -Follow-up with orthopedic surgeon in 2 weeks -Pain control, DVT prophylaxis -PT/rehab Iron deficient anemia -S/P IV Iron. Start oral iron replacement Hypertension -Continue home medications Dyslipidemia/triglyceridemia -On statin/tricor DMII -Needs more control -Basal/bolus insulin-uptitrate GERD -PPI Obesity -Weight reduction advised DVT ppx: Aspirin twice daily per orthopedics/SCDs Patient was seen in collaboration with Dr. Ordoñez Result Diagram: 02/19/19 0626 02/19/19 0626 Results 24hrs Laboratory Tests Test 02/19/19 17:21 02/19/19 21:30 02/20/19 02:22 02/20/19 07:54 Bedside Glucose 277 H 295 H 259 H 224 H Test 02/20/19 12:11 Bedside Glucose 250 H Exam/Review of Systems Exam Vitals Vital Signs Date Temp Pulse Resp B/P (MAP) Pulse Ox O2 O2 Flow FiO2 Time Delivery Rate 02/20/19 98.2 67 18 129/60 97 Room Air 07:00 (83) Intake and Output 02/19/19 02/19/19 02/20/19 1515:00 23:00 07:00 IntakeIntake Total 450 ml 220 ml 50 ml BalanceBalance 450 ml 220 ml 50 ml Results Results 24hrs Laboratory Tests Test 02/19/19 17:21 02/19/19 21:30 02/20/19 02:22 02/20/19 07:54 Bedside Glucose 277 H 295 H 259 H 224 H Test 02/20/19 12:11 Bedside Glucose 250 H Medications Medication Current Medications Senna (Senokot) 1 tab HS PO Last administered on 02/19/19 21:31; Admin Dose 1 TAB; Start 02/18/19 at 21:00 Magnesium Hydroxide (Milk Of Mag) 30 ml BID PRN PO CONSTIPATION; Start 02/18/19 at 18:00 Lactulose (Enulose) 20 gm DAILY PRN PO CONSTIPATION; Start 02/18/19 at 18:00 Bisacodyl (Dulcolax Supp) 10 mg DAILY PRN [place] CONSTIPATION Last administered on 02/20/19at 05:54; Admin Dose 10 MG; Start 02/18/19 at 18:00 Acetaminophen (Tylenol Tab) 650 mg Q4H PRN PO PAIN; Start 02/18/19 at 18:00 Miscellaneous Information [facility] This patient brumfield... PRN PRN XX WOUND CARE; Start 02/18/19 at 18:00 Amlodipine Besylate (Norvasc) 10 mg DAILY PO Last administered on 02/20/19at 09:54; Admin Dose 10 MG; Start 02/19/19 at 09:00 Atorvastatin Calcium (Lipitor) 40 mg HS PO Last administered on 02/19/19 21:31; Admin Dose 40 MG; Start 02/18/19 at 21:00 Fenofibrate (Tricor) 145 mg DAILY PO Last administered on 02/20/19 09:53; Admin Dose 145 MG; Start 02/19/19 at 09:00 Gabapentin (Neurontin) 300 mg TID PO Last administered on 02/20/19 12:18; Admin Dose 300 MG; Start 02/18/19 at 21:00 Ketorolac Tromethamine (Toradol) 15 mg Q6 PRN IV PAIN AND/OR INFLAMMATION; Start 02/18/19 at 22:00; Stop 02/21/19 at 21:59 Losartan Potassium (Cozaar) 100 mg DAILY PO Last administered on 02/20/19 09:53; Admin Dose 100 MG; Start 02/19/19 at 09:00 Pantoprazole (Protonix Tab) 40 mg DAILY@06 PO Last administered on 02/20/19 05:54; Admin Dose 40 MG; Start 02/19/19 at 06:00 Tramadol HCl (Ultram) 50 mg Q6H PRN PO MODERATE PAIN LEVEL 4-6; Start 02/18/19 at 22:00 Diagnostic Test (Pha) (Accu-Chek) 1 ea 02 XX Last administered on 02/19/19at 02:41; Admin Dose 1 EA; Start 02/19/19 at 02:00 Insulin Glargine (Lantus) 20 units DAILY@0800 SC Last administered on 02/20/19 08:06; Admin Dose 20 UNITS; Start 02/19/19 at 08:00 Miscellaneous Information 1 ea NOTE XX ; Start 02/18/19 at 22:30 Glucose (Glutose) 15 gm Q15M PRN PO DECREASED GLUCOSE; Start 02/18/19 at 22:30 Glucose (Glutose) 22.5 gm Q15M PRN PO DECREASED GLUCOSE; Start 02/18/19 at 22:30 Dextrose (D50w Syringe) 25 ml Q15M PRN IV DECREASED GLUCOSE; Start 02/18/19 at 22:30 Dextrose (D50w Syringe) 50 ml Q15M PRN IV DECREASED GLUCOSE; Start 02/18/19 at 22:30 Glucagon (Glucagen) 1 mg Q15M PRN IM DECREASED GLUCOSE; Start 02/18/19 at 22:30 Glucose (Glutose) 15 gm Q15M PRN BUCCAL DECREASED GLUCOSE; Start 02/18/19 at 22:30 Acetaminophen/ Hydrocodone Bitart ([place] (5/325)) 1 tab Q4H PRN PO MODERATE PAIN LEVEL 4-6 Last administered on 02/20/19 09:52; Admin Dose 1 TAB; Start 02/18/19 at 22:30 Hydrochlorothiazide (Hydrochlorothiazide) 12.5 mg DAILY PO Last administered on 02/20/19 09:54; Admin Dose 12.5 MG; Start 02/19/19 at 09:00 Docusate Sodium (Colace) 100 mg BID PO Last administered on 02/20/19 09:53; Admin Dose 100 MG; Start 02/19/19 at 09:00 Magnesium Hydroxide (Milk Of Mag) 30 ml Q12 PRN PO CONSTIPATION; Start 02/18/19 at 22:30 Insulin Aspart (Novolog Insulin Pen) NOVOLOG *MILD* ALGORITHM WITH MEALS BEDTIME SC Last administered on 02/20/19 12:15; Admin Dose 3 UNIT; Start 02/18/19 at 23:00 Aspirin (Halfprin) 81 mg BID PO Last administered on 02/20/19 09:52; Admin Dose 81 MG; Start 02/19/19 at 09:00 Insulin Glargine (Lantus) 20 units DAILY@2000 SC Last administered on 02/19/19 21:44; Admin Dose 20 UNITS; Start 02/18/19 at 23:30 Metoclopramide HCl (Reglan) 10 mg DAILY PRN IV NAUSEA; Start 02/19/19 at 00:00 Insulin Aspart (Novolog Insulin Pen) 4 unit WITH MEALS SC Last administered on 02/20/19 12:16; Admin Dose 4 UNIT; Start 02/19/19 at 17:35 Ferrous Sulfate (Ferrous Sulfate (Ec)) 325 mg BID PO Last administered on 02/20/19 09:54; Admin Dose 325 MG; Start 02/19/19 at 21:00 RENATA KATE NP Feb 20, 2019 14:00
[2019-02-20] MEDS ORDERED: INSULIN GLARGINE [LANTus] (100 UNITS/ML) SYG SC ONE (20:00)
[2019-02-20] MEDS: ATORVASTATIN 40 MG TAB PO SCH (20:53)
[2019-02-20] MEDS: SENNA TAB PO SCH (20:57)
[2019-02-20 22:25] VITALS: BP 113/75; PULSE 67; RESP 18
[2019-02-21] MEDS: HYDROCODONE/APAP (5/325) TAB PO PRN ×2 (00:37→19:49)
[2019-02-21] MEDS: ACCU-CHEK XX SCH (02:00)
[2019-02-21 04:14] VITALS: BP 114/70; PULSE 65; RESP 18
[2019-02-21] MEDS: PANTOPRAZOLE (EC) 40 MG TAB PO SCH (06:38)
[2019-02-21 07:00] VITALS: BP 108/55; PULSE 66; RESP 18
[2019-02-21] MEDS: INSULIN ASPART [NOVOLOG] 3 ML PEN SC SCH ×7 (07:35→21:00)
[2019-02-21] MEDS: INSULIN GLARGINE [LANTus] (100 UNITS/ML) SYG SC SCH (07:53)
[2019-02-21] MEDS: DOCUSATE SODIUM 100 MG CAP PO SCH ×2 (09:41→21:08)
[2019-02-21] MEDS: ASPIRIN (EC) 81 MG TAB PO SCH ×2 (09:42→21:12)
[2019-02-21] MEDS: HYDROCHLOROTHIAZIDE 12.5 MG CAP PO SCH (09:42)
[2019-02-21] MEDS: GABAPENTIN 300 MG CAP PO SCH ×3 (09:42→21:09)
[2019-02-21] MEDS: FENOFIBRATE 145 MG TAB PO SCH (09:42)
[2019-02-21] MEDS: FERROUS SULFATE (EC) 325 MG TAB PO SCH ×2 (09:42→21:09)
[2019-02-21] MEDS: AMLODIPINE 10 MG TAB PO SCH (09:43)
[2019-02-21] MEDS: LOSARTAN 50 MG TAB PO SCH (09:49)
--- NOTE | 2019-02-21 11:53 | PN ---
Date/Time of Note Date/Time of Note DATE: 02/21/19 TIME: 11:52 Subjective Pain under adequate control Objective Vital Signs Date Temp Pulse Resp B/P (MAP) Pulse Ox O2 O2 Flow FiO2 Time Delivery Rate 02/21/19 98.0 66 18 108/55 95 Room Air 07:00 (72) Intake and Output 02/20/19 02/20/19 02/21/19 1515:00 23:00 07:00 IntakeIntake Total 1200 ml 820 ml OutputOutput Total 600 ml BalanceBalance 600 ml 820 ml Exam pulm-cta min assist 50 feet Results/Medications Result Diagram: 02/19/19 0602/19/19 06 Results 24 hrs Laboratory Tests Test 02/20/19 12:11 02/20/19 17:27 02/20/19 20:49 02/21/19 06:57 Bedside Glucose 250 H 164 175 122 Test 02/21/19 07:49 Bedside Glucose 122 Medications Current Medications Senna (Senokot) 1 tab HS PO Last administered on 02/19/19at 21:31; Admin Dose 1 TAB; Start 02/18/19 at 21:00 Magnesium Hydroxide (Milk Of Mag) 30 ml BID PRN PO CONSTIPATION; Start 02/18/19 at 18:00 Lactulose (Enulose) 20 gm DAILY PRN PO CONSTIPATION; Start 02/18/19 at 18:00 Bisacodyl (Dulcolax Supp) 10 mg DAILY PRN [place] CONSTIPATION Last administered on 02/20/19at 05:54; Admin Dose 10 MG; Start 02/18/19 at 18:00 Acetaminophen (Tylenol Tab) 650 mg Q4H PRN PO PAIN; Start 02/18/19 at 18:00 [facility] This patient brumfield... PRN PRN XX WOUND CARE; Start 02/18/19 at 18:00 Amlodipine Besylate (Norvasc) 10 mg DAILY PO Last administered on 02/21/19at 09:43; Admin Dose 10 MG; Start 02/19/19 at 09:00 Atorvastatin Calcium (Lipitor) 40 mg HS PO Last administered on 02/20/19at 20:53; Admin Dose 40 MG; Start 02/18/19 at 21:00 Fenofibrate (Tricor) 145 mg DAILY PO Last administered on 02/21/19at 09:42; Admin Dose 145 MG; Start 02/19/19 at 09:00 Gabapentin (Neurontin) 300 mg TID PO Last administered on 02/21/19at 09:42; Admin Dose 300 MG; Start 02/18/19 at 21:00 Ketorolac Tromethamine (Toradol) 15 mg Q6 PRN IV PAIN AND/OR INFLAMMATION; Start 02/18/19 at 22:00; Stop 02/21/19 at 21:59 Losartan Potassium (Cozaar) 100 mg DAILY PO Last administered on 02/21/19at 09 :49; Admin Dose 100 MG; Start 02/19/19 at 09:00 Pantoprazole (Protonix Tab) 40 mg DAILY@06 PO Last administered on 02/21/19at 06:38; Admin Dose 40 MG; Start 02/19/19 at 06:00 Tramadol HCl (Ultram) 50 mg Q6H PRN PO MODERATE PAIN LEVEL 4-6; Start 02/18/19 at 22:00 Diagnostic Test (Pha) (Accu-Chek) 1 ea 02 XX Last administered on 02/19/19at 02:41; Admin Dose 1 EA; Start 02/19/19 at 02:00 Miscellaneous Information 1 ea NOTE XX ; Start 02/18/19 at 22:30 Glucose (Glutose) 15 gm Q15M PRN PO DECREASED GLUCOSE; Start 02/18/19 at 22:30 Glucose (Glutose) 22.5 gm Q15M PRN PO DECREASED GLUCOSE; Start 02/18/19 at 22:30 Dextrose (D50w Syringe) 25 ml Q15M PRN IV DECREASED GLUCOSE; Start 02/18/19 at 22:30 Dextrose (D50w Syringe) 50 ml Q15M PRN IV DECREASED GLUCOSE; Start 02/18/19 at 22:30 Glucagon (Glucagen) 1 mg Q15M PRN IM DECREASED GLUCOSE; Start 02/18/19 at 22:30 Glucose (Glutose) 15 gm Q15M PRN BUCCAL DECREASED GLUCOSE; Start 02/18/19 at 22:30 Acetaminophen/ Hydrocodone Bitart ([place] (5/325)) 1 tab Q4H PRN PO MODERATE PAIN LEVEL 4-6 Last administered on 02/21/19at 00:37; Admin Dose 1 TAB; Start 02/18/19 at 22:30 Hydrochlorothiazide (Hydrochlorothiazide) 12.5 mg DAILY PO Last administered on 02/21/19 09:42; Admin Dose 12.5 MG; Start 02/19/19 at 09:00 Docusate Sodium (Colace) 100 mg BID PO Last administered on 02/21/19 09:41; Admin Dose 100 MG; Start 02/19/19 at 09:00 Magnesium Hydroxide (Milk Of Mag) 30 ml Q12 PRN PO CONSTIPATION; Start 02/18/19 at 22:30 Insulin Aspart (Novolog Insulin Pen) NOVOLOG *MILD* ALGORITHM WITH MEALS BEDTIME SC Last administered on 02/20/19 17:31; Admin Dose 1 UNIT; Start 02/18/19 at 23:00 Aspirin (Halfprin) 81 mg BID PO Last administered on 02/21/19 09:42; Admin Dose 81 MG; Start 02/19/19 at 09:00 Metoclopramide HCl (Reglan) 10 mg DAILY PRN IV NAUSEA; Start 02/19/19 at 00:00 Ferrous Sulfate (Ferrous Sulfate (Ec)) 325 mg BID PO Last administered on 02/21/19 09:42; Admin Dose 325 MG; Start 02/19/19 at 21:00 Insulin Aspart (Novolog Insulin Pen) 10 unit WITH MEALS SC Last administered on 02/21/19 07:53; Admin Dose 10 UNIT; Start 02/20/19 at 17:35 Insulin Glargine (Lantus) 30 units DAILY@0800 SC Last administered on 02/21/19 07:53; Admin Dose 30 UNITS; Start 02/21/19 at 08:00 Assessment/Plan Additional Assessment/Plan Rehab- Other orthopedic injury with severe osteoarthritis, status post right total hip arthroplasty. Continue rehab activities Acute pain syndrome. Hypertension. Diabetes mellitus. Hyperlipidemia. Gastroesophageal reflux disease. SUGAR URRUTIA MD Feb 21, 2019 11:53
--- NOTE | 2019-02-21 12:28 | PN ---
Date/Time of Note Date/Time of Note DATE: 02/21/19 TIME: 12:27 Assessment/Plan VTE Prophylaxis Risk score (from Ns)>0 risk: 8 SCD applied (from Ns): No SCD contraindicated: low risk/ambulating Pharmacological prophylaxis: other (asa bid) Lines/Catheters IV C[facility] Type (from [facility] [place] Assessment/Plan Hospital Course SUBJECTIVE: No acute episodes. Participating with physical therapy. OBJECTIVE: Vital signs-see below PHYSICAL EXAM: Constitutional: Adequately built,not in acute distress. HEENT: Head atraumatic and normocephalic. Eyes: Extraocular muscles intact. Ani cteric sclerae. Pupils equal bilaterally, reactive to light. NECK: Supple without lymph node. CHEST: Clear and good breath sounds equally. No wheezing. No rhonchi. HEART: S1, S2. Regular rate and rhythm. ABDOMEN: Soft/non tender with no rebound tenderness. Bowel sounds were present. EXTREMITIES: left hip dressing c/d/i. Mild swelling around the site-no ecchymosis/bruising/hematoma. No cyanosis, clubbing or edema. NEUROLOGIC: Alert and oriented x3. No focal deficit. No sensory deficit. PSYCHOSOCIAL: No signs of depression. INTEGUMENTARY: No open wounds. ASSESSMENT AND PLAN: Right hip osteoarthritis, status post total right hip arthroplasty -Follow-up with orthopedic surgeon in 2 weeks -Pain control, DVT prophylaxis -PT/rehab Iron deficient anemia -S/P IV Iron. Start oral iron replacement Hypertension -Continue home medications Dyslipidemia/triglyceridemia -On statin/tricor DMII -now stable -cont.basal/bolus GERD -PPI Obesity -Weight reduction advised DVT ppx: Aspirin twice daily per orthopedics/SCDs Patient was seen in collaboration with Dr. Ordoñez Result Diagram: 02/19/19 0602/19/19 0626 Results 24hrs Laboratory Tests Test 02/20/19 17:27 02/20/19 20:49 02/21/19 06:57 02/21/19 07:49 Bedside Glucose 164 175 122 122 Test 02/21/19 12:17 Bedside Glucose 127 Exam/Review of Systems Exam Vitals Vital Signs Date Temp Pulse Resp B/P (MAP) Pulse Ox O2 O2 Flow FiO2 Time Delivery Rate 02/21/19 98.0 66 18 108/55 95 Room Air 07:00 (72) Intake and Output 02/20/19 02/20/19 02/21/19 1515:00 23:00 07:00 IntakeIntake Total 1200 ml 820 ml OutputOutput Total 600 ml BalanceBalance 600 ml 820 ml Results Results 24hrs Laboratory Tests Test 02/20/19 17:27 02/20/19 20:49 02/21/19 06:57 02/21/19 07:49 Bedside Glucose 164 175 122 122 Test 02/21/19 12:17 Bedside Glucose 127 Medications Medication Current Medications Senna (Senokot) 1 tab HS PO Last administered on 02/19/19 21:31; Admin Dose 1 TAB; Start 02/18/19 at 21:00 Magnesium Hydroxide (Milk Of Mag) 30 ml BID PRN PO CONSTIPATION; Start 02/18/19 at 18:00 Lactulose (Enulose) 20 gm DAILY PRN PO CONSTIPATION; Start 02/18/19 at 18:00 Bisacodyl (Dulcolax Supp) 10 mg DAILY PRN [place] CONSTIPATION Last administered on 02/20/19at 05:54; Admin Dose 10 MG; Start 02/18/19 at 18:00 Acetaminophen (Tylenol Tab) 650 mg Q4H PRN PO PAIN; Start 02/18/19 at 18:00 Miscellaneous Information (Pending [facility] Order For Wound Care) This patient brumfield... PRN PRN XX WOUND CARE; Start 02/18/19 at 18:00 Amlodipine Besylate (Norvasc) 10 mg DAILY PO Last administered on 02/21/19at 09:43; Admin Dose 10 MG; Start 02/19/19 at 09:00 Atorvastatin Calcium (Lipitor) 40 mg HS PO Last administered on 02/20/19at 20:53; Admin Dose 40 MG; Start 02/18/19 at 21:00 Fenofibrate (Tricor) 145 mg DAILY PO Last administered on 02/21/19at 09:42; Admin Dose 145 MG; Start 02/19/19 at 09:00 Gabapentin (Neurontin) 300 mg TID PO Last administered on 02/21/19at 09:42; Admin Dose 300 MG; Start 02/18/19 at 21:00 Ketorolac Tromethamine (Toradol) 15 mg Q6 PRN IV PAIN AND/OR INFLAMMATION; Start 02/18/19 at 22:00; Stop 02/21/19 at 21:59 Losartan Potassium (Cozaar) 100 mg DAILY PO Last administered on 02/21/19at 09:49; Admin Dose 100 MG; Start 02/19/19 at 09:00 Pantoprazole (Protonix Tab) 40 mg DAILY@06 PO Last administered on 02/21/19at 06:38; Admin Dose 40 MG; Start 02/19/19 at 06:00 Tramadol HCl (Ultram) 50 mg Q6H PRN PO MODERATE PAIN LEVEL 4-6; Start 02/18/19 at 22:00 Diagnostic Test (Pha) (Accu-Chek) 1 ea 02 XX Last administered on 02/19/19at 0 2:41; Admin Dose 1 EA; Start 02/19/19 at 02:00 Miscellaneous Information 1 ea NOTE XX ; Start 02/18/19 at 22:30 Glucose (Glutose) 15 gm Q15M PRN PO DECREASED GLUCOSE; Start 02/18/19 at 22:30 Glucose (Glutose) 22.5 gm Q15M PRN PO DECREASED GLUCOSE; Start 02/18/19 at 22:30 Dextrose (D50w Syringe) 25 ml Q15M PRN IV DECREASED GLUCOSE; Start 02/18/19 at 22:30 Dextrose (D50w Syringe) 50 ml Q15M PRN IV DECREASED GLUCOSE; Start 02/18/19 at 22:30 Glucagon (Glucagen) 1 mg Q15M PRN IM DECREASED GLUCOSE; Start 02/18/19 at 22:30 Glucose (Glutose) 15 gm Q15M PRN BUCCAL DECREASED GLUCOSE; Start 02/18/19 at 22:30 Acetaminophen/ Hydrocodone Bitart ([place] (5/325)) 1 tab Q4H PRN PO MODERATE PAIN LEVEL 4-6 Last administered on 02/21/19at 00:37; Admin Dose 1 TAB; Start 02/18/19 at 22:30 Hydrochlorothiazide (Hydrochlorothiazide) 12.5 mg DAILY PO Last administered on 02/21/19at 09:42; Admin Dose 12.5 MG; Start 02/19/19 at 09:00 Docusate Sodium (Colace) 100 mg BID PO Last administered on 02/21/19at 09:41; Admin Dose 100 MG; Start 02/19/19 at 09:00 Magnesium Hydroxide (Milk Of Mag) 30 ml Q12 PRN PO CONSTIPATION; Start 02/18/19 at 22:30 Insulin Aspart (Novolog Insulin Pen) NOVOLOG *MILD* ALGORITHM WITH MEALS BEDTIME SC Last administered on 02/20/19 17:31; Admin Dose 1 UNIT; Start 02/18/19 at 23:00 Aspirin (Halfprin) 81 mg BID PO Last administered on 02/21/19 09:42; Admin Dose 81 MG; Start 02/19/19 at 09:00 Metoclopramide HCl (Reglan) 10 mg DAILY PRN IV NAUSEA; Start 02/19/19 at 00:00 Ferrous Sulfate (Ferrous Sulfate (Ec)) 325 mg BID PO Last administered on 02/21/19 09:42; Admin Dose 325 MG; Start 02/19/19 at 21:00 Insulin Aspart (Novolog Insulin Pen) 10 unit WITH MEALS SC Last administered on 02/21/19 12:21; Admin Dose 10 UNIT; Start 02/20/19 at 17:35 Insulin Glargine (Lantus) 30 units DAILY@0800 SC Last administered on 02/21/19at 07:53; Admin Dose 30 UNITS; Start 02/21/19 at 08:00 RENATA KATE NP Feb 21, 2019 12:28
[2019-02-21 14:00] VITALS: BP 110/54; PULSE 69; RESP 18
[2019-02-21 20:00] VITALS: BP 122/68; PULSE 75; RESP 18
[2019-02-21] MEDS: SENNA TAB PO SCH (21:08)
[2019-02-21] MEDS: ATORVASTATIN 40 MG TAB PO SCH (21:09)
[2019-02-22 02:00] VITALS: BP 118/65; PULSE 82; RESP 18
[2019-02-22] MEDS: ACCU-CHEK XX SCH (02:00)
[2019-02-22] MEDS: PANTOPRAZOLE (EC) 40 MG TAB PO SCH (06:27)
[2019-02-22 07:30] VITALS: BP 117/56; PULSE 67; RESP 18
[2019-02-22] MEDS: INSULIN ASPART [NOVOLOG] 3 ML PEN SC SCH ×7 (08:14→20:18)
[2019-02-22] MEDS: INSULIN GLARGINE [LANTus] (100 UNITS/ML) SYG SC SCH (08:17)
[2019-02-22] MEDS: AMLODIPINE 10 MG TAB PO SCH (08:18)
[2019-02-22] MEDS: FERROUS SULFATE (EC) 325 MG TAB PO SCH ×2 (08:18→20:18)
[2019-02-22] MEDS: HYDROCODONE/APAP (5/325) TAB PO PRN ×2 (08:18→22:28)
[2019-02-22] MEDS: GABAPENTIN 300 MG CAP PO SCH ×3 (08:18→20:18)
[2019-02-22] MEDS: HYDROCHLOROTHIAZIDE 12.5 MG CAP PO SCH (08:19)
[2019-02-22] MEDS: FENOFIBRATE 145 MG TAB PO SCH (08:19)
[2019-02-22] MEDS: ASPIRIN (EC) 81 MG TAB PO SCH ×2 (08:19→20:18)
[2019-02-22] MEDS: LOSARTAN 50 MG TAB PO SCH (08:19)
[2019-02-22] MEDS: DOCUSATE SODIUM 100 MG CAP PO SCH ×2 (08:19→20:18)
--- NOTE | 2019-02-22 09:12 | PN ---
Date/Time of Note Date/Time of Note DATE: 02/22/19 TIME: 09:12 Objective Vital Signs Date Temp Pulse Resp B/P (MAP) Pulse Ox O2 O2 Flow FiO2 Time Delivery Rate 02/22/19 98.0 82 18 118/65 95 Room Air 02:00 (82) Intake and Output 02/21/19 02/21/19 02/22/19 1515:00 23:00 07:00 IntakeIntake Total 1200 ml 300 ml OutputOutput Total 600 ml BalanceBalance 600 ml 300 ml Exam INTERDISCIPLINARY TEAM CONFERENCE Attended by PT, OT, ST, Etcher Enameling, Social Work, Rehabilitation Nursing, Senior Research Analyst and Industrial Safety And Health TechnicianParlor Chaperone Exam: Pulm-cta Abd-soft BOWEL- Cont BLADDER-Cont SKIN- improving OT- DRESSING-sba/mod BATHING-sba/mod TOILETING-mod PT- BED MOBILITY-min TRANSFERS-min AMBULATION-min 100 feet A/P- Interdisciplinary team conference held today. Please see interdisciplinary sheet. Working toward d.c. on 03/05 with post discharge follow up of physical therapy, occupational therapy. Results/Medications Result Diagram: 02/19/1962502/19/19625 Results 24 hrs Laboratory Tests Test 02/21/19 12:17 02/21/19 18:05 02/21/19 21:07 02/22/19 08:10 Bedside Glucose 127 117 89 180 Medications Current Medications Senna (Senokot) 1 tab HS PO Last administered on 02/21/19at 21:08; Admin Dose 1 TAB; Start 02/18/19 at 21:00 Magnesium Hydroxide (Milk Of Mag) 30 ml BID PRN PO CONSTIPATION; Start 02/18/19 at 18:00 Lactulose (Enulose) 20 gm DAILY PRN PO CONSTIPATION; Start 02/18/19 at 18:00 Bisacodyl (Dulcolax Supp) 10 mg DAILY PRN [place] CONSTIPATION Last administered on 02/20/19at 05:54; Admin Dose 10 MG; Start 02/18/19 at 18:00 Acetaminophen (Tylenol Tab) 650 mg Q4H PRN PO PAIN; Start 02/18/19 at 18:00 Miscellaneous Information (Pending Santyl Order For Wound Care) This patient brumfield... PRN PRN XX WOUND CARE; Start 02/18/19 at 18:00 Amlodipine Besylate (Norvasc) 10 mg DAILY PO Last administered on 02/22/19at 08:18; Admin Dose 10 MG; Start 02/19/19 at 09:00 Atorvastatin Calcium (Lipitor) 40 mg HS PO Last administered on 02/21/19at 21:09; Admin Dose 40 MG; Start 02/18/19 at 21:00 Fenofibrate (Tricor) 145 mg DAILY PO Last administered on 02/22/19 08:19; Admin Dose 145 MG; Start 02/19/19 at 09:00 Gabapentin (Neurontin) 300 mg TID PO Last administered on 02/22/19at 08:18; Admin Dose 300 MG; Start 02/18/19 at 21:00 Losartan Potassium (Cozaar) 100 mg DAILY PO Last administered on 02/22/19 08:19; Admin Dose 100 MG; Start 02/19/19 at 09:00 Pantoprazole (Protonix Tab) 40 mg DAILY@06 PO Last administered on 02/22/19at 06:27; Admin Dose 40 MG; Start 02/19/19 at 06:00 Tramadol HCl (Ultram) 50 mg Q6H PRN PO MODERATE PAIN LEVEL 4-6; Start 02/18/19 at 22:00 Diagnostic Test (Pha) (Accu-Chek) 1 ea 02 XX Last administered on 02/19/19at 02:41; Admin Dose 1 EA; Start 02/19/19 at 02:00 Miscellaneous Information 1 ea NOTE XX ; Start 02/18/19 at 22:30 Glucose (Glutose) 15 gm Q15M PRN PO DECREASED GLUCOSE; Start 02/18/19 at 22:30 Glucose (Glutose) 22.5 gm Q15M PRN PO DECREASED GLUCOSE; Start 02/18/19 at 22:30 Dextrose (D50w Syringe) 25 ml Q15M PRN IV DECREASED GLUCOSE; Start 02/18/19 at 22:30 Dextrose (D50w Syringe) 50 ml Q15M PRN IV DECREASED GLUCOSE; Start 02/18/19 at 22:30 Glucagon (Glucagen) 1 mg Q15M PRN IM DECREASED GLUCOSE; Start 02/18/19 at 22:30 Glucose (Glutose) 15 gm Q15M PRN BUCCAL DECREASED GLUCOSE; Start 02/18/19 at 22:30 Acetaminophen/ Hydrocodone Bitart ([place] (5/325)) 1 tab Q4H PRN PO MODERATE PAIN LEVEL 4-6 Last administered on 02/22/19 08:18; Admin Dose 1 TAB; Start 02/18/19 at 22:30 Hydrochlorothiazide (Hydrochlorothiazide) 12.5 mg DAILY PO Last administered on 02/22/19 08:19; Admin Dose 12.5 MG; Start 02/19/19 at 09:00 Docusate Sodium (Colace) 100 mg BID PO Last administered on 02/22/19 08:19; Admin Dose 100 MG; Start 02/19/19 at 09:00 Magnesium Hydroxide (Milk Of Mag) 30 ml Q12 PRN PO CONSTIPATION; Start 02/18/19 at 22:30 Insulin Aspart (Novolog Insulin Pen) NOVOLOG *MILD* ALGORITHM WITH MEALS BEDTIME SC Last administered on 02/22/19 08:14; Admin Dose 1 UNIT; Start 02/18/19 at 23:00 Aspirin (Halfprin) 81 mg BID PO Last administered on 02/22/19 08:19; Admin Dose 81 MG; Start 02/19/19 at 09:00 Metoclopramide HCl (Reglan) 10 mg DAILY PRN IV NAUSEA; Start 02/19/19 at 00:00 Ferrous Sulfate (Ferrous Sulfate (Ec)) 325 mg BID PO Last administered on 02/22/19 08:18; Admin Dose 325 MG; Start 02/19/19 at 21:00 Insulin Aspart (Novolog Insulin Pen) 10 unit WITH MEALS SC Last administered on 02/22/19 08:16; Admin Dose 10 UNIT; Start 02/20/19 at 17:35 Insulin Glargine (Lantus) 30 units DAILY@0800 SC Last administered on 02/22/19 08:17; Admin Dose 30 UNITS; Start 02/21/19 at 08:00 SUGAR URRUTIA MD Feb 22, 2019 09:12
--- NOTE | 2019-02-22 13:51 | PN ---
Date/Time of Note Date/Time of Note DATE: 02/22/19 TIME: 13:49 Assessment/Plan VTE Prophylaxis Risk score (from Ns)>0 risk: 10 SCD applied (from Ns): No SCD contraindicated: other Pharmacological prophylaxis: other (asa twice daily) Pharm contraindication: low risk/ambulating Lines/Catheters IV [facility]from [facility] Saline Lock Assessment/Plan Hospital Course SUBJECTIVE: No acute episodes. Participating with physical therapy. OBJECTIVE: Vital signs-see below PHYSICAL EXAM: Constitutional: Adequately built,not in acute distress. HEENT: Head atraumatic and normocephalic. Eyes: Extraocular muscles intact. Anicteric sclerae. Pupils equal bilaterally, reactive to light. NECK: Supple without lymph node. CHEST: Clear and good breath sounds equally. No wheezing. No rhonchi. HEART: S1, S2. Regular rate and rhythm. ABDOMEN: Soft/non tender with no rebound tenderness. Bowel sounds were present. EXTREMITIES: left hip dressing c/d/i. Mild swelling around the site-no ecchymosis/bruising/hematoma. No cyanosis, clubbing or edema. NEUROLOGIC: Alert and oriented x3. No focal deficit. No sensory deficit. PSYCHOSOCIAL: No signs of depression. INTEGUMENTARY: No open wounds. ASSESSMENT AND PLAN: Right hip osteoarthritis, status post total right hip arthroplasty -Follow-up with orthopedic surgeon in 2 weeks -Pain control, DVT prophylaxis -PT/rehab Iron deficient anemia -cont iron sup Hypertension -Continue home medications Dyslipidemia/triglyceridemia -On statin/tricor DMII -now stable -cont.basal/bolus GERD -PPI Obesity -Weight reduction advised DVT ppx: Aspirin twice daily per orthopedics/SCDs Patient was seen in collaboration with Dr. Ordoñez Result Diagram: 02/19/19 0626 02/19/19 0626 Results 24hrs Laboratory Tests Test 02/21/19 18:05 02/21/19 21:07 02/22/19 08:10 02/22/19 12:04 Bedside Glucose 117 89 180 251 H Exam/Review of Systems Exam Vitals Vital Signs Date Temp Pulse Resp B/P (MAP) Pulse Ox O2 O2 Flow FiO2 Time Delivery Rate 02/22/19 98.0 82 18 118/65 95 Room Air 02:00 (82) Intake and Output 02/21/19 02/21/19 02/22/19 1515:00 23:00 07:00 IntakeIntake Total 1200 ml 300 ml OutputOutput Total 600 ml BalanceBalance 600 ml 300 ml Results Results 24hrs Laboratory Tests Test 02/21/19 18:05 02/21/19 21:07 02/22/19 08:10 02/22/19 12:04 Bedside Glucose 117 89 180 251 H Medications Medication Current Medications Senna (Senokot) 1 tab HS PO Last administered on 02/21/19 21:08; Admin Dose 1 TAB; Start 02/18/19 at 21:00 Magnesium Hydroxide (Milk Of Mag) 30 ml BID PRN PO CONSTIPATION; Start 02/18/19 at 18:00 Lactulose (Enulose) 20 gm DAILY PRN PO CONSTIPATION; Start 02/18/19 at 18:00 Bisacodyl (Dulcolax Supp) 10 mg DAILY PRN [place] CONSTIPATION Last administered on 02/20/19 05:54; Admin Dose 10 MG; Start 02/18/19 at 18:00 Acetaminophen (Tylenol Tab) 650 mg Q4H PRN PO PAIN; Start 02/18/19 at 18:00 Miscellaneous Information (Pending Santyl Order For Wound Care) This patient brumfield... PRN PRN XX WOUND CARE; Start 02/18/19 at 18:00 Amlodipine Besylate (Norvasc) 10 mg DAILY PO Last administered on 02/22/19 08:18; Admin Dose 10 MG; Start 02/19/19 at 09:00 Atorvastatin Calcium (Lipitor) 40 mg HS PO Last administered on 02/21/19 21:09; Admin Dose 40 MG; Start 02/18/19 at 21:00 Fenofibrate (Tricor) 145 mg DAILY PO Last administered on 02/22/19 08:19; Admin Dose 145 MG; Start 02/19/19 at 09:00 Gabapentin (Neurontin) 300 mg TID PO Last administered on 02/22/19 12:10; Admin Dose 300 MG; Start 02/18/19 at 21:00 Losartan Potassium (Cozaar) 100 mg DAILY PO Last administered on 02/22/19 08:19; Admin Dose 100 MG; Start 02/19/19 at 09:00 Pantoprazole (Protonix Tab) 40 mg DAILY@06 PO Last administered on 6/27/19at 06:27; Admin Dose 40 MG; Start 02/19/19 at 06:00 Tramadol HCl (Ultram) 50 mg Q6H PRN PO MODERATE PAIN LEVEL 4-6; Start 02/18/19 at 22:00 Diagnostic Test (Pha) (Accu-Chek) 1 ea 02 XX Last administered on 02/19/19at 0 2:41; Admin Dose 1 EA; Start 02/19/19 at 02:00 Miscellaneous Information 1 ea NOTE XX ; Start 02/18/19 at 22:30 Glucose (Glutose) 15 gm Q15M PRN PO DECREASED GLUCOSE; Start 02/18/19 at 22:30 Glucose (Glutose) 22.5 gm Q15M PRN PO DECREASED GLUCOSE; Start 02/18/19 at 22:30 Dextrose (D50w Syringe) 25 ml Q15M PRN IV DECREASED GLUCOSE; Start 02/18/19 at 22:30 Dextrose (D50w Syringe) 50 ml Q15M PRN IV DECREASED GLUCOSE; Start 02/18/19 at 22:30 Glucagon (Glucagen) 1 mg Q15M PRN IM DECREASED GLUCOSE; Start 02/18/19 at 22:30 Glucose (Glutose) 15 gm Q15M PRN BUCCAL DECREASED GLUCOSE; Start 02/18/19 at 22:30 Acetaminophen/ Hydrocodone Bitart ([place] (5/325)) 1 tab Q4H PRN PO MODERATE PAIN LEVEL 4-6 Last administered on 02/22/19at 08:18; Admin Dose 1 TAB; Start 02/18/19 at 22:30 Hydrochlorothiazide (Hydrochlorothiazide) 12.5 mg DAILY PO Last administered on 02/22/19at 08:19; Admin Dose 12.5 MG; Start 02/19/19 at 09:00 Docusate Sodium (Colace) 100 mg BID PO Last administered on 02/22/19at 08:19; Admin Dose 100 MG; Start 02/19/19 at 09:00 Magnesium Hydroxide (Milk Of Mag) 30 ml Q12 PRN PO CONSTIPATION; Start 02/18/19 at 22:30 Insulin Aspart (Novolog Insulin Pen) NOVOLOG *MILD* ALGORITHM WITH MEALS BEDTIME SC Last administered on 02/22/19at 12:11; Admin Dose 3 UNIT; Start 02/18/19 at 23:00 Aspirin (Halfprin) 81 mg BID PO Last administered on 02/22/19 08:19; Admin Dose 81 MG; Start 02/19/19 at 09:00 Metoclopramide HCl (Reglan) 10 mg DAILY PRN IV NAUSEA; Start 02/19/19 at 00:00 Ferrous Sulfate (Ferrous Sulfate (Ec)) 325 mg BID PO Last administered on 02/22/19at 08:18; Admin Dose 325 MG; Start 02/19/19 at 21:00 Insulin Aspart (Novolog Insulin Pen) 10 unit WITH MEALS SC Last administered on 02/22/19at 12:12; Admin Dose 10 UNIT; Start 02/20/19 at 17:35 Insulin Glargine (Lantus) 30 units DAILY@0800 SC Last administered on 02/22/19 08:17; Admin Dose 30 UNITS; Start 02/21/19 at 08:00 RENATA KATE NP Feb 22, 2019 13:51
[2019-02-22 14:00] VITALS: BP 141/56; PULSE 72; RESP 18
[2019-02-22 19:50] VITALS: BP 132/65; PULSE 76; RESP 18
[2019-02-22] MEDS: ATORVASTATIN 40 MG TAB PO SCH (20:18)
[2019-02-22] MEDS: SENNA TAB PO SCH (20:18)
[2019-02-23] MEDS: ACCU-CHEK XX SCH (02:00)
[2019-02-23 03:00] VITALS: BP 125/61; PULSE 68; RESP 18
[2019-02-23] MEDS: HYDROCODONE/APAP (5/325) TAB PO PRN (06:21)
[2019-02-23] MEDS: PANTOPRAZOLE (EC) 40 MG TAB PO SCH (06:21)
[2019-02-23] MEDS: INSULIN ASPART [NOVOLOG] 3 ML PEN SC SCH ×7 (07:33→20:49)
[2019-02-23] MEDS: INSULIN GLARGINE [LANTus] (100 UNITS/ML) SYG SC SCH (07:35)
[2019-02-23 08:27] VITALS: BP 131/60; PULSE 60; RESP 18
[2019-02-23] MEDS: AMLODIPINE 10 MG TAB PO SCH (08:58)
[2019-02-23] MEDS: HYDROCHLOROTHIAZIDE 12.5 MG CAP PO SCH (08:58)
[2019-02-23] MEDS: ASPIRIN (EC) 81 MG TAB PO SCH ×2 (08:59→20:45)
[2019-02-23] MEDS: DOCUSATE SODIUM 100 MG CAP PO SCH ×2 (08:59→20:45)
[2019-02-23] MEDS: LOSARTAN 50 MG TAB PO SCH (08:59)
[2019-02-23] MEDS: GABAPENTIN 300 MG CAP PO SCH ×3 (08:59→20:45)
[2019-02-23] MEDS: FENOFIBRATE 145 MG TAB PO SCH (08:59)
[2019-02-23] MEDS: FERROUS SULFATE (EC) 325 MG TAB PO SCH ×2 (08:59→20:45)
--- NOTE | 2019-02-23 12:25 | PN ---
Date/Time of Note Date/Time of Note DATE: 02/23/19 TIME: 12:22 Assessment/Plan VTE Prophylaxis Risk score (from Ns)>0 risk: 12 SCD applied (from Ns): No SCD contraindicated: other Pharmacological prophylaxis: other (asa twice) Pharm contraindication: low risk/ambulating Lines/Catheters IV [facility] (from [facility] Saline Lock Assessment/Plan Hospital Course SUBJECTIVE: No acute episodes. Participating with physical therapy. OBJECTIVE: Vital signs-see below PHYSICAL EXAM: Constitutional: Adequately built,not in acute distress. HEENT: Head atraumatic and normocephalic. Eyes: Extraocular muscles intact. Anicteric sclerae. Pupils equal bilaterally, reactive to light. NECK: Supple without lymph node. CHEST: Clear and good breath sounds equally. No wheezing. No rhonchi. HEART: S1, S2. Regular rate and rhythm. ABDOMEN: Soft/non tender with no rebound tenderness. Bowel sounds were present. EXTREMITIES: left hip dressing c/d/i. Mild swelling around the site-no ecchymosis/bruising/hematoma. No cyanosis, clubbing or edema. NEUROLOGIC: Alert and oriented x3. No focal deficit. No sensory deficit. PSYCHOSOCIAL: No signs of depression. INTEGUMENTARY: No open wounds. ASSESSMENT AND PLAN: Right hip osteoarthritis, status post total right hip arthroplasty -Follow-up with orthopedic surgeon in 2 weeks -Pain control, DVT prophylaxis -PT/rehab Iron deficient anemia -cont iron sup Hypertension -Continue home medications Dyslipidemia/triglyceridemia -On statin/tricor DMII -now stable -cont.basal/bolus GERD -PPI Obesity -Weight reduction advised DVT ppx: Aspirin twice daily per orthopedics/SCDs Patient was seen in collaboration with Dr. Ordoñez Result Diagram: 02/19/19 0602/19/19 0626 Results 24hrs Laboratory Tests Test 02/22/19 17:30 02/22/19 20:17 02/23/19 07:26 02/23/19 11:58 Bedside Glucose 133 138 196 133 Exam/Review of Systems Exam Vitals Vital Signs Date Temp Pulse Resp B/P (MAP) Pulse Ox O2 O2 Flow FiO2 Time Delivery Rate 02/23/19 98.0 60 18 131/60 95 Room Air 08:27 (83) Intake and Output 02/22/19 02/22/19 02/23/19 1515:00 23:00 07:00 IntakeIntake Total 1200 ml 960 ml BalanceBalance 1200 ml 960 ml Results Results 24hrs Laboratory Tests Test 02/22/19 17:30 02/22/19 20:17 02/23/19 07:26 02/23/19 11:58 Bedside Glucose 133 138 196 133 Medications Medication Current Medications Senna (Senokot) 1 tab HS PO Last administered on 02/22/19 20:18; Admin Dose 1 TAB; Start 02/18/19 at 21:00 Magnesium Hydroxide (Milk Of Mag) 30 ml BID PRN PO CONSTIPATION; Start 02/18/19 at 18:00 Lactulose (Enulose) 20 gm DAILY PRN PO CONSTIPATION; Start 02/18/19 at 18:00 Bisacodyl (Dulcolax Supp) 10 mg DAILY PRN [place] CONSTIPATION Last administered on 02/20/19 05:54; Admin Dose 10 MG; Start 02/18/19 at 18:00 Acetaminophen (Tylenol Tab) 650 mg Q4H PRN PO PAIN; Start 02/18/19 at 18:00 [facility] This patient brumfield... PRN PRN XX WOUND CARE; Start 02/18/19 at 18:00 Amlodipine Besylate (Norvasc) 10 mg DAILY PO Last administered on 02/23/19 08:58; Admin Dose 10 MG; Start 02/19/19 at 09:00 Atorvastatin Calcium (Lipitor) 40 mg HS PO Last administered on 02/22/19 20:18; Admin Dose 40 MG; Start 02/18/19 at 21:00 Fenofibrate (Tricor) 145 mg DAILY PO Last administered on 02/23/19 08:59; Admin Dose 145 MG; Start 02/19/19 at 09:00 Gabapentin (Neurontin) 300 mg TID PO Last administered on 02/23/19 12:04; Admin Dose 300 MG; Start 02/18/19 at 21:00 Losartan Potassium (Cozaar) 100 mg DAILY PO Last administered on 02/23/19 08:59; Admin Dose 100 MG; Start 02/19/19 at 09:00 Pantoprazole (Protonix Tab) 40 mg DAILY@06 PO Last administered on 02/23/19 06:21; Admin Dose 40 MG; Start 02/19/19 at 06:00 Tramadol HCl (Ultram) 50 mg Q6H PRN PO MODERATE PAIN LEVEL 4-6; Start 02/18/19 at 22:00 Diagnostic Test (Pha) (Accu-Chek) 1 ea 02 XX Last administered on 02/19/19at 02:41; Admin Dose 1 EA; Start 02/19/19 at 02:00 Miscellaneous Information 1 ea NOTE XX ; Start 02/18/19 at 22:30 Glucose (Glutose) 15 gm Q15M PRN PO DECREASED GLUCOSE; Start 02/18/19 at 22:30 Glucose (Glutose) 22.5 gm Q15M PRN PO DECREASED GLUCOSE; Start 02/18/19 at 22:30 Dextrose (D50w Syringe) 25 ml Q15M PRN IV DECREASED GLUCOSE; Start 02/18/19 at 22:30 Dextrose (D50w Syringe) 50 ml Q15M PRN IV DECREASED GLUCOSE; Start 02/18/19 at 22:30 Glucagon (Glucagen) 1 mg Q15M PRN IM DECREASED GLUCOSE; Start 02/18/19 at 22:30 Glucose (Glutose) 15 gm Q15M PRN BUCCAL DECREASED GLUCOSE; Start 02/18/19 at 22:30 Acetaminophen/ Hydrocodone Bitart ([place] (5/325)) 1 tab Q4H PRN PO MODERATE PAIN LEVEL 4-6 Last administered on 02/23/19at 06:21; Admin Dose 1 TAB; Start 02/18/19 at 22:30 Hydrochlorothiazide (Hydrochlorothiazide) 12.5 mg DAILY PO Last administered on 02/23/19at 08:58; Admin Dose 12.5 MG; Start 02/19/19 at 09:00 Docusate Sodium (Colace) 100 mg BID PO Last administered on 02/23/19at 08:59; Admin Dose 100 MG; Start 02/19/19 at 09:00 Magnesium Hydroxide (Milk Of Mag) 30 ml Q12 PRN PO CONSTIPATION; Start 02/18/19 at 22:30 Insulin Aspart (Novolog Insulin Pen) NOVOLOG *MILD* ALGORITHM WITH MEALS BEDTIME SC Last administered on 02/23/19at 07:34; Admin Dose 2 UNIT; Start 02/18/19 at 23:00 Aspirin (Halfprin) 81 mg BID PO Last administered on 02/23/19 08:59; Admin Dose 81 MG; Start 02/19/19 at 09:00 Metoclopramide HCl (Reglan) 10 mg DAILY PRN IV NAUSEA; Start 02/19/19 at 00:00 Ferrous Sulfate (Ferrous Sulfate (Ec)) 325 mg BID PO Last administered on 02/23/19 08:59; Admin Dose 325 MG; Start 02/19/19 at 21:00 Insulin Aspart (Novolog Insulin Pen) 10 unit WITH MEALS SC Last administered on 02/23/19 12:06; Admin Dose 10 UNIT; Start 02/20/19 at 17:35 Insulin Glargine (Lantus) 30 units DAILY@0800 SC Last administered on 02/23/19 07:35; Admin Dose 30 UNITS; Start 02/21/19 at 08:00 RENATA KATE NP Feb 23, 2019 12:25
[2019-02-23 14:00] VITALS: BP 98/52; PULSE 65; RESP 19
--- NOTE | 2019-02-23 15:43 | PN ---
Date/Time of Note Date/Time of Note DATE: 02/23/19 TIME: 15:42 Subjective Motivated for activities Objective Vital Signs Date Temp Pulse Resp B/P (MAP) Pulse Ox O2 O2 Flow FiO2 Time Delivery Rate 02/23/19 98.0 65 19 98/52 (67) 96 14:00 02/23/19 Room Air 08:27 Intake and Output 02/22/19 02/22/19 02/23/19 1515:00 23:00 07:00 IntakeIntake Total 1200 ml 960 ml BalanceBalance 1200 ml 960 ml Exam pulm-cta abd-soft min assist Results/Medications Result Diagram: 02/19/19 0602/19/19 0626 Results 24 hrs Laboratory Tests Test 02/22/19 17:30 02/22/19 20:17 02/23/19 07:26 02/23/19 11:58 Bedside Glucose 133 138 196 133 Medications Current Medications Senna (Senokot) 1 tab HS PO Last administered on 02/22/19at 20:18; Admin Dose 1 TAB; Start 02/18/19 at 21:00 Magnesium Hydroxide (Milk Of Mag) 30 ml BID PRN PO CONSTIPATION; Start 02/18/19 at 18:00 Lactulose (Enulose) 20 gm DAILY PRN PO CONSTIPATION; Start 02/18/19 at 18:00 Bisacodyl (Dulcolax Supp) 10 mg DAILY PRN [place] CONSTIPATION Last administered on 02/20/19at 05:54; Admin Dose 10 MG; Start 02/18/19 at 18:00 Acetaminophen (Tylenol Tab) 650 mg Q4H PRN PO PAIN; Start 02/18/19 at 18:00 Miscellaneous Information (Pending Santyl Order For Wound Care) This patient brumfield ... PRN PRN XX WOUND CARE; Start 02/18/19 at 18:00 Amlodipine Besylate (Norvasc) 10 mg DAILY PO Last administered on 02/23/19at 08:58; Admin Dose 10 MG; Start 02/19/19 at 09:00 Atorvastatin Calcium (Lipitor) 40 mg HS PO Last administered on 02/22/19at 20:18; Admin Dose 40 MG; Start 02/18/19 at 21:00 Fenofibrate (Tricor) 145 mg DAILY PO Last administered on 02/23/19at 08:59; Admin Dose 145 MG; Start 02/19/19 at 09:00 Gabapentin (Neurontin) 300 mg TID PO Last administered on 02/23/19at 12:04; Adm in Dose 300 MG; Start 02/18/19 at 21:00 Losartan Potassium (Cozaar) 100 mg DAILY PO Last administered on 02/23/19at 08:59; Admin Dose 100 MG; Start 02/19/19 at 09:00 Pantoprazole (Protonix Tab) 40 mg DAILY@06 PO Last administered on 02/23/19at 06:21; Admin Dose 40 MG; Start 02/19/19 at 06:00 Tramadol HCl (Ultram) 50 mg Q6H PRN PO MODERATE PAIN LEVEL 4-6; Start 02/18/19 at 22:00 Diagnostic Test (Pha) (Accu-Chek) 1 ea 02 XX Last administered on 02/19/19at 02:41; Admin Dose 1 EA; Start 02/19/19 at 02:00 Miscellaneous Information 1 ea NOTE XX ; Start 02/18/19 at 22:30 Glucose (Glutose) 15 gm Q15M PRN PO DECREASED GLUCOSE; Start 02/18/19 at 22:30 Glucose (Glutose) 22.5 gm Q15M PRN PO DECREASED GLUCOSE; Start 02/18/19 at 22:30 Dextrose (D50w Syringe) 25 ml Q15M PRN IV DECREASED GLUCOSE; Start 02/18/19 at 22:30 Dextrose (D50w Syringe) 50 ml Q15M PRN IV DECREASED GLUCOSE; Start 02/18/19 at 22:30 Glucagon (Glucagen) 1 mg Q15M PRN IM DECREASED GLUCOSE; Start 02/18/19 at 22:30 Glucose (Glutose) 15 gm Q15M PRN BUCCAL DECREASED GLUCOSE; Start 02/18/19 at 22:30 Acetaminophen/ Hydrocodone Bitart ([place] (5/325)) 1 tab Q4H PRN PO MODERATE PAIN LEVEL 4-6 Last administered on 02/23/19at 06:21; Admin Dose 1 TAB; Start 02/18/19 at 22:30 Hydrochlorothiazide (Hydrochlorothiazide) 12.5 mg DAILY PO Last administered on 02/23/19at 08:58; Admin Dose 12.5 MG; Start 02/19/19 at 09:00 Docusate Sodium (Colace) 100 mg BID PO Last administered on 02/23/19 08:59; Admin Dose 100 MG; Start 02/19/19 at 09:00 Magnesium Hydroxide (Milk Of Mag) 30 ml Q12 PRN PO CONSTIPATION; Start 02/18/19 at 22:30 Insulin Aspart (Novolog Insulin Pen) NOVOLOG *MILD* ALGORITHM WITH MEALS BEDTIME SC Last administered on 02/23/19 07:34; Admin Dose 2 UNIT; Start 02/18/19 at 23:00 Aspirin (Halfprin) 81 mg BID PO Last administered on 02/23/19 08:59; Admin Dose 81 MG; Start 02/19/19 at 09:00 Metoclopramide HCl (Reglan) 10 mg DAILY PRN IV NAUSEA; Start 02/19/19 at 00:00 Ferrous Sulfate (Ferrous Sulfate (Ec)) 325 mg BID PO Last administered on 02/23/19 08:59; Admin Dose 325 MG; Start 02/19/19 at 21:00 Insulin Aspart (Novolog Insulin Pen) 10 unit WITH MEALS SC Last administered on 02/23/19at 12:06; Admin Dose 10 UNIT; Start 02/20/19 at 17:35 Insulin Glargine (Lantus) 30 units DAILY@0800 SC Last administered on 02/23/19 07:35; Admin Dose 30 UNITS; Start 02/21/19 at 08:00 Assessment/Plan Additional Assessment/Plan Rehab- Other orthopedic injury with severe osteoarthritis, status post right total hip arthroplasty. Continue rehab, good progress Acute pain syndrome. Hypertension. Diabetes mellitus. Hyperlipidemia. Gastroesophageal reflux disease. SUGAR URRUTIA MD Feb 23, 2019 15:43
[2019-02-23 20:00] VITALS: BP 118/64; PULSE 67; RESP 18
[2019-02-23] MEDS: ATORVASTATIN 40 MG TAB PO SCH (20:45)
[2019-02-23] MEDS: SENNA TAB PO SCH (20:45)
[2019-02-23] MEDS ORDERED: ACCU-CHEK XX ONE (21:00)
[2019-02-23] MEDS ORDERED: INSULIN ASPART [NOVOLOG] 3 ML PEN SC ONE (21:00)
[2019-02-24 02:00] VITALS: BP 123/62; PULSE 62; RESP 18
[2019-02-24] MEDS: ACCU-CHEK XX SCH (02:03)
[2019-02-24] MEDS: PANTOPRAZOLE (EC) 40 MG TAB PO SCH (06:13)
[2019-02-24 07:30] VITALS: BP 118/56; PULSE 67; RESP 18
[2019-02-24] MEDS: INSULIN ASPART [NOVOLOG] 3 ML PEN SC SCH ×7 (07:46→20:47)
[2019-02-24] MEDS: INSULIN GLARGINE [LANTus] (100 UNITS/ML) SYG SC SCH (07:47)
[2019-02-24] MEDS: ASPIRIN (EC) 81 MG TAB PO SCH ×2 (09:04→20:38)
[2019-02-24] MEDS: FENOFIBRATE 145 MG TAB PO SCH (09:05)
[2019-02-24] MEDS: DOCUSATE SODIUM 100 MG CAP PO SCH ×2 (09:05→20:37)
[2019-02-24] MEDS: HYDROCHLOROTHIAZIDE 12.5 MG CAP PO SCH (09:05)
[2019-02-24] MEDS: AMLODIPINE 10 MG TAB PO SCH (09:05)
[2019-02-24] MEDS: FERROUS SULFATE (EC) 325 MG TAB PO SCH ×2 (09:05→20:38)
[2019-02-24] MEDS: LOSARTAN 50 MG TAB PO SCH (09:05)
[2019-02-24] MEDS: GABAPENTIN 300 MG CAP PO SCH ×3 (09:06→20:37)
[2019-02-24] MEDS: HYDROCODONE/APAP (5/325) TAB PO PRN (09:12)
--- NOTE | 2019-02-24 11:36 | PN ---
Date/Time of Note Date/Time of Note DATE: 02/24/19 TIME: 11:35 Subjective Motivated with therapy Objective Vital Signs Date Temp Pulse Resp B/P (MAP) Pulse Ox O2 O2 Flow FiO2 Time Delivery Rate 02/24/19 98.6 67 18 118/56 96 Room Air 07:30 (76) Intake and Output 02/23/19 02/23/19 02/24/19 1515:00 23:00 07:00 IntakeIntake Total 780 ml 550 ml BalanceBalance 780 ml 550 ml Exam cga transfer cga ambulation pulm-cta Results/Medications Results 24 hrs Laboratory Tests Test 02/23/19 11:58 02/23/19 17:17 02/23/19 20:23 02/23/19 22:54 Bedside Glucose 133 211 322 H 195 Test 02/24/19 02:00 02/24/19 07:39 Bedside Glucose 172 172 Hemoglobin A1c 6.5 H Medications Current Medications Senna (Senokot) 1 tab HS PO Last administered on 02/23/19at 20:45; Admin Dose 1 TAB; Start 02/18/19 at 21:00 Magnesium Hydroxide (Milk Of Mag) 30 ml BID PRN PO CONSTIPATION; Start 02/18/19 at 18:00 Lactulose (Enulose) 20 gm DAILY PRN PO CONSTIPATION; Start 02/18/19 at 18:00 Bisacodyl (Dulcolax Supp) 10 mg DAILY PRN [place] CONSTIPATION Last administered on 02/20/19at 05:54; Admin Dose 10 MG; Start 02/18/19 at 18:00 Acetaminophen (Tylenol Tab) 650 mg Q4H PRN PO PAIN; Start 02/18/19 at 18:00 Miscellaneous Information (Pending [facility] Order For Wound Care) This patient brumfield ... PRN PRN XX WOUND CARE; Start 02/18/19 at 18:00 Amlodipine Besylate (Norvasc) 10 mg DAILY PO Last administered on 02/24/19at 09:05; Admin Dose 10 MG; Start 02/19/19 at 09:00 Atorvastatin Calcium (Lipitor) 40 mg HS PO Last administered on 02/23/19at 20: 45; Admin Dose 40 MG; Start 02/18/19 at 21:00 Fenofibrate (Tricor) 145 mg DAILY PO Last administered on 02/24/19at 09:05; Admin Dose 145 MG; Start 02/19/19 at 09:00 Gabapentin (Neurontin) 300 mg TID PO Last administered on 02/24/19 09:06; Admin Dose 300 MG; Start 02/18/19 at 21:00 Losartan Potassium (Cozaar) 100 mg DAILY PO Last administered on 02/24/19 09:05; Admin Dose 100 MG; Start 02/19/19 at 09:00 Pantoprazole (Protonix Tab) 40 mg DAILY@06 PO Last administered on 02/24/19at 06:13; Admin Dose 40 MG; Start 02/19/19 at 06:00 Tramadol HCl (Ultram) 50 mg Q6H PRN PO MODERATE PAIN LEVEL 4-6; Start 02/18/19 at 22:00 Diagnostic Test (Pha) (Accu-Chek) 1 ea 02 XX Last administered on 02/24/19at 02:03; Admin Dose 1 EA; Start 02/19/19 at 02:00 Miscellaneous Information 1 ea NOTE XX ; Start 02/18/19 at 22:30 Glucose (Glutose) 15 gm Q15M PRN PO DECREASED GLUCOSE; Start 02/18/19 at 22:30 Glucose (Glutose) 22.5 gm Q15M PRN PO DECREASED GLUCOSE; Start 02/18/19 at 22:30 Dextrose (D50w Syringe) 25 ml Q15M PRN IV DECREASED GLUCOSE; Start 02/18/19 at 22:30 Dextrose (D50w Syringe) 50 ml Q15M PRN IV DECREASED GLUCOSE; Start 02/18/19 at 22:30 Glucagon (Glucagen) 1 mg Q15M PRN IM DECREASED GLUCOSE; Start 02/18/19 at 22:30 Glucose (Glutose) 15 gm Q15M PRN BUCCAL DECREASED GLUCOSE; Start 02/18/19 at 22:30 Acetaminophen/ Hydrocodone Bitart ([place] (5/325)) 1 tab Q4H PRN PO MODERATE PAIN LEVEL 4-6 Last administered on 02/24/19at 09:12; Admin Dose 1 TAB; Start 02/18/19 at 22:30 Hydrochlorothiazide (Hydrochlorothiazide) 12.5 mg DAILY PO Last administered on 02/24/19at 09:05; Admin Dose 12.5 MG; Start 02/19/19 at 09:00 Docusate Sodium (Colace) 100 mg BID PO Last administered on 02/24/19 09:05; Admin Dose 100 MG; Start 02/19/19 at 09:00 Magnesium Hydroxide (Milk Of Mag) 30 ml Q12 PRN PO CONSTIPATION; Start 02/18/19 at 22:30 Insulin Aspart (Novolog Insulin Pen) NOVOLOG *MILD* ALGORITHM WITH MEALS BEDTIM E SC Last administered on 02/24/19 07:46; Admin Dose 1 UNIT; Start 02/18/19 at 23:00 Aspirin (Halfprin) 81 mg BID PO Last administered on 02/24/19 09:04; Admin Dose 81 MG; Start 02/19/19 at 09:00 Metoclopramide HCl (Reglan) 10 mg DAILY PRN IV NAUSEA; Start 02/19/19 at 00:00 Ferrous Sulfate (Ferrous Sulfate (Ec)) 325 mg BID PO Last administered on 02/24/19 09:05; Admin Dose 325 MG; Start 02/19/19 at 21:00 Insulin Aspart (Novolog Insulin Pen) 10 unit WITH MEALS SC Last administered on 02/24/19 07:46; Admin Dose 10 UNIT; Start 02/20/19 at 17:35 Insulin Glargine (Lantus) 30 units DAILY@0800 SC Last administered on 02/24/19 07:47; Admin Dose 30 UNITS; Start 02/21/19 at 08:00 Assessment/Plan Additional Assessment/Plan Rehab- Other orthopedic injury with severe osteoarthritis, status post right total hip arthroplasty. good gains, continue treatment plan Acute pain syndrome. Hypertension. Diabetes mellitus. Hyperlipidemia. Gastroesophageal reflux disease. SUGAR URRUTIA MD Feb 24, 2019 11:36
--- NOTE | 2019-02-24 11:54 | PN ---
Date/Time of Note Date/Time of Note DATE: 02/24/19 TIME: 11:53 Assessment/Plan VTE Prophylaxis Risk score (from Ns)>0 risk: 12 SCD applied (from Ns): No SCD contraindicated: low risk/ambulating, patient refusal, other Pharmacological prophylaxis: other (asa twice) Lines/Catheters [facility] Saline Lock Assessment/Plan Hospital Course SUBJECTIVE: No acute episodes. Participating with physical therapy. OBJECTIVE: Vital signs-see below PHYSICAL EXAM: Constitutional: Adequately built,not in acute distress. HEENT: Head atraumatic and normocephalic. Eyes: Extraocular muscles intact. Anicteric sclerae. Pupils equal bilaterally, reactive to light. NECK: Supple without lymph node. CHEST: Clear and good breath sounds equally. No wheezing. No rhonchi. HEART: S1, S2. Regular rate and rhythm. ABDOMEN: Soft/non tender with no rebound tenderness. Bowel sounds were present. EXTREMITIES: left hip dressing c/d/i. Mild swelling around the site-no ecchymosis/bruising/hematoma. No cyanosis, clubbing or edema. NEUROLOGIC: Alert and oriented x3. No focal deficit. No sensory deficit. PSYCHOSOCIAL: No signs of depression. INTEGUMENTARY: No open wounds. ASSESSMENT AND PLAN: Right hip osteoarthritis, status post total right hip arthroplasty -Follow-up with orthopedic surgeon in 2 weeks -Pain control, DVT prophylaxis -PT/rehab Iron deficient anemia -cont iron sup Hypertension -Continue home medications Dyslipidemia/triglyceridemia -On statin/tricor DMII -cont.basal/bolus-note pt eats food from home. GERD -PPI Obesity -Weight reduction advised DVT ppx: Aspirin twice daily per orthopedics/SCDs Patient was seen in collaboration with Dr. Ordoñez Results 24hrs Laboratory Tests Test 02/23/19 11:58 02/23/19 17:17 02/23/19 20:23 02/23/19 22:54 Bedside Glucose 133 211 322 H 195 Test 02/24/19 02:00 02/24/19 07:39 Bedside Glucose 172 172 Hemoglobin A1c 6.5 H Exam/Review of Systems Exam Vitals Vital Signs Date Temp Pulse Resp B/P (MAP) Pulse Ox O2 O2 Flow FiO2 Time Delivery Rate 02/24/19 98.6 67 18 118/56 96 Room Air 07:30 (76) Intake and Output 6/28/19 6/28/19 6/29/19 1515:00 23:00 07:00 IntakeIntake Total 780 ml 550 ml BalanceBalance 780 ml 550 ml Results Results 24hrs Laboratory Tests Test 02/23/19 11:58 02/23/19 17:17 02/23/19 20:23 02/23/19 22:54 Bedside Glucose 133 211 322 H 195 Test 02/24/19 02:00 02/24/19 07:39 Bedside Glucose 172 172 Hemoglobin A1c 6.5 H Medications Medication Current Medications Senna (Senokot) 1 tab HS PO Last administered on 02/23/19 20:45; Admin Dose 1 TAB; Start 02/18/19 at 21:00 Magnesium Hydroxide (Milk Of Mag) 30 ml BID PRN PO CONSTIPATION; Start 02/18/19 at 18:00 Lactulose (Enulose) 20 gm DAILY PRN PO CONSTIPATION; Start 02/18/19 at 18:00 Bisacodyl (Dulcolax Supp) 10 mg DAILY PRN [place] CONSTIPATION Last administered on 02/20/19 05:54; Admin Dose 10 MG; Start 02/18/19 at 18:00 Acetaminophen (Tylenol Tab) 650 mg Q4H PRN PO PAIN; Start 02/18/19 at 18:00 Miscellaneous Information (Pending [facility] Order For Wound Care) This patient brumfield... PRN PRN XX WOUND CARE; Start 02/18/19 at 18:00 Amlodipine Besylate (Norvasc) 10 mg DAILY PO Last administered on 02/24/19 09:05; Admin Dose 10 MG; Start 02/19/19 at 09:00 Atorvastatin Calcium (Lipitor) 40 mg HS PO Last administered on 02/23/19 20:45; Admin Dose 40 MG; Start 02/18/19 at 21:00 Fenofibrate (Tricor) 145 mg DAILY PO Last administered on 02/24/19 09:05; Admin Dose 145 MG; Start 02/19/19 at 09:00 Gabapentin (Neurontin) 300 mg TID PO Last administered on 02/24/19 09:06; Admin Dose 300 MG; Start 02/18/19 at 21:00 Losartan Potassium (Cozaar) 100 mg DAILY PO Last administered on 02/24/19 09:05; Admin Dose 100 MG; Start 02/19/19 at 09:00 Pantoprazole (Protonix Tab) 40 mg DAILY@06 PO Last administered on 02/24/19at 06:13; Admin Dose 40 MG; Start 02/19/19 at 06:00 Tramadol HCl (Ultram) 50 mg Q6H PRN PO MODERATE PAIN LEVEL 4-6; Start 02/18/19 at 22:00 Diagnostic Test (Pha) (Accu-Chek) 1 ea 02 XX Last administered on 02/24/19at 02:03; Admin Dose 1 EA; Start 02/19/19 at 02:00 Miscellaneous Information 1 ea NOTE XX ; Start 02/18/19 at 22:30 Glucose (Glutose) 15 gm Q15M PRN PO DECREASED GLUCOSE; Start 02/18/19 at 22:30 Glucose (Glutose) 22.5 gm Q15M PRN PO DECREASED GLUCOSE; Start 02/18/19 at 22:30 Dextrose (D50w Syringe) 25 ml Q15M PRN IV DECREASED GLUCOSE; Start 02/18/19 at 22:30 Dextrose (D50w Syringe) 50 ml Q15M PRN IV DECREASED GLUCOSE; Start 02/18/19 at 22:30 Glucagon (Glucagen) 1 mg Q15M PRN IM DECREASED GLUCOSE; Start 02/18/19 at 22:30 Glucose (Glutose) 15 gm Q15M PRN BUCCAL DECREASED GLUCOSE; Start 02/18/19 at 22 :30 Acetaminophen/ Hydrocodone Bitart ([place] (5/325)) 1 tab Q4H PRN PO MODERATE PAIN LEVEL 4-6 Last administered on 02/24/19at 09:12; Admin Dose 1 TAB; Start 02/18/19 at 22:30 Hydrochlorothiazide (Hydrochlorothiazide) 12.5 mg DAILY PO Last administered on 02/24/19at 09:05; Admin Dose 12.5 MG; Start 02/19/19 at 09:00 Docusate Sodium (Colace) 100 mg BID PO Last administered on 02/24/19at 09:05; Admin Dose 100 MG; Start 02/19/19 at 09:00 Magnesium Hydroxide (Milk Of Mag) 30 ml Q12 PRN PO CONSTIPATION; Start 02/18/19 at 22:30 Insulin Aspart (Novolog Insulin Pen) NOVOLOG *MILD* ALGORITHM WITH MEALS BEDTIME SC Last administered on 02/24/19 07:46; Admin Dose 1 UNIT; Start 02/18/19 at 23:00 Aspirin (Halfprin) 81 mg BID PO Last administered on 02/24/19 09:04; Admin Dose 81 MG; Start 02/19/19 at 09:00 Metoclopramide HCl (Reglan) 10 mg DAILY PRN IV NAUSEA; Start 02/19/19 at 00:00 Ferrous Sulfate (Ferrous Sulfate (Ec)) 325 mg BID PO Last administered on 02/24/19 09:05; Admin Dose 325 MG; Start 02/19/19 at 21:00 Insulin Aspart (Novolog Insulin Pen) 10 unit WITH MEALS SC Last administered on 02/24/19 07:46; Admin Dose 10 UNIT; Start 02/20/19 at 17:35 Insulin Glargine (Lantus) 30 units DAILY@0800 SC Last administered on 02/24/19 07:47; Admin Dose 30 UNITS; Start 02/21/19 at 08:00 RENATA KATE NP Feb 24, 2019 11:54
[2019-02-24 14:00] VITALS: BP 128/58; PULSE 71; RESP 18
[2019-02-24 19:58] VITALS: BP 113/54; PULSE 75; RESP 18
[2019-02-24] MEDS: ATORVASTATIN 40 MG TAB PO SCH (20:38)
[2019-02-24] MEDS: SENNA TAB PO SCH (20:38)
[2019-02-25] MEDS: ACCU-CHEK XX SCH (02:00)
[2019-02-25 02:50] VITALS: BP 114/57; PULSE 70; RESP 20
[2019-02-25] MEDS: HYDROCODONE/APAP (5/325) TAB PO PRN (06:00)
[2019-02-25] MEDS: PANTOPRAZOLE (EC) 40 MG TAB PO SCH (06:00)
[2019-02-25 07:30] VITALS: BP 110/54; PULSE 63; RESP 18
[2019-02-25] MEDS: INSULIN ASPART [NOVOLOG] 3 ML PEN SC SCH ×7 (07:53→20:58)
[2019-02-25] MEDS: INSULIN GLARGINE [LANTus] (100 UNITS/ML) SYG SC SCH (07:55)
[2019-02-25] MEDS: ASPIRIN (EC) 81 MG TAB PO SCH ×2 (08:43→20:56)
[2019-02-25] MEDS: FERROUS SULFATE (EC) 325 MG TAB PO SCH ×2 (08:43→20:56)
[2019-02-25] MEDS: GABAPENTIN 300 MG CAP PO SCH ×3 (08:43→20:56)
[2019-02-25] MEDS: DOCUSATE SODIUM 100 MG CAP PO SCH ×2 (08:43→20:56)
[2019-02-25] MEDS: AMLODIPINE 10 MG TAB PO SCH (08:43)
[2019-02-25] MEDS: FENOFIBRATE 145 MG TAB PO SCH (08:44)
[2019-02-25] MEDS: HYDROCHLOROTHIAZIDE 12.5 MG CAP PO SCH (08:44)
[2019-02-25] MEDS: LOSARTAN 50 MG TAB PO SCH (08:44)
--- NOTE | 2019-02-25 11:50 | PN ---
Date/Time of Note Date/Time of Note DATE: 02/25/19 TIME: 11:49 Assessment/Plan VTE Prophylaxis Risk score (from Ns)>0 risk: 12 SCD applied (from [facility] No SCD contraindicated: other Pharmacological prophylaxis: NA/contraindicated Pharm contraindication: other (asa bid) Lines/Catheters IV C[facility] Type (from [facility]): Saline Lock Assessment/Plan Hospital Course SUBJECTIVE: No acute episodes. Participating with physical therapy. OBJECTIVE: Vital signs-see below PHYSICAL EXAM: Constitutional: Adequately built,not in acute distress. HEENT: Head atraumatic and normocephalic. Eyes: Extraocular muscles intact. Anicteric sclerae. Pupils equal bilaterally, reactive to light. NECK: Supple without lymph node. CHEST: Clear and good breath sounds equally. No wheezing. No rhonchi. HEART: S1, S2. Regular rate and rhythm. ABDOMEN: Soft/non tender with no rebound tenderness. Bowel sounds were present. EXTREMITIES: left hip dressing c/d/i. Mild swelling around the site-no ecchymosis/bruising/hematoma. No cyanosis, clubbing or edema. NEUROLOGIC: Alert and oriented x3. No focal deficit. No sensory deficit. PSYCHOSOCIAL: No signs of depression. INTEGUMENTARY: No open wounds. ASSESSMENT AND PLAN: Right hip osteoarthritis, status post total right hip arthroplasty -Follow-up with orthopedic surgeon in 2 weeks -Pain control, DVT prophylaxis -PT/rehab Iron deficient anemia -cont iron sup Hypertension -Continue home medications Dyslipidemia/triglyceridemia -On statin/tricor DMII -cont.basal/bolus-note pt eats food from home. GERD -PPI Obesity -Weight reduction advised DVT ppx: Aspirin twice daily per orthopedics/SCDs Patient was seen in collaboration with Dr. Ordoñez Results 24hrs Laboratory Tests Test 02/24/19 11:53 02/24/19 17:01 02/24/19 20:36 02/25/19 07:48 Bedside Glucose 117 114 119 181 Exam/Review of Systems Exam Vitals Vital Signs Date Temp Pulse Resp B/P (MAP) Pulse Ox O2 O2 Flow FiO2 Time Delivery Rate 02/25/19 98.0 63 18 110/54 95 Room Air 07:30 (72) Intake and Output 02/24/19 02/24/19 02/25/19 1515:00 23:00 07:00 IntakeIntake Total 1320 ml OutputOutput Total 200 ml BalanceBalance 1320 ml -200 ml Results Results 24hrs Laboratory Tests Test 02/24/19 11:53 02/24/19 17:01 02/24/19 20:36 02/25/19 07:48 Bedside Glucose 117 114 119 181 Medications Medication Current Medications Senna (Senokot) 1 tab HS PO Last administered on 02/24/19 20:38; Admin Dose 1 TAB; Start 02/18/19 at 21:00 Magnesium Hydroxide (Milk Of Mag) 30 ml BID PRN PO CONSTIPATION; Start 02/18/19 at 18:00 Lactulose (Enulose) 20 gm DAILY PRN PO CONSTIPATION; Start 02/18/19 at 18:00 Bisacodyl (Dulcolax Supp) 10 mg DAILY PRN [place] CONSTIPATION Last administered on 02/20/19 05:54; Admin Dose 10 MG; Start 02/18/19 at 18:00 Acetaminophen (Tylenol Tab) 650 mg Q4H PRN PO PAIN; Start 02/18/19 at 18:00 [facility] This patient brumfield... PRN PRN XX WOUND CARE; Start 02/18/19 at 18:00 Amlodipine Besylate (Norvasc) 10 mg DAILY PO Last administered on 02/25/19 08:43; Admin Dose 10 MG; Start 02/19/19 at 09:00 Atorvastatin Calcium (Lipitor) 40 mg HS PO Last administered on 02/24/19 20:38; Admin Dose 40 MG; Start 02/18/19 at 21:00 Fenofibrate (Tricor) 145 mg DAILY PO Last administered on 02/25/19 08:44; Admin Dose 145 MG; Start 02/19/19 at 09:00 Gabapentin (Neurontin) 300 mg TID PO Last administered on 02/25/19 08:43; Admin Dose 300 MG; Start 02/18/19 at 21:00 Losartan Potassium (Cozaar) 100 mg DAILY PO Last administered on 02/25/19 08:44; Admin Dose 100 MG; Start 02/19/19 at 09:00 Pantoprazole (Protonix Tab) 40 mg DAILY@06 PO Last administered on 02/25/19 06:00; Admin Dose 40 MG; Start 02/19/19 at 06:00 Tramadol HCl (Ultram) 50 mg Q6H PRN PO MODERATE PAIN LEVEL 4-6; Start 02/18/19 at 22:00 Diagnostic Test (Pha) (Accu-Chek) 1 ea 02 XX Last administered on 02/24/19at 02:03; Admin Dose 1 EA; Start 02/19/19 at 02:00 Miscellaneous Information 1 ea NOTE XX ; Start 02/18/19 at 22:30 Glucose (Glutose) 15 gm Q15M PRN PO DECREASED GLUCOSE; Start 02/18/19 at 22:30 Glucose (Glutose) 22.5 gm Q15M PRN PO DECREASED GLUCOSE; Start 02/18/19 at 22:30 Dextrose (D50w Syringe) 25 ml Q15M PRN IV DECREASED GLUCOSE; Start 02/18/19 at 22:30 Dextrose (D50w Syringe) 50 ml Q15M PRN IV DECREASED GLUCOSE; Start 02/18/19 at 22:30 Glucagon (Glucagen) 1 mg Q15M PRN IM DECREASED GLUCOSE; Start 02/18/19 at 22:30 Glucose (Glutose) 15 gm Q15M PRN BUCCAL DECREASED GLUCOSE; Start 02/18/19 at 22:30 Acetaminophen/ Hydrocodone Bitart ([place] (5/325)) 1 tab Q4H PRN PO MODERATE PAIN LEVEL 4-6 Last administered on 02/25/19at 06:00; Admin Dose 1 TAB; Start 02/18/19 at 22:30 Hydrochlorothiazide (Hydrochlorothiazide) 12.5 mg DAILY PO Last administered on 02/25/19at 08:44; Admin Dose 12.5 MG; Start 02/19/19 at 09:00 Docusate Sodium (Colace) 100 mg BID PO Last administered on 02/25/19 08:43; Admin Dose 100 MG; Start 02/19/19 at 09:00 Magnesium Hydroxide (Milk Of Mag) 30 ml Q12 PRN PO CONSTIPATION; Start 02/18/19 at 22:30 Insulin Aspart (Novolog Insulin Pen) NOVOLOG *MILD* ALGORITHM WITH MEALS BEDTIME SC Last administered on 02/25/19at 07:53; Admin Dose 2 UNIT; Start 02/18/19 at 23:00 Aspirin (Halfprin) 81 mg BID PO Last administered on 02/25/19 08:43; Admin Dose 81 MG; Start 02/19/19 at 09:00 Metoclopramide HCl (Reglan) 10 mg DAILY PRN IV NAUSEA; Start 02/19/19 at 00:00 Ferrous Sulfate (Ferrous Sulfate (Ec)) 325 mg BID PO Last administered on 02/25/19at 08:43; Admin Dose 325 MG; Start 02/19/19 at 21:00 Insulin Aspart (Novolog Insulin Pen) 10 unit WITH MEALS SC Last administered on 02/25/19at 07:55; Admin Dose 10 UNIT; Start 02/20/19 at 17:35 Insulin Glargine (Lantus) 30 units DAILY@0800 SC Last administered on 02/25/19at 07:55; Admin Dose 30 UNITS; Start 02/21/19 at 08:00 RENATA KATE NP Feb 25, 2019 11:50
[2019-02-25 14:00] VITALS: BP 107/56; PULSE 62; RESP 18
[2019-02-25 20:00] VITALS: BP 108/55; PULSE 73; RESP 18
[2019-02-25] MEDS: SENNA TAB PO SCH (20:57)
[2019-02-25] MEDS: ATORVASTATIN 40 MG TAB PO SCH (20:57)
[2019-02-26 02:00] VITALS: BP 116/57; PULSE 68; RESP 18
[2019-02-26] MEDS: ACCU-CHEK XX SCH (02:11)
[2019-02-26] MEDS: PANTOPRAZOLE (EC) 40 MG TAB PO SCH (06:41)
[2019-02-26 07:30] VITALS: BP 144/65; PULSE 69; RESP 18
[2019-02-26] MEDS: INSULIN ASPART [NOVOLOG] 3 ML PEN SC SCH ×7 (07:54→20:14)
[2019-02-26] MEDS: INSULIN GLARGINE [LANTus] (100 UNITS/ML) SYG SC SCH (07:55)
[2019-02-26] MEDS: FENOFIBRATE 145 MG TAB PO SCH (08:23)
[2019-02-26] MEDS: DOCUSATE SODIUM 100 MG CAP PO SCH ×2 (08:24→20:13)
[2019-02-26] MEDS: GABAPENTIN 300 MG CAP PO SCH ×3 (08:24→20:13)
[2019-02-26] MEDS: ASPIRIN (EC) 81 MG TAB PO SCH ×2 (08:24→20:13)
[2019-02-26] MEDS: AMLODIPINE 10 MG TAB PO SCH (08:24)
[2019-02-26] MEDS: FERROUS SULFATE (EC) 325 MG TAB PO SCH ×2 (08:24→20:13)
[2019-02-26] MEDS: HYDROCHLOROTHIAZIDE 12.5 MG CAP PO SCH (08:25)
[2019-02-26] MEDS: LOSARTAN 50 MG TAB PO SCH (08:25)
[2019-02-26] MEDS: HYDROCODONE/APAP (5/325) TAB PO PRN (10:21)
--- NOTE | 2019-02-26 10:50 | PN ---
Date/Time of Note Date/Time of Note DATE: 02/26/19 TIME: 10:41 Objective Vital Signs Date Temp Pulse Resp B/P (MAP) Pulse Ox O2 O2 Flow FiO2 Time Delivery Rate 02/26/19 97.9 68 18 116/57 96 Room Air 02:00 (76) Intake and Output 02/25/19 02/25/19 02/26/19 1515:00 23:00 07:00 IntakeIntake Total 300 ml 1060 ml 100 ml OutputOutput Total 800 ml BalanceBalance 300 ml 1060 ml -700 ml Exam INTERDISCIPLINARY TEAM CONFERENCE Attended by PT, OT, ST, Treasury Associate, Social Work, Rehabilitation Nursing, Hvac/R Instructor and Machine Veneer RepairerSupervisor Tan Room Exam: Pulm-cta Abd-soft BOWEL- Cont BLADDER-Cont SKIN- intact OT- DRESSING-min BATHING-min TOILETING-min PT- BED MOBILITY-cga TRANSFERS-cga AMBULATION-cga 125 feet A/P- Interdisciplinary team conference held today. Please see interdisciplinary sheet. Working toward d.c. on 03/05 with post discharge follow up of physical therapy, occupational therapy. Results/Medications Results 24 hrs Laboratory Tests Test 02/25/19 12:06 02/25/19 17:11 02/25/19 20:45 02/26/19 02:08 Bedside Glucose 228 H 166 223 H 232 H Test 02/26/19 07:49 Bedside Glucose 156 Medications Current Medications Senna (Senokot) 1 tab HS PO Last administered on 02/25/19at 20:57; Admin Dose 1 TAB; Start 02/18/19 at 21:00 Magnesium Hydroxide (Milk Of Mag) 30 ml BID PRN PO CONSTIPATION; Start 02/18/19 at 18:00 Lactulose (Enulose) 20 gm DAILY PRN PO CONSTIPATION; Start 02/18/19 at 18:00 Bisacodyl (Dulcolax Supp) 10 mg DAILY PRN [place] CONSTIPATION Last administered on 02/20/19at 05:54; Admin Dose 10 MG; Start 02/18/19 at 18:00 Acetaminophen (Tylenol Tab) 650 mg Q4H PRN PO PAIN; Start 02/18/19 at 18:00 [facility] This patient brumfield... PRN PRN XX WOUND CARE; Start 02/18/19 at 18:00 Amlodipine Besylate (Norvasc) 10 mg DAILY PO Last administered on 02/26/19 08:24; Admin Dose 10 MG; Start 02/19/19 at 09:00 Atorvastatin Calcium (Lipitor) 40 mg HS PO Last administered on 02/25/19at 20:57; Admin Dose 40 MG; Start 02/18/19 at 21:00 Fenofibrate (Tricor) 145 mg DAILY PO Last administered on 02/26/19 08:23; Admin Dose 145 MG; Start 02/19/19 at 09:00 Gabapentin (Neurontin) 300 mg TID PO Last administered on 02/26/19 08:24; Admin Dose 300 MG; Start 02/18/19 at 21:00 Losartan Potassium (Cozaar) 100 mg DAILY PO Last administered on 02/26/19 08:25; Admin Dose 100 MG; Start 02/19/19 at 09:00 Pantoprazole (Protonix Tab) 40 mg DAILY@06 PO Last administered on 02/26/19at 06:41; Admin Dose 40 MG; Start 02/19/19 at 06:00 Tramadol HCl (Ultram) 50 mg Q6H PRN PO MODERATE PAIN LEVEL 4-6; Start 02/18/19 at 22:00 Diagnostic Test (Pha) (Accu-Chek) 1 ea 02 XX Last administered on 02/26/19at 02:11; Admin Dose 1 EA; Start 02/19/19 at 02:00 Miscellaneous Information 1 ea NOTE XX ; Start 02/18/19 at 22:30 Glucose (Glutose) 15 gm Q15M PRN PO DECREASED GLUCOSE; Start 02/18/19 at 22:30 Glucose (Glutose) 22.5 gm Q15M PRN PO DECREASED GLUCOSE; Start 02/18/19 at 22:30 Dextrose (D50w Syringe) 25 ml Q15M PRN IV DECREASED GLUCOSE; Start 02/18/19 at 22:30 Dextrose (D50w Syringe) 50 ml Q15M PRN IV DECREASED GLUCOSE; Start 02/18/19 at 22:30 Glucagon (Glucagen) 1 mg Q15M PRN IM DECREASED GLUCOSE; Start 02/18/19 at 22:30 Glucose (Glutose) 15 gm Q15M PRN BUCCAL DECREASED GLUCOSE; Start 02/18/19 at 22:30 Acetaminophen/ Hydrocodone Bitart ([place] (5/325)) 1 tab Q4H PRN PO MODERATE PAIN LEVEL 4-6 Last administered on 02/26/19 10:21; Admin Dose 1 TAB; Start 02/18/19 at 22:30 Hydrochlorothiazide (Hydrochlorothiazide) 12.5 mg DAILY PO Last administered on 02/26/19 08:25; Admin Dose 12.5 MG; Start 02/19/19 at 09:00 Docusate Sodium (Colace) 100 mg BID PO Last administered on 02/26/19 08:24; Admin Dose 100 MG; Start 02/19/19 at 09:00 Magnesium Hydroxide (Milk Of Mag) 30 ml Q12 PRN PO CONSTIPATION; Start 02/18/19 at 22:30 Insulin Aspart (Novolog Insulin Pen) NOVOLOG *MILD* ALGORITHM WITH MEALS BEDTIME SC Last administered on 02/26/19 07:54; Admin Dose 1 UNIT; Start 02/18/19 at 23:00 Aspirin (Halfprin) 81 mg BID PO Last administered on 02/26/19 08:24; Admin Dose 81 MG; Start 02/19/19 at 09:00 Metoclopramide HCl (Reglan) 10 mg DAILY PRN IV NAUSEA; Start 02/19/19 at 00:00 Ferrous Sulfate (Ferrous Sulfate (Ec)) 325 mg BID PO Last administered on 02/26/19 08:24; Admin Dose 325 MG; Start 02/19/19 at 21:00 Insulin Aspart (Novolog Insulin Pen) 10 unit WITH MEALS SC Last administered on 02/26/19 07:54; Admin Dose 10 UNIT; Start 02/20/19 at 17:35 Insulin Glargine (Lantus) 30 units DAILY@0800 SC Last administered on 02/26/19 07:55; Admin Dose 30 UNITS; Start 02/21/19 at 08:00 SUGAR URRUTIA MD Feb 26, 2019 10:50
--- NOTE | 2019-02-26 11:35 | PN ---
Date/Time of Note Date/Time of Note DATE: 02/26/19 TIME: 11:33 Assessment/Plan VTE Prophylaxis Risk score (from Ns)>0 risk: 12 SCD applied (from Ns): No SCD contraindicated: other Pharmacological prophylaxis: other (ASA BID) Lines/Catheters IV [facility] (from [facility] [place] Assessment/Plan Hospital Course SUBJECTIVE: No acute episodes. Participating with physical therapy. OBJECTIVE: Vital signs-see below PHYSICAL EXAM: Constitutional: Adequately built,not in acute distress. HEENT: Head atraumatic and normocephalic. Eyes: Extraocular muscles intact. Anicteric sclerae. Pupils equal bilaterally, reactive to light. NECK: Supple without lymph node. CHEST: Clear and good breath sounds equally. No wheezing. No rhonchi. HEART: S1, S2. Regular rate and rhythm. ABDOMEN: Soft/non tender with no rebound tenderness. Bowel sounds were present. EXTREMITIES: left hip dressing c/d/i. Mild swelling around the site-no ecchymosis/bruising/hematoma. No cyanosis, clubbing or edema. NEUROLOGIC: Alert and oriented x3. No focal deficit. No sensory deficit. PSYCHOSOCIAL: No signs of depression. INTEGUMENTARY: No open wounds. ASSESSMENT AND PLAN: Right hip osteoarthritis, status post total right hip arthroplasty -Follow-up with orthopedic surgeon in 2 weeks -Pain control, DVT prophylaxis -PT/rehab Iron deficient anemia -cont iron sup Hypertension -Continue home medications Dyslipidemia/triglyceridemia -On statin/tricor DMII -cont.basal/bolus-adjust today. Note pt eats food from home. GERD -PPI Obesity -Weight reduction advised DVT ppx: Aspirin twice daily per orthopedics/SCDs Patient was seen in collaboration with Dr. Ordoñez Results 24hrs Laboratory Tests Test 02/25/19 12:06 02/25/19 17:11 02/25/19 20:45 02/26/19 02:08 Bedside Glucose 228 H 166 223 H 232 H Test 02/26/19 07:49 Bedside Glucose 156 Exam/Review of Systems Exam Vitals Vital Signs Date Temp Pulse Resp B/P (MAP) Pulse Ox O2 O2 Flow FiO2 Time Delivery Rate 02/26/19 97.9 68 18 116/57 96 Room Air 02:00 (76) Intake and Output 02/25/19 02/25/19 02/26/19 1515:00 23:00 07:00 IntakeIntake Total 300 ml 1060 ml 100 ml OutputOutput Total 800 ml BalanceBalance 300 ml 1060 ml -700 ml Results Results 24hrs Laboratory Tests Test 02/25/19 12:06 02/25/19 17:11 02/25/19 20:45 02/26/19 02:08 Bedside Glucose 228 H 166 223 H 232 H Test 02/26/19 07:49 Bedside Glucose 156 Medications Medication Current Medications Senna (Senokot) 1 tab HS PO Last administered on 02/25/19 20:57; Admin Dose 1 TAB; Start 02/18/19 at 21:00 Magnesium Hydroxide (Milk Of Mag) 30 ml BID PRN PO CONSTIPATION; Start 02/18/19 at 18:00 Lactulose (Enulose) 20 gm DAILY PRN PO CONSTIPATION; Start 02/18/19 at 18:00 Bisacodyl (Dulcolax Supp) 10 mg DAILY PRN [place] CONSTIPATION Last administered on 02/20/19 05:54; Admin Dose 10 MG; Start 02/18/19 at 18:00 Acetaminophen (Tylenol Tab) 650 mg Q4H PRN PO PAIN; Start 02/18/19 at 18:00 Miscellaneous Information (Pending [facility] Order For Wound Care) This patient brumfield... PRN PRN XX WOUND CARE; Start 02/18/19 at 18:00 Amlodipine Besylate (Norvasc) 10 mg DAILY PO Last administered on 02/26/19 08:24; Admin Dose 10 MG; Start 02/19/19 at 09:00 Atorvastatin Calcium (Lipitor) 40 mg HS PO Last administered on 02/25/19 20:57; Admin Dose 40 MG; Start 02/18/19 at 21:00 Fenofibrate (Tricor) 145 mg DAILY PO Last administered on 02/26/19 08:23; Admin Dose 145 MG; Start 02/19/19 at 09:00 Gabapentin (Neurontin) 300 mg TID PO Last administered on 02/26/19 08:24; Admin Dose 300 MG; Start 02/18/19 at 21:00 Losartan Potassium (Cozaar) 100 mg DAILY PO Last administered on 02/26/19 08:25; Admin Dose 100 MG; Start 02/19/19 at 09:00 Pantoprazole (Protonix Tab) 40 mg DAILY@06 PO Last administered on 02/26/19at 06:41; Admin Dose 40 MG; Start 02/19/19 at 06:00 Tramadol HCl (Ultram) 50 mg Q6H PRN PO MODERATE PAIN LEVEL 4-6; Start 02/18/19 at 22:00 Diagnostic Test (Pha) (Accu-Chek) 1 ea 02 XX Last administered on 02/26/19at 02:11; Admin Dose 1 EA; Start 02/19/19 at 02:00 Miscellaneous Information 1 ea NOTE XX ; Start 02/18/19 at 22:30 Glucose (Glutose) 15 gm Q15M PRN PO DECREASED GLUCOSE; Start 02/18/19 at 22:30 Glucose (Glutose) 22.5 gm Q15M PRN PO DECREASED GLUCOSE; Start 02/18/19 at 22:30 Dextrose (D50w Syringe) 25 ml Q15M PRN IV DECREASED GLUCOSE; Start 02/18/19 at 22:30 Dextrose (D50w Syringe) 50 ml Q15M PRN IV DECREASED GLUCOSE; Start 02/18/19 at 22:30 Glucagon (Glucagen) 1 mg Q15M PRN IM DECREASED GLUCOSE; Start 02/18/19 at 22:30 Glucose (Glutose) 15 gm Q15M PRN BUCCAL DECREASED GLUCOSE; Start 02/18/19 at 22:30 Acetaminophen/ Hydrocodone Bitart ([place] (5/325)) 1 tab Q4H PRN PO MODERATE FRANCIS N LEVEL 4-6 Last administered on 02/26/19at 10:21; Admin Dose 1 TAB; Start 02/18/19 at 22:30 Hydrochlorothiazide (Hydrochlorothiazide) 12.5 mg DAILY PO Last administered on 02/26/19at 08:25; Admin Dose 12.5 MG; Start 02/19/19 at 09:00 Docusate Sodium (Colace) 100 mg BID PO Last administered on 02/26/19at 08:24; Admin Dose 100 MG; Start 02/19/19 at 09:00 Magnesium Hydroxide (Milk Of Mag) 30 ml Q12 PRN PO CONSTIPATION; Start 02/18/19 at 22:30 Insulin Aspart (Novolog Insulin Pen) NOVOLOG *MILD* ALGORITHM WITH MEALS BEDTIME SC Last administered on 02/26/19at 07:54; Admin Dose 1 UNIT; Start 02/18/19 at 23:00 Aspirin (Halfprin) 81 mg BID PO Last administered on 02/26/19at 08:24; Admin Dose 81 MG; Start 02/19/19 at 09:00 Metoclopramide HCl (Reglan) 10 mg DAILY PRN IV NAUSEA; Start 02/19/19 at 00:00 Ferrous Sulfate (Ferrous Sulfate (Ec)) 325 mg BID PO Last administered on 02/26/19at 08:24; Admin Dose 325 MG; Start 02/19/19 at 21:00 Insulin Aspart (Novolog Insulin Pen) 10 unit WITH MEALS SC Last administered on 02/26/19at 07:54; Admin Dose 10 UNIT; Start 02/20/19 at 17:35 Insulin Glargine (Lantus) 30 units DAILY@0800 SC Last administered on 02/26/19at 07:55; Admin Dose 30 UNITS; Start 02/21/19 at 08:00 RENATA KATE NP Feb 26, 2019 11:35
[2019-02-26 14:00] VITALS: BP 119/57; PULSE 73; RESP 18
[2019-02-26 20:10] VITALS: BP 117/56; PULSE 71; RESP 18
[2019-02-26] MEDS: SENNA TAB PO SCH (20:13)
[2019-02-26] MEDS: ATORVASTATIN 40 MG TAB PO SCH (20:13)
[2019-02-27 02:14] VITALS: BP 155/67; PULSE 72; RESP 18
[2019-02-27] MEDS: ACCU-CHEK XX SCH (02:16)
[2019-02-27] MEDS: PANTOPRAZOLE (EC) 40 MG TAB PO SCH (06:11)
[2019-02-27] MEDS: HYDROCODONE/APAP (5/325) TAB PO PRN ×2 (06:14→21:52)
[2019-02-27 07:00] VITALS: BP 128/59; PULSE 64; RESP 18
[2019-02-27] MEDS: INSULIN ASPART [NOVOLOG] 3 ML PEN SC SCH ×7 (07:56→20:57)
[2019-02-27] MEDS: INSULIN GLARGINE [LANTus] (100 UNITS/ML) SYG SC SCH (07:58)
[2019-02-27] MEDS: ASPIRIN (EC) 81 MG TAB PO SCH ×2 (08:15→20:56)
[2019-02-27] MEDS: AMLODIPINE 10 MG TAB PO SCH (08:15)
[2019-02-27] MEDS: GABAPENTIN 300 MG CAP PO SCH ×3 (08:15→20:56)
[2019-02-27] MEDS: LOSARTAN 50 MG TAB PO SCH (08:15)
[2019-02-27] MEDS: FENOFIBRATE 145 MG TAB PO SCH (08:15)
[2019-02-27] MEDS: FERROUS SULFATE (EC) 325 MG TAB PO SCH ×2 (08:15→20:55)
[2019-02-27] MEDS: HYDROCHLOROTHIAZIDE 12.5 MG CAP PO SCH (08:16)
[2019-02-27] MEDS: DOCUSATE SODIUM 100 MG CAP PO SCH ×2 (08:16→20:56)
[2019-02-27 14:00] VITALS: BP 125/60; PULSE 69; RESP 18
--- NOTE | 2019-02-27 14:28 | PN ---
Date/Time of Note Date/Time of Note DATE: 02/27/19 TIME: 14:24 Assessment/Plan VTE Prophylaxis Risk score (from Ns)>0 risk: 9 SCD applied (from Ns): No SCD contraindicated: other Pharmacological prophylaxis: other (aspirin bid) Lines/Catheters IV Catheter Type (from [facility]): [place] Assessment/Plan Hospital Course SUBJECTIVE: No acute episodes. Participating with physical therapy. OBJECTIVE: Vital signs-see below PHYSICAL EXAM: Constitutional: Adequately built,not in acute distress. HEENT: Head atraumatic and normocephalic. Eyes: Extraocular muscles intact. Anicteric sclerae. Pupils equal bilaterally, reactive to light. NECK: Supple without lymph node. CHEST: Clear and good breath sounds equally. No wheezing. No rhonchi. HEART: S1, S2. Regular rate and rhythm. ABDOMEN: Soft/non tender with no rebound tenderness. Bowel sounds were present. EXTREMITIES: left hip dressing c/d/i. Mild swelling around the site-no ecchymo sis/bruising/hematoma. No cyanosis, clubbing or edema. NEUROLOGIC: Alert and oriented x3. No focal deficit. No sensory deficit. PSYCHOSOCIAL: No signs of depression. INTEGUMENTARY: No open wounds. ASSESSMENT AND PLAN: Right hip osteoarthritis, status post total right hip arthroplasty -Follow-up with orthopedic surgeon in 2 weeks -Pain control, DVT prophylaxis -PT/rehab Iron deficient anemia -cont iron sup Hypertension -Continue home medications Dyslipidemia/triglyceridemia -On statin/tricor DMII -improving BS trends. -cont.basal/bolus. Note pt eats food from home. GERD -PPI Obesity -Weight reduction advised DVT ppx: Aspirin twice daily per orthopedics/SCDs Patient was seen in collaboration with Dr. Angeles Results 24hrs Laboratory Tests Test 02/26/19 17:19 02/26/19 20:12 02/27/19 02:11 02/27/19 07:54 Bedside Glucose 225 H 192 228 H 225 H Test 02/27/19 11:57 Bedside Glucose 145 Exam/Review of Systems Exam Vitals Vital Signs Date Temp Pulse Resp B/P (MAP) Pulse Ox O2 O2 Flow FiO2 Time Delivery Rate 02/27/19 98.5 64 18 128/59 96 Room Air 07:00 (82) Intake and Output 02/26/19 02/26/19 02/27/19 1515:00 23:00 07:00 IntakeIntake Total 200 ml 1230 ml 100 ml BalanceBalance 200 ml 1230 ml 100 ml Results Results 24hrs Laboratory Tests Test 02/26/19 17:19 02/26/19 20:12 02/27/19 02:11 02/27/19 07:54 Bedside Glucose 225 H 192 228 H 225 H Test 02/27/19 11:57 Bedside Glucose 145 Medications Medication Current Medications Senna (Senokot) 1 tab HS PO Last administered on 02/26/19at 20:13; Admin Dose 1 TAB; Start 02/18/19 at 21:00 Magnesium Hydroxide (Milk Of Mag) 30 ml BID PRN PO CONSTIPATION; Start 02/18/19 at 18:00 Lactulose (Enulose) 20 gm DAILY PRN PO CONSTIPATION; Start 02/18/19 at 18:00 Bisacodyl (Dulcolax Supp) 10 mg DAILY PRN [place] CONSTIPATION Last administered on 02/20/19at 05:54; Admin Dose 10 MG; Start 02/18/19 at 18:00 Acetaminophen (Tylenol Tab) 650 mg Q4H PRN PO PAIN; Start 02/18/19 at 18:00 Miscellaneous Information [facility] This patient brumfield... PRN PRN XX WOUND CARE; Start 02/18/19 at 18:00 Amlodipine Besylate (Norvasc) 10 mg DAILY PO Last administered on 02/27/19 08:15; Admin Dose 10 MG; Start 02/19/19 at 09:00 Atorvastatin Calcium (Lipitor) 40 mg HS PO Last administered on 02/26/19 20:13; Admin Dose 40 MG; Start 02/18/19 at 21:00 Fenofibrate (Tricor) 145 mg DAILY PO Last administered on 02/27/19 08:15; Admin Dose 145 MG; Start 02/19/19 at 09:00 Gabapentin (Neurontin) 300 mg TID PO Last administered on 02/27/19at 12:04; Admin Dose 300 MG; Start 02/18/19 at 21:00 Losartan Potassium (Cozaar) 100 mg DAILY PO Last administered on 02/27/19 08:15; Admin Dose 100 MG; Start 02/19/19 at 09:00 Pantoprazole (Protonix Tab) 40 mg DAILY@06 PO Last administered on 02/27/19at 06:11; Admin Dose 40 MG; Start 02/19/19 at 06:00 Tramadol HCl (Ultram) 50 mg Q6H PRN PO MODERATE PAIN LEVEL 4-6; Start 02/18/19 at 22:00 Diagnostic Test (Pha) (Accu-Chek) 1 ea 02 XX Last administered on 02/27/19at 02:16; Admin Dose 1 EA; Start 02/19/19 at 02:00 Miscellaneous Information 1 ea NOTE XX ; Start 02/18/19 at 22:30 Glucose (Glutose) 15 gm Q15M PRN PO DECREASED GLUCOSE; Start 02/18/19 at 22:30 Glucose (Glutose) 22.5 gm Q15M PRN PO DECREASED GLUCOSE; Start 02/18/19 at 22:30 Dextrose (D50w Syringe) 25 ml Q15M PRN IV DECREASED GLUCOSE; Start 02/18/19 at 22:30 Dextrose (D50w Syringe) 50 ml Q15M PRN IV DECREASED GLUCOSE; Start 02/18/19 at 22:30 Glucagon (Glucagen) 1 mg Q15M PRN IM DECREASED GLUCOSE; Start 02/18/19 at 22:30 Glucose (Glutose) 15 gm Q15M PRN BUCCAL DECREASED GLUCOSE; Start 02/18/19 at 22:30 Acetaminophen/ Hydrocodone Bitart ([place] (5/325)) 1 tab Q4H PRN PO MODERATE PAIN LEVEL 4-6 Last administered on 02/27/19at 06:14; Admin Dose 1 TAB; Start 02/18/19 at 22:30 Hydrochlorothiazide (Hydrochlorothiazide) 12.5 mg DAILY PO Last administered on 02/27/19at 08:16; Admin Dose 12.5 MG; Start 02/19/19 at 09:00 Docusate Sodium (Colace) 100 mg BID PO Last administered on 02/27/19at 08:16; Admin Dose 100 MG; Start 02/19/19 at 09:00 Magnesium Hydroxide (Milk Of Mag) 30 ml Q12 PRN PO CONSTIPATION; Start 02/18/19 at 22:30 Insulin Aspart (Novolog Insulin Pen) NOVOLOG *MILD* ALGORITHM WITH MEALS BEDTIME SC Last administered on 02/27/19at 12:00; Admin Dose 1 UNIT; Start 02/18/19 at 23:00 Aspirin (Halfprin) 81 mg BID PO Last administered on 02/27/19 08:15; Admin Dose 81 MG; Start 02/19/19 at 09:00 Metoclopramide HCl (Reglan) 10 mg DAILY PRN IV NAUSEA; Start 02/19/19 at 00:00 Ferrous Sulfate (Ferrous Sulfate (Ec)) 325 mg BID PO Last administered on 02/27/19at 08:15; Admin Dose 325 MG; Start 02/19/19 at 21:00 Insulin Aspart (Novolog Insulin Pen) 10 unit WITH MEALS SC Last administered on 02/27/19at 12:01; Admin Dose 10 UNIT; Start 02/20/19 at 17:35 Insulin Glargine (Lantus) 30 units DAILY@0800 SC Last administered on 02/27/19at 07:58; Admin Dose 30 UNITS; Start 02/21/19 at 08:00 RENATA KATE NP Feb 27, 2019 14:28
--- NOTE | 2019-02-27 17:19 | PN ---
DATE: 02/27/2019 SUBJECTIVE: The patient appears comfortable overnight, continues with physical therapy. OBJECTIVE: GENERAL: Elderly appearing lady, comfortable at rest, in no acute distress. VITAL SIGNS: Temperature 98, pulse 69, blood pressure 125/60, O2 saturation 96% on room air. NECK: Supple. No JVD or lymphadenopathy. CARDIAC: S1, S2 with II/ systolic ejection murmur. CHEST: Diminished air entry on both bases. ABDOMEN: Soft, nontender. No guarding or rebound. EXTREMITIES: No cyanosis, clubbing, 1+ edema. NEUROLOGIC: Generalized weakness. ASSESSMENT AND PLAN: 1. Rehabilitation, severe osteoarthritis, status post right total hip arthroplasty. Continues rehabi litation with good progress. 2. Acute pain syndrome, currently stable. 3. Essential hypertension, well managed. 4. Stable diabetes mellitus. 5. Hyperlipidemia. Dictated By: PAIGE JOYA MD SV/NTS Conf#: [id number] DID#: [id number] CC: SUGAR URRUTIA MD;*EndCC*
[2019-02-27 20:00] VITALS: BP 136/65; PULSE 70; RESP 18
[2019-02-27] MEDS: ATORVASTATIN 40 MG TAB PO SCH (20:56)
[2019-02-27] MEDS: SENNA TAB PO SCH (20:56)
[2019-02-28] MEDS: ACCU-CHEK XX SCH (02:00)
[2019-02-28 02:43] VITALS: BP 134/58; PULSE 65; RESP 18
[2019-02-28] MEDS: PANTOPRAZOLE (EC) 40 MG TAB PO SCH (06:22)
[2019-02-28 07:30] VITALS: BP 133/60; PULSE 64; RESP 18
[2019-02-28] MEDS: INSULIN ASPART [NOVOLOG] 3 ML PEN SC SCH ×7 (08:01→21:06)
[2019-02-28] MEDS: INSULIN GLARGINE [LANTus] (100 UNITS/ML) SYG SC SCH (08:03)
[2019-02-28] MEDS: ASPIRIN (EC) 81 MG TAB PO SCH ×2 (08:33→21:02)
[2019-02-28] MEDS: FENOFIBRATE 145 MG TAB PO SCH (08:33)
[2019-02-28] MEDS: DOCUSATE SODIUM 100 MG CAP PO SCH ×2 (08:34→21:02)
[2019-02-28] MEDS: LOSARTAN 50 MG TAB PO SCH (08:34)
[2019-02-28] MEDS: AMLODIPINE 10 MG TAB PO SCH (08:34)
[2019-02-28] MEDS: GABAPENTIN 300 MG CAP PO SCH ×3 (08:34→21:02)
[2019-02-28] MEDS: FERROUS SULFATE (EC) 325 MG TAB PO SCH ×2 (08:34→21:02)
[2019-02-28] MEDS: HYDROCHLOROTHIAZIDE 12.5 MG CAP PO SCH (08:34)
--- NOTE | 2019-02-28 13:27 | PN ---
Date/Time of Note Date/Time of Note DATE: 02/28/19 TIME: 13:26 Assessment/Plan VTE Prophylaxis Risk score (from Ns)>0 risk: 10 SCD applied (from Ns): No SCD contraindicated: other Pharmacological prophylaxis: other (asa bid) Lines/Catheters IV Cathe[facility] Type (from [facility] [place] Assessment/Plan Hospital Course SUBJECTIVE: No acute episodes. Participating with physical therapy. OBJECTIVE: Vital signs-see below PHYSICAL EXAM: Constitutional: Adequately built,not in acute distress. HEENT: Head atraumatic and normocephalic. Eyes: Extraocular muscles intact. Anicteric sclerae. Pupils equal bilaterally, reactive to light. NECK: Supple without lymph node. CHEST: Clear and good breath sounds equally. No wheezing. No rhonchi. HEART: S1, S2. Regular rate and rhythm. ABDOMEN: Soft/non tender with no rebound tenderness. Bowel sounds were present. EXTREMITIES: left hip dressing c/d/i. Mild swelling around the site-no ecchymosis/bruising/hematoma. No cyanosis, clubbing or edema. NEUROLOGIC: Alert and oriented x3. No focal deficit. No sensory deficit. PSYCHOSOCIAL: No signs of depression. INTEGUMENTARY: No open wounds. ASSESSMENT AND PLAN: Right hip osteoarthritis, status post total right hip arthroplasty -Follow-up with orthopedic surgeon in 2 weeks -Pain control, DVT prophylaxis -PT/rehab Iron deficient anemia -cont iron sup Hypertension -Continue home medications Dyslipidemia/triglyceridemia -On statin/tricor DMII -now stable -cont.basal/bolus. Note pt eats food from home. GERD -PPI Obesity -Weight reduction advised DVT ppx: Aspirin twice daily per orthopedics/SCDs Patient was seen in collaboration with Dr. Angeles Results 24hrs Laboratory Tests Test 02/27/19 17:18 02/27/19 20:55 02/28/19 07:56 02/28/19 11:52 Bedside Glucose 120 136 177 115 Exam/Review of Systems Exam Vitals Vital Signs Date Temp Pulse Resp B/P (MAP) Pulse Ox O2 O2 Flow FiO2 Time Delivery Rate 02/28/19 98.2 64 18 133/60 97 Room Air 07:30 (84) Intake and Output 02/27/19 02/27/19 02/28/19 1515:00 23:00 07:00 IntakeIntake Total 2020 ml 100 ml OutputOutput Total 400 ml BalanceBalance 1620 ml 100 ml Results Results 24hrs Laboratory Tests Test 02/27/19 17:18 02/27/19 20:55 02/28/19 07:56 02/28/19 11:52 Bedside Glucose 120 136 177 115 Medications Medication Current Medications Senna (Senokot) 1 tab HS PO Last administered on 02/27/19 20:56; Admin Dose 1 TAB; Start 02/18/19 at 21:00 Magnesium Hydroxide (Milk Of Mag) 30 ml BID PRN PO CONSTIPATION; Start 02/18/19 at 18:00 Lactulose (Enulose) 20 gm DAILY PRN PO CONSTIPATION; Start 02/18/19 at 18:00 Bisacodyl (Dulcolax Supp) 10 mg DAILY PRN [place] CONSTIPATION Last administered on 02/20/19 05:54; Admin Dose 10 MG; Start 02/18/19 at 18:00 Acetaminophen (Tylenol Tab) 650 mg Q4H PRN PO PAIN; Start 02/18/19 at 18:00 Miscellaneous Information (Pending [facility] Order For Wound Care) This patient brumfield... PRN PRN XX WOUND CARE; Start 02/18/19 at 18:00 Amlodipine Besylate (Norvasc) 10 mg DAILY PO Last administered on 02/28/19 08:34; Admin Dose 10 MG; Start 02/19/19 at 09:00 Atorvastatin Calcium (Lipitor) 40 mg HS PO Last administered on 02/27/19 20:56; Admin Dose 40 MG; Start 02/18/19 at 21:00 Fenofibrate (Tricor) 145 mg DAILY PO Last administered on 02/28/19 08:33; Admin Dose 145 MG; Start 02/19/19 at 09:00 Gabapentin (Neurontin) 300 mg TID PO Last administered on 02/28/19 12:34; Admin Dose 300 MG; Start 02/18/19 at 21:00 Losartan Potassium (Cozaar) 100 mg DAILY PO Last administered on 02/28/19 08:34; Admin Dose 100 MG; Start 02/19/19 at 09:00 Pantoprazole (Protonix Tab) 40 mg DAILY@06 PO Last administered on 02/28/19 06:22; Admin Dose 40 MG; Start 02/19/19 at 06:00 Tramadol HCl (Ultram) 50 mg Q6H PRN PO MODERATE PAIN LEVEL 4-6; Start 02/18/19 at 22:00 Diagnostic Test (Pha) (Accu-Chek) 1 ea 02 XX Last administered on 02/27/19 02:16; Admin Dose 1 EA; Start 02/19/19 at 02:00 Miscellaneous Information 1 ea NOTE XX ; Start 02/18/19 at 22:30 Glucose (Glutose) 15 gm Q15M PRN PO DECREASED GLUCOSE; Start 02/18/19 at 22:30 Glucose (Glutose) 22.5 gm Q15M PRN PO DECREASED GLUCOSE; Start 02/18/19 at 22:30 Dextrose (D50w Syringe) 25 ml Q15M PRN IV DECREASED GLUCOSE; Start 02/18/19 at 22:30 Dextrose (D50w Syringe) 50 ml Q15M PRN IV DECREASED GLUCOSE; Start 02/18/19 at 22:30 Glucagon (Glucagen) 1 mg Q15M PRN IM DECREASED GLUCOSE; Start 02/18/19 at 22:30 Glucose (Glutose) 15 gm Q15M PRN BUCCAL DECREASED GLUCOSE; Start 02/18/19 at 22:30 Acetaminophen/ Hydrocodone Bitart ([place] (5/325)) 1 tab Q4H PRN PO MODERATE PAIN LEVEL 4-6 Last administered on 02/27/19at 21:52; Admin Dose 1 TAB; Start 02/18/19 at 22:30 Hydrochlorothiazide (Hydrochlorothiazide) 12.5 mg DAILY PO Last administered on 02/28/19 08:34; Admin Dose 12.5 MG; Start 02/19/19 at 09:00 Docusate Sodium (Colace) 100 mg BID PO Last administered on 02/28/19 08:34; Admin Dose 100 MG; Start 02/19/19 at 09:00 Magnesium Hydroxide (Milk Of Mag) 30 ml Q12 PRN PO CONSTIPATION; Start 02/18/19 at 22:30 Insulin Aspart (Novolog Insulin Pen) NOVOLOG *MILD* ALGORITHM WITH MEALS BEDTIME SC Last administered on 02/28/19 08:01; Admin Dose 1 UNIT; Start 02/18/19 at 23:00 Aspirin (Halfprin) 81 mg BID PO Last administered on 02/28/19 08:33; Admin Dose 81 MG; Start 02/19/19 at 09:00 Metoclopramide HCl (Reglan) 10 mg DAILY PRN IV NAUSEA; Start 02/19/19 at 00:00 Ferrous Sulfate (Ferrous Sulfate (Ec)) 325 mg BID PO Last administered on 02/28/19at 08:34; Admin Dose 325 MG; Start 02/19/19 at 21:00 Insulin Aspart (Novolog Insulin Pen) 10 unit WITH MEALS SC Last administered on 02/28/19at 12:34; Admin Dose 10 UNIT; Start 02/20/19 at 17:35 Insulin Glargine (Lantus) 30 units DAILY@0800 SC Last administered on 02/28/19at 08:03; Admin Dose 30 UNITS; Start 02/21/19 at 08:00 RENATA KATE NP Feb 28, 2019 13:27
[2019-02-28 14:00] VITALS: BP 115/59; PULSE 74; RESP 18
--- NOTE | 2019-02-28 19:32 | PN ---
DATE: 02/28/2019 SUBJECTIVE: The patient slept well overnight. No significant pain issues, required [place] x1 for rig ht hip pain, voiding effectively and continues to use a walker. OBJECTIVE: VITAL SIGNS: Temperature 98, pulse 74, blood pressure 115/59, O2 saturation 94% on room air. NECK: Supple. CARDIAC: S1, S2. No added sounds or murmurs. CHEST: Diminished air entry both bases. ABDOMEN: Soft, nontender. No guarding or rebound. EXTREMITIES: No cyanosis, clubbing, edema. NEUROLOGIC: Grossly intact. LABORATORY DATA: No new labs. ASSESSMENT AND PLAN: 1. Rehabilitation, severe osteoarthritis status post right total hip arthroplasty. Continues to imp rove from rehabilitation process. 2. Acute pain, currently well controlled. 3. Essential hypertension, stable. 4. Stable diabetes mellitus. Dictated By: PAIGE JOYA MD SV/NTS Conf#: [id number] DID#: [id number] CC: SUGAR URRUTIA MD;*End*
[2019-02-28 20:00] VITALS: BP 112/62; PULSE 70; RESP 18
[2019-02-28] MEDS: SENNA TAB PO SCH (21:02)
[2019-02-28] MEDS: ATORVASTATIN 40 MG TAB PO SCH (21:02)
[2019-03-01 02:00] VITALS: BP 118/60; PULSE 68; RESP 18
[2019-03-01] MEDS: ACCU-CHEK XX SCH ×4 (02:46→20:12)
[2019-03-01] MEDS: PANTOPRAZOLE (EC) 40 MG TAB PO SCH (06:17)
[2019-03-01 07:00] VITALS: BP 136/63; PULSE 68; RESP 18
[2019-03-01] MEDS: INSULIN ASPART [NOVOLOG] 3 ML PEN SC SCH ×7 (08:00→20:09)
[2019-03-01] MEDS: INSULIN GLARGINE [LANTus] (100 UNITS/ML) SYG SC SCH (08:01)
[2019-03-01] MEDS: GABAPENTIN 300 MG CAP PO SCH ×3 (09:06→20:10)
[2019-03-01] MEDS: ASPIRIN (EC) 81 MG TAB PO SCH ×2 (09:06→20:10)
[2019-03-01] MEDS: DOCUSATE SODIUM 100 MG CAP PO SCH ×2 (09:06→20:10)
[2019-03-01] MEDS: FENOFIBRATE 145 MG TAB PO SCH (09:06)
[2019-03-01] MEDS: FERROUS SULFATE (EC) 325 MG TAB PO SCH ×2 (09:06→20:10)
[2019-03-01] MEDS: AMLODIPINE 10 MG TAB PO SCH (09:07)
[2019-03-01] MEDS: LOSARTAN 50 MG TAB PO SCH (09:07)
[2019-03-01] MEDS: HYDROCHLOROTHIAZIDE 12.5 MG CAP PO SCH (09:07)
--- NOTE | 2019-03-01 12:29 | PN ---
Date/Time of Note Date/Time of Note DATE: 03/01/19 TIME: 12:29 Assessment/Plan VTE Prophylaxis Risk score (from Ns)>0 risk: 12 SCD applied (from Ns): No SCD contraindicated: other Pharmacological prophylaxis: other (aspirin twice) Lines/Catheters IV C[facility]ter [facility] (from [facility] Saline Lock Assessment/Plan Hospital Course SUBJECTIVE: No acute episodes. Participating with physical therapy. OBJECTIVE: Vital signs-see below PHYSICAL EXAM: Constitutional: Adequately built,not in acute distress. HEENT: Head atraumatic and normocephalic. Eyes: Extraocular muscles intact. Anicteric sclerae. Pupils equal bilaterally, reactive to light. NECK: Supple without lymph node. CHEST: Clear and good breath sounds equally. No wheezing. No rhonchi. HEART: S1, S2. Regular rate and rhythm. ABDOMEN: Soft/non tender with no rebound tenderness. Bowel sounds were present. EXTREMITIES: left hip dressing c/d/i. Mild swelling around the site-no ecch ymosis/bruising/hematoma. No cyanosis, clubbing or edema. NEUROLOGIC: Alert and oriented x3. No focal deficit. No sensory deficit. PSYCHOSOCIAL: No signs of depression. INTEGUMENTARY: No open wounds. ASSESSMENT AND PLAN: Right hip osteoarthritis, status post total right hip arthroplasty -Follow-up with orthopedic surgeon in 2 weeks -Pain control, DVT prophylaxis -PT/rehab Iron deficient anemia -cont iron sup Hypertension -Continue home medications Dyslipidemia/triglyceridemia -On statin/tricor DMII -now stable -cont.basal/bolus. Note pt eats food from home. GERD -PPI Obesity -Weight reduction advised DVT ppx: Aspirin twice daily per orthopedics/SCDs Patient was seen in collaboration with Dr. Angeles Results 24hrs Laboratory Tests Test 02/28/19 16:23 02/28/19 17:17 02/28/19 21:00 03/01/19 02:01 Bedside Glucose 132 135 247 H 266 H Test 03/01/19 07:38 03/01/19 11:30 Bedside Glucose 210 81 Exam/Review of Systems Exam Vitals Vital Signs Date Temp Pulse Resp B/P (MAP) Pulse Ox O2 O2 Flow FiO2 Time Delivery Rate 03/01/19 97.6 68 18 136/63 96 Room Air 07:00 (87) Intake and Output 02/28/19 02/28/1919 1515:00 23:00 07:00 IntakeIntake Total 1100 ml 1030 ml BalanceBalance 1100 ml 1030 ml Results Results 24hrs Laboratory Tests Test 02/28/19 16:23 02/28/19 17:17 02/28/19 21:00 03/01/19 02:01 Bedside Glucose 132 135 247 H 266 H Test 03/01/19 07:38 03/01/19 11:30 Bedside Glucose 210 81 Medications Medication Current Medications Senna (Senokot) 1 tab HS PO Last administered on 02/28/19 21:02; Admin Dose 1 TAB; Start 02/18/19 at 21:00 Magnesium Hydroxide (Milk Of Mag) 30 ml BID PRN PO CONSTIPATION; Start 02/18/19 at 18:00 Lactulose (Enulose) 20 gm DAILY PRN PO CONSTIPATION; Start 02/18/19 at 18:00 Bisacodyl (Dulcolax Supp) 10 mg DAILY PRN [place] CONSTIPATION Last administered on 02/20/19at 05:54; Admin Dose 10 MG; Start 02/18/19 at 18:00 Acetaminophen (Tylenol Tab) 650 mg Q4H PRN PO PAIN; Start 02/18/19 at 18:00 Miscellaneous Information (Pending [facility] Order For Wound Care) This patient brumfield... PRN PRN XX WOUND CARE; Start 02/18/19 at 18:00 Amlodipine Besylate (Norvasc) 10 mg DAILY PO Last administered on 03/01/19 09:07; Admin Dose 10 MG; Start 02/19/19 at 09:00 Atorvastatin Calcium (Lipitor) 40 mg HS PO Last administered on 02/28/19 21:02; Admin Dose 40 MG; Start 02/18/19 at 21:00 Fenofibrate (Tricor) 145 mg DAILY PO Last administered on 03/01/19 09:06; Admin Dose 145 MG; Start 02/19/19 at 09:00 Gabapentin (Neurontin) 300 mg TID PO Last administered on 03/01/19 12:18; Admin Dose 300 MG; Start 02/18/19 at 21:00 Losartan Potassium (Cozaar) 100 mg DAILY PO Last administered on 03/01/19 09:07; Admin Dose 100 MG; Start 02/19/19 at 09:00 Pantoprazole (Protonix Tab) 40 mg DAILY@06 PO Last administered on 03/01/19 06:17; Admin Dose 40 MG; Start 02/19/19 at 06:00 Tramadol HCl (Ultram) 50 mg Q6H PRN PO MODERATE PAIN LEVEL 4-6; Start 02/18/19 at 22:00 Diagnostic Test (Pha) (Accu-Chek) 1 ea 02 XX Last administered on 03/01/19at 02:46; Admin Dose 1 EA; Start 02/19/19 at 02:00 Miscellaneous Information 1 ea NOTE XX ; Start 02/18/19 at 22:30 Glucose (Glutose) 15 gm Q15M PRN PO DECREASED GLUCOSE; Start 02/18/19 at 22:30 Glucose (Glutose) 22.5 gm Q15M PRN PO DECREASED GLUCOSE; Start 02/18/19 at 22:30 Dextrose (D50w Syringe) 25 ml Q15M PRN IV DECREASED GLUCOSE; Start 02/18/19 at 22:30 Dextrose (D50w Syringe) 50 ml Q15M PRN IV DECREASED GLUCOSE; Start 02/18/19 at 22:30 Glucagon (Glucagen) 1 mg Q15M PRN IM DECREASED GLUCOSE; Start 02/18/19 at 22:30 Glucose (Glutose) 15 gm Q15M PRN BUCCAL DECREASED GLUCOSE; Start 02/18/19 at 22:30 Acetaminophen/ Hydrocodone Bitart ([place] (5/325)) 1 tab Q4H PRN PO MODERATE PAIN LEVEL 4-6 Last administered on 02/27/19at 21:52; Admin Dose 1 TAB; Start 02/18/19 at 22:30 Hydrochlorothiazide (Hydrochlorothiazide) 12.5 mg DAILY PO Last administered on 03/01/19 09:07; Admin Dose 12.5 MG; Start 02/19/19 at 09:00 Docusate Sodium (Colace) 100 mg BID PO Last administered on 03/01/19 09:06; Admin Dose 100 MG; Start 02/19/19 at 09:00 Magnesium Hydroxide (Milk Of Mag) 30 ml Q12 PRN PO CONSTIPATION; Start 02/18/19 at 22:30 Insulin Aspart (Novolog Insulin Pen) NOVOLOG *MILD* ALGORITHM WITH MEALS BEDTIME SC Last administered on 03/01/19 08:00; Admin Dose 2 UNIT; Start 02/18/19 at 23:00 Aspirin (Halfprin) 81 mg BID PO Last administered on 03/01/19 09:06; Admin Dose 81 MG; Start 02/19/19 at 09:00 Metoclopramide HCl (Reglan) 10 mg DAILY PRN IV NAUSEA; Start 02/19/19 at 00:00 Ferrous Sulfate (Ferrous Sulfate (Ec)) 325 mg BID PO Last administered on 03/01/19at 09:06; Admin Dose 325 MG; Start 02/19/19 at 21:00 Insulin Aspart (Novolog Insulin Pen) 10 unit WITH MEALS SC Last administered on 03/01/19 11:35; Admin Dose 10 UNIT; Start 02/20/19 at 17:35 Insulin Glargine (Lantus) 30 units DAILY@0800 SC Last administered on 03/01/19at 08:01; Admin Dose 30 UNITS; Start 02/21/19 at 08:00 Metformin HCl (Glucophage) 1,000 mg BID WITH MEALS PO ; Start 03/01/19 at 17:35 Diagnostic Test (Pha) (Accu-Chek) 1 ea AC MEALS AND BEDTIME XX Last administered on 03/01/19at 11:33; Admin Dose 1 EA; Start 03/01/19 at 11:30 Empaglifozin (Jardiance) 1 mg DAILY PO ; Start 03/02/19 at 09:00 RENATA KATE NP Mar 01, 2019 12:29
[2019-03-01 14:00] VITALS: BP 119/58; PULSE 74; RESP 18
--- NOTE | 2019-03-01 14:42 | PN ---
DATE: 03/01/[address] Castillo. SUBJECTIVE: No significant events overnight. The patient remains stable. PHYSICAL EXAMINATION: VITAL SIGNS: Temperature 97.6, pulse 68, blood pressure 136/63, O2 saturation 96% on room air. NECK: Supple. No JVD or lymphadenopathy. CARDIAC: S1, S2. No added sounds or murmurs. CHEST: Diminished air entry at the bases with few rales. ABDOMEN: Soft, nontender. No guarding or rebound, obese. EXTREMITIES: No cyanosis, clubbing, edema. IMPRESSION: 1. Rehabilitation. The patient is status post right total hip arthroplasty. Continues our rehabili tation program. Gait standby assist 150 feet with a walker. ADLs upper body independent. ADLs lowe r body contact guard assist. 2. Acute pain, currently well controlled. 3. Essential hypertension, stable. 4. Stable diabetes mellitus. Dictated By: PAIGE JOYA MD SV/THOMAS Conf#: [id number] DID#: [id number] CC: SUGAR URRUTIA MD;*EndCC*
[2019-03-01] MEDS: metFORMIN 500 MG TAB PO SCH (17:15)
[2019-03-01 20:00] VITALS: BP 134/61; PULSE 73; RESP 19
[2019-03-01] MEDS: ATORVASTATIN 40 MG TAB PO SCH (20:10)
[2019-03-01] MEDS: SENNA TAB PO SCH (20:10)
[2019-03-01] MEDS: HYDROCODONE/APAP (5/325) TAB PO PRN (21:40)
[2019-03-02 02:00] VITALS: BP 121/60; PULSE 65; RESP 17
[2019-03-02] MEDS: ACCU-CHEK XX SCH ×5 (02:03→21:15)
[2019-03-02] MEDS: PANTOPRAZOLE (EC) 40 MG TAB PO SCH (06:28)
[2019-03-02] MEDS: HYDROCODONE/APAP (5/325) TAB PO PRN ×2 (06:51→12:54)
[2019-03-02 07:00] VITALS: BP 130/81; PULSE 70; RESP 18
[2019-03-02] MEDS: INSULIN ASPART [NOVOLOG] 3 ML PEN SC SCH ×7 (07:56→21:00)
[2019-03-02] MEDS: DOCUSATE SODIUM 100 MG CAP PO SCH ×2 (08:37→21:15)
[2019-03-02] MEDS: HYDROCHLOROTHIAZIDE 12.5 MG CAP PO SCH (08:38)
[2019-03-02] MEDS: GABAPENTIN 300 MG CAP PO SCH ×3 (08:38→21:15)
[2019-03-02] MEDS: AMLODIPINE 10 MG TAB PO SCH (08:38)
[2019-03-02] MEDS: FENOFIBRATE 145 MG TAB PO SCH (08:38)
[2019-03-02] MEDS: FERROUS SULFATE (EC) 325 MG TAB PO SCH ×2 (08:39→21:15)
[2019-03-02] MEDS: EMPAGLIFLOZIN 10 MG TABLET PO SCH (08:39)
[2019-03-02] MEDS: metFORMIN 500 MG TAB PO SCH ×2 (08:39→17:18)
[2019-03-02] MEDS: ASPIRIN (EC) 81 MG TAB PO SCH ×2 (08:39→21:15)
[2019-03-02] MEDS: LOSARTAN 50 MG TAB PO SCH (08:39)
--- NOTE | 2019-03-02 08:47 | PN ---
Date/Time of Note Date/Time of Note DATE: 03/02/19 TIME: 08:45 Subjective AWAKE ALERT, MILD PAIN Objective Vital Signs Date Temp Pulse Resp B/P (MAP) Pulse Ox O2 O2 Flow FiO2 Time Delivery Rate 03/02/19 98.5 65 17 121/60 96 Room Air 02:00 (80) Intake and Output 03/01/19 03/01/19 03/02/19 1515:00 23:00 07:00 IntakeIntake Total 1560 ml 240 ml OutputOutput Total 800 ml BalanceBalance 760 ml 240 ml Exam LUNGS CTA COR RRR [employer] -HOMANS CLOF SV/ MOD I ALL MOBS GAIT WITH FWW Results/Medications Results 24 hrs Laboratory Tests Test 03/01/19 11:30 03/01/19 17:04 03/01/19 20:08 03/02/19 02:00 Bedside Glucose 81 148 222 H 206 Test 03/02/19 07:53 Bedside Glucose 246 H Medications Current Medications Senna (Senokot) 1 tab HS PO Last administered on 03/01/19at 20:10; Admin Dose 1 TAB; Start 02/18/19 at 21:00 Magnesium Hydroxide (Milk Of Mag) 30 ml BID PRN PO CONSTIPATION; Start 02/18/19 at 18:00 Lactulose (Enulose) 20 gm DAILY PRN PO CONSTIPATION; Start 02/18/19 at 18:00 Bisacodyl (Dulcolax Supp) 10 mg DAILY PRN [place] CONSTIPATION Last administered on 02/20/19 05:54; Admin Dose 10 MG; Start 02/18/19 at 18:00 Acetaminophen (Tylenol Tab) 650 mg Q4H PRN PO PAIN; Start 02/18/19 at 18:00 Misc[facility] Information [facility] This patient brumfield... PRN PRN XX WOUND CARE; Start 02/18/19 at 18:00 Amlodipine Besylate (Norvasc) 10 mg DAILY PO Last administered on 03/02/19at 08:38; Admin Dose 10 MG; Start 02/19/19 at 09:00 Atorvastatin Calcium (Lipitor) 40 mg HS PO Last administered on 03/01/19 20:10; Admin Dose 40 MG; Start 02/18/19 at 21:00 Fenofibrate (Tricor) 145 mg DAILY PO Last administered on 03/02/19 08:38; Admin Dose 145 MG; Start 02/19/19 at 09:00 Gabapentin (Neurontin) 300 mg TID PO Last administered on 03/02/19 08:38; Admin Dose 300 MG; Start 02/18/19 at 21:00 Losartan Potassium (Cozaar) 100 mg DAILY PO Last administered on 03/02/19 08:39; Admin Dose 100 MG; Start 02/19/19 at 09:00 Pantoprazole (Protonix Tab) 40 mg DAILY@06 PO Last administered on 03/02/19 06:28; Admin Dose 40 MG; Start 02/19/19 at 06:00 Tramadol HCl (Ultram) 50 mg Q6H PRN PO MODERATE PAIN LEVEL 4-6; Start 02/18/19 at 22:00 Diagnostic Test (Pha) (Accu-Chek) 1 ea 02 XX Last administered on 03/02/19 02:03; Admin Dose 1 EA; Start 02/19/19 at 02:00 Miscellaneous Information 1 ea NOTE XX ; Start 02/18/19 at 22:30 Glucose (Glutose) 15 gm Q15M PRN PO DECREASED GLUCOSE; Start 02/18/19 at 22:30 Glucose (Glutose) 22.5 gm Q15M PRN PO DECREASED GLUCOSE; Start 02/18/19 at 22:30 Dextrose (D50w Syringe) 25 ml Q15M PRN IV DECREASED GLUCOSE; Start 02/18/19 at 22:30 Dextrose (D50w Syringe) 50 ml Q15M PRN IV DECREASED GLUCOSE; Start 02/18/19 at 22:30 Glucagon (Glucagen) 1 mg Q15M PRN IM DECREASED GLUCOSE; Start 02/18/19 at 22:30 Glucose (Glutose) 15 gm Q15M PRN BUCCAL DECREASED GLUCOSE; Start 02/18/19 at 22:30 Acetaminophen/ Hydrocodone Bitart ([place] (5/325)) 1 tab Q4H PRN PO MODERATE PAIN LEVEL 4-6 Last administered on 03/02/19 06:51; Admin Dose 1 TAB; Start 02/18/19 at 22:30 Hydrochlorothiazide (Hydrochlorothiazide) 12.5 mg DAILY PO Last administered on 03/02/19 08:38; Admin Dose 12.5 MG; Start 02/19/19 at 09:00 Docusate Sodium (Colace) 100 mg BID PO Last administered on 03/02/19 08:37; Admin Dose 100 MG; Start 02/19/19 at 09:00 Magnesium Hydroxide (Milk Of Mag) 30 ml Q12 PRN PO CONSTIPATION; Start 02/18/19 at 22:30 Insulin Aspart (Novolog Insulin Pen) NOVOLOG *MILD* ALGORITHM WITH MEALS BEDTIME SC Last administered on 03/02/19 07:56; Admin Dose 3 UNIT; Start 02/18/19 at 23:00 Aspirin (Halfprin) 81 mg BID PO Last administered on 03/02/19 08:39; Admin Dose 81 MG; Start 02/19/19 at 09:00 Metoclopramide HCl (Reglan) 10 mg DAILY PRN IV NAUSEA; Start 02/19/19 at 00:00 Ferrous Sulfate (Ferrous Sulfate (Ec)) 325 mg BID PO Last administered on 03/02/19 08:39; Admin Dose 325 MG; Start 02/19/19 at 21:00 Insulin Aspart (Novolog Insulin Pen) 10 unit WITH MEALS SC Last administered on 03/02/19 07:57; Admin Dose 10 UNIT; Start 02/20/19 at 17:35 Insulin Glargine (Lantus) 30 units DAILY@0800 SC Last administered on 03/01/19 08:01; Admin Dose 30 UNITS; Start 02/21/19 at 08:00 Metformin HCl (Glucophage) 1,000 mg BID WITH MEALS PO Last administered on 03/02/19 08:39; Admin Dose 1,000 MG; Start 03/01/19 at 17:35 Diagnostic Test (Pha) (Accu-Chek) 1 ea AC MEALS AND BEDTIME XX Last admi nistered on 03/02/19 07:45; Admin Dose 1 EA; Start 03/01/19 at 11:30 Empaglifozin (Jardiance) 10 mg DAILY@0800 PO Last administered on 03/02/19 08:39; Admin Dose 10 MG; Start 03/02/19 at 08:00 Assessment/Plan Additional Assessment/Plan 1. Rehabilitation. The patient is status post right total hip arthroplasty. MAKING GREAT GAINS , ANABEL BERMUDEZ 03/04. CONT ASA 2. Acute pain, currently well controlled. 3. Essential hypertension, stable. 4. Stable diabetes mellitus. DON URRUTIA MD Mar 02, 2019 08:46
[2019-03-02] MEDS ORDERED: EMPAGLIFLOZIN 10 MG TABLET PO SCH (09:00)
[2019-03-02] MEDS: INSULIN GLARGINE [LANTus] (100 UNITS/ML) SYG SC SCH (09:14)
[2019-03-02 14:00] VITALS: BP 118/53; PULSE 65; RESP 18
--- NOTE | 2019-03-02 15:22 | PN ---
Date/Time of Note Date/Time of Note DATE: 03/02/19 TIME: 15:21 Assessment/Plan VTE Prophylaxis Risk score (from Ns)>0 risk: 10 SCD applied (from Ns): No SCD contraindicated: other Pharmacological prophylaxis: other (asa bid) Lines/Catheters IV Catheter Type (from [facility]): Sal[place] Lock Assessment/Plan Hospital Course SUBJECTIVE: No acute episodes. OBJECTIVE: Vital signs-see below PHYSICAL EXAM: Constitutional: Adequately built,not in acute distress. HEENT: Head atraumatic and normocephalic. Eyes: Extraocular muscles intact. Anicteric sclerae. Pupils equal bilaterally, reactive to light. NECK: Supple without lymph node. CHEST: Clear and good breath sounds equally. No wheezing. No rhonchi. HEART: S1, S2. Regular rate and rhythm. ABDOMEN: Soft/non tender with no rebound tenderness. Bowel sounds were present. EXTREMITIES: left hip dressing c/d/i. Mild swelling around the site-no ecchymosis/bruising/hematoma. No cyanosis, clubbing or edema. NEUROLOGIC: Alert and oriented x3. No focal deficit. No sensory deficit. PSYCHOSOCIAL: No signs of depression. INTEGUMENTARY: No open wounds. ASSESSMENT AND PLAN: Right hip osteoarthritis, status post total right hip arthroplasty -Follow-up with orthopedic surgeon in 2 weeks -Pain control, DVT prophylaxis -PT/rehab Iron deficient anemia -cont iron sup Hypertension -Continue home medications Dyslipidemia/triglyceridemia -On statin/tricor DMII -Gillian stable-Note pt eats food from home. -cont.basal/bolus. GERD -PPI Obesity -Weight reduction advised DVT ppx: Aspirin twice daily per orthopedics/SCDs Patient was seen in collaboration with Dr. Angeles Results 24hrs Laboratory Tests Test 03/01/19 17:04 03/01/19 20:08 03/02/19 02:00 03/02/19 07:53 Bedside Glucose 148 222 H 206 246 H Test 03/02/19 12:02 Bedside Glucose 123 Exam/Review of Systems Exam Vitals Vital Signs Date Temp Pulse Resp B/P (MAP) Pulse Ox O2 O2 Flow FiO2 Time Delivery Rate 03/02/19 97.3 70 18 130/81 96 Room Air 07:00 (97) Intake and Output 03/01/19 03/01/19 03/02/19 1515:00 23:00 07:00 IntakeIntake Total 1560 ml 240 ml OutputOutput Total 800 ml BalanceBalance 760 ml 240 ml Results Results 24hrs Laboratory Tests Test 03/01/19 17:04 03/01/19 20:08 03/02/19 02:00 03/02/19 07:53 Bedside Glucose 148 222 H 206 246 H Test 03/02/19 12:02 Bedside Glucose 123 Medications Medication Current Medications Senna (Senokot) 1 tab HS PO Last administered on 03/01/19 20:10; Admin Dose 1 TAB; Start 02/18/19 at 21:00 Magnesium Hydroxide (Milk Of Mag) 30 ml BID PRN PO CONSTIPATION; Start 02/18/19 at 18:00 Lactulose (Enulose) 20 gm DAILY PRN PO CONSTIPATION; Start 02/18/19 at 18:00 Bisacodyl (Dulcolax Supp) 10 mg DAILY PRN [place] CONSTIPATION Last administered on 02/20/19 05:54; Admin Dose 10 MG; Start 02/18/19 at 18:00 Acetaminophen (Tylenol Tab) 650 mg Q4H PRN PO PAIN; Start 02/18/19 at 18:00 Miscellaneous Information (Pending [facility] Order For Wound Care) This patient brumfield... PRN PRN XX WOUND CARE; Start 02/18/19 at 18:00 Amlodipine Besylate (Norvasc) 10 mg DAILY PO Last administered on 03/02/19 08:38; Admin Dose 10 MG; Start 02/19/19 at 09:00 Atorvastatin Calcium (Lipitor) 40 mg HS PO Last administered on 03/01/19 20:10; Admin Dose 40 MG; Start 02/18/19 at 21:00 Fenofibrate (Tricor) 145 mg DAILY PO Last administered on 03/02/19 08:38; Admin Dose 145 MG; Start 02/19/19 at 09:00 Gabapentin (Neurontin) 300 mg TID PO Last administered on 03/02/19 12:53; Admin Dose 300 MG; Start 02/18/19 at 21:00 Losartan Potassium (Cozaar) 100 mg DAILY PO Last administered on 03/02/19 08:39; Admin Dose 100 MG; Start 02/19/19 at 09:00 Pantoprazole (Protonix Tab) 40 mg DAILY@06 PO Last administered on 03/02/19 06:28; Admin Dose 40 MG; Start 02/19/19 at 06:00 Tramadol HCl (Ultram) 50 mg Q6H PRN PO MODERATE PAIN LEVEL 4-6; Start 02/18/19 at 22:00 Diagnostic Test (Pha) (Accu-Chek) 1 ea 02 XX Last administered on 03/02/19 02:03; Admin Dose 1 EA; Start 02/19/19 at 02:00 Miscellaneous Information 1 ea NOTE XX ; Start 02/18/19 at 22:30 Glucose (Glutose) 15 gm Q15M PRN PO DECREASED GLUCOSE; Start 02/18/19 at 22:30 Glucose (Glutose) 22.5 gm Q15M PRN PO DECREASED GLUCOSE; Start 02/18/19 at 22:30 Dextrose (D50w Syringe) 25 ml Q15M PRN IV DECREASED GLUCOSE; Start 02/18/19 at 22:30 Dextrose (D50w Syringe) 50 ml Q15M PRN IV DECREASED GLUCOSE; Start 02/18/19 at 22:30 Glucagon (Glucagen) 1 mg Q15M PRN IM DECREASED GLUCOSE; Start 02/18/19 at 22:30 Glucose (Glutose) 15 gm Q15M PRN BUCCAL DECREASED GLUCOSE; Start 02/18/19 at 22:30 Acetaminophen/ Hydrocodone Bitart ([place] (5/325)) 1 tab Q4H PRN PO MODERATE PAIN LEVEL 4-6 Last administered on 03/02/19 12:54; Admin Dose 1 TAB; Start 02/18/19 at 22:30 Hydrochlorothiazide (Hydrochlorothiazide) 12.5 mg DAILY PO Last administered on 03/02/19at 08:38; Admin Dose 12.5 MG; Start 02/19/19 at 09:00 Docusate Sodium (Colace) 100 mg BID PO Last administered on 03/02/19 08:37; Admin Dose 100 MG; Start 02/19/19 at 09:00 Magnesium Hydroxide (Milk Of Mag) 30 ml Q12 PRN PO CONSTIPATION; Start 02/18/19 at 22:30 Insulin Aspart (Novolog Insulin Pen) NOVOLOG *MILD* ALGORITHM WITH MEALS BEDTIME SC Last administered on 03/02/19 07:56; Admin Dose 3 UNIT; Start 02/18/19 at 23:00 Aspirin (Halfprin) 81 mg BID PO Last administered on 03/02/19 08:39; Admin Dose 81 MG; Start 02/19/19 at 09:00 Metoclopramide HCl (Reglan) 10 mg DAILY PRN IV NAUSEA; Start 02/19/19 at 00:00 Ferrous Sulfate (Ferrous Sulfate (Ec)) 325 mg BID PO Last administered on 03/02/19 08:39; Admin Dose 325 MG; Start 02/19/19 at 21:00 Insulin Aspart (Novolog Insulin Pen) 10 unit WITH MEALS SC Last administered on 03/02/19 12:08; Admin Dose 10 UNIT; Start 02/20/19 at 17:35 Insulin Glargine (Lantus) 30 units DAILY@0800 SC Last administered on 03/02/19 09:14; Admin Dose 30 UNITS; Start 02/21/19 at 08:00 Metformin HCl (Glucophage) 1,000 mg BID WITH MEALS PO Last administered on 03/02/19 08:39; Admin Dose 1,000 MG; Start 03/01/19 at 17:35 Diagnostic Test (Pha) (Accu-Chek) 1 ea AC MEALS AND BEDTIME XX Last administered on 03/02/19 12:08; Admin Dose 1 EA; Start 03/01/19 at 11:30 Empaglifozin (Jardiance) 10 mg DAILY@0800 PO Last administered on 03/02/19 08:39; Admin Dose 10 MG; Start 03/02/19 at 08:00 RENATA KATE NP Mar 02, 2019 15:22
[2019-03-02 20:00] VITALS: BP 128/67; PULSE 72; RESP 18
[2019-03-02] MEDS: ATORVASTATIN 40 MG TAB PO SCH (21:15)
[2019-03-02] MEDS: SENNA TAB PO SCH (21:15)
[2019-03-03 02:00] VITALS: BP 125/62; PULSE 67; RESP 18
[2019-03-03] MEDS: ACCU-CHEK XX SCH ×5 (02:00→21:00)
[2019-03-03] MEDS: PANTOPRAZOLE (EC) 40 MG TAB PO SCH (06:45)
[2019-03-03] MEDS: HYDROCODONE/APAP (5/325) TAB PO PRN (06:46)
[2019-03-03 07:30] VITALS: BP 139/63; PULSE 65; RESP 18
[2019-03-03] MEDS: INSULIN ASPART [NOVOLOG] 3 ML PEN SC SCH ×7 (07:35→21:00)
[2019-03-03] MEDS: GABAPENTIN 300 MG CAP PO SCH ×3 (09:00→21:03)
[2019-03-03] MEDS: INSULIN GLARGINE [LANTus] (100 UNITS/ML) SYG SC SCH (09:55)
[2019-03-03] MEDS: metFORMIN 500 MG TAB PO SCH (09:58)
[2019-03-03] MEDS: EMPAGLIFLOZIN 10 MG TABLET PO SCH (10:00)
--- NOTE | 2019-03-03 10:07 | PN ---
Date/Time of Note Date/Time of Note DATE: 03/03/19 TIME: 10:06 Subjective AWAKE ALERRT, MILD R HIP PAIN Objective Vital Signs Date Temp Pulse Resp B/P (MAP) Pulse Ox O2 O2 Flow FiO2 Time Delivery Rate 03/03/19 98.2 65 18 139/63 95 Room Air 07:30 (88) Intake and Output 03/02/19 03/02/19 03/03/19 1515:00 23:00 07:00 IntakeIntake Total 1200 ml 1240 ml OutputOutput Total 900 ml BalanceBalance 300 ml 1240 ml Exam LUNGS CTA COR RRR R HIP INCISION C/D Results/Medications Results 24 hrs Laboratory Tests Test 03/02/19 12:02 03/02/19 17:15 03/02/19 21:13 03/03/19 07:30 Bedside Glucose 123 116 97 129 Test 03/03/19 09:53 Bedside Glucose 135 Medications Current Medications Senna (Senokot) 1 tab HS PO Last administered on 03/02/19 21:15; Admin Dose 1 TAB; Start 02/18/19 at 21:00 Magnesium Hydroxide (Milk Of Mag) 30 ml BID PRN PO CONSTIPATION; Start 02/18/19 at 18:00 Lactulose (Enulose) 20 gm DAILY PRN PO CONSTIPATION; Start 02/18/19 at 18:00 Bisacodyl (Dulcolax Supp) 10 mg DAILY PRN [place] CONSTIPATION Last administered on 02/20/19at 05:54; Admin Dose 10 MG; Start 02/18/19 at 18:00 Acetaminophen (Tylenol Tab) 650 mg Q4H PRN PO PAIN; Start 02/18/19 at 18:00 Miscellaneous Information (Pending [facility] Order For Wound Care) This patient brumfield... PRN PRN XX WOUND CARE; Start 02/18/19 at 18:00 Amlodipine Besylate (Norvasc) 10 mg DAILY PO Last administered on 03/02/19 08:38; Admin Dose 10 MG; Start 02/19/19 at 09:00 Atorvastatin Calcium (Lipitor) 40 mg HS PO Last administered on 03/02/19 21:15; Admin Dose 40 MG; Start 02/18/19 at 21:00 Fenofibrate (Tricor) 145 mg DAILY PO Last administered on 03/02/19 08:38; Admin Dose 145 MG; Start 02/19/19 at 09:00 Gabapentin (Neurontin) 300 mg TID PO Last administered on 03/02/19 21:15; Admin Dose 300 MG; Start 02/18/19 at 21:00 Losartan Potassium (Cozaar) 100 mg DAILY PO Last administered on 03/02/19 08:39; Admin Dose 100 MG; Start 02/19/19 at 09:00 Pantoprazole (Protonix Tab) 40 mg DAILY@06 PO Last administered on 03/03/19at 06:45; Admin Dose 40 MG; Start 02/19/19 at 06:00 Tramadol HCl (Ultram) 50 mg Q6H PRN PO MODERATE PAIN LEVEL 4-6; Start 02/18/19 at 22:00 Diagnostic Test (Pha) (Accu-Chek) 1 ea 02 XX Last administered on 03/02/19 02:03; Admin Dose 1 EA; Start 02/19/19 at 02:00 Miscellaneous Information 1 ea NOTE XX ; Start 02/18/19 at 22:30 Glucose (Glutose) 15 gm Q15M PRN PO DECREASED GLUCOSE; Start 02/18/19 at 22:30 Glucose (Glutose) 22.5 gm Q15M PRN PO DECREASED GLUCOSE; Start 02/18/19 at 22:30 Dextrose (D50w Syringe) 25 ml Q15M PRN IV DECREASED GLUCOSE; Start 02/18/19 at 22:30 Dextrose (D50w Syringe) 50 ml Q15M PRN IV DECREASED GLUCOSE; Start 02/18/19 at 22:30 Glucagon (Glucagen) 1 mg Q15M PRN IM DECREASED GLUCOSE; Start 02/18/19 at 22:30 Glucose (Glutose) 15 gm Q15M PRN BUCCAL DECREASED GLUCOSE; Start 02/18/19 at 22:30 Acetaminophen/ Hydrocodone Bitart ([place] (5/325)) 1 tab Q4H PRN PO MODERATE PAIN LEVEL 4-6 Last administered on 03/03/19at 06:46; Admin Dose 1 TAB; Start 02/18/19 at 22:30 Hydrochlorothiazide (Hydrochlorothiazide) 12.5 mg DAILY PO Last administered on 03/02/19at 08:38; Admin Dose 12.5 MG; Start 02/19/19 at 09:00 Docusate Sodium (Colace) 100 mg BID PO Last administered on 03/02/19 21:15; Admin Dose 100 MG; Start 02/19/19 at 09:00 Magnesium Hydroxide (Milk Of Mag) 30 ml Q12 PRN PO CONSTIPATION; Start 02/18/19 at 22:30 Insulin Aspart (Novolog Insulin Pen) NOVOLOG *MILD* ALGORITHM WITH MEALS BEDTIME SC Last administered on 03/02/19 07:56; Admin Dose 3 UNIT; Start 02/18/19 at 23:00 Aspirin (Halfprin) 81 mg BID PO Last administered on 03/02/19 21:15; Admin Dose 81 MG; Start 02/19/19 at 09:00 Metoclopramide HCl (Reglan) 10 mg DAILY PRN IV NAUSEA; Start 02/19/19 at 00:00 Ferrous Sulfate (Ferrous Sulfate (Ec)) 325 mg BID PO Last administered on 03/02/19 21:15; Admin Dose 325 MG; Start 02/19/19 at 21:00 Insulin Aspart (Novolog Insulin Pen) 10 unit WITH MEALS SC Last administered on 03/02/19 17:18; Admin Dose 10 UNIT; Start 02/20/19 at 17:35 Insulin Glargine (Lantus) 30 units DAILY@0800 SC Last administered on 03/03/19 09:55; Admin Dose 30 UNITS; Start 02/21/19 at 08:00 Metformin HCl (Glucophage) 1,000 mg BID WITH MEALS PO Last administered on 03/02/19 17:18; Admin Dose 1,000 MG; Start 03/01/19 at 17:35 Diagnostic Test (Pha) (Accu-Chek) 1 ea AC MEALS AND BEDTIME XX Last administered on 03/02/19 21:15; Admin Dose 1 EA; Start 03/01/19 at 11:30 Empaglifozin (Jardiance) 10 mg DAILY@0800 PO Last administered on 03/02/19 08:39; Admin Dose 10 MG; Start 03/02/19 at 08:00 Assessment/Plan Additional Assessment/Plan 1. Rehabilitation. The patient is status post right total hip arthroplasty. MAKING GREAT GAINS , ANABEL BERMUDEZ 03/04. CONT ASA 2. Acute pain, currently well controlled. 3. Essential hypertension, stable. 4. Stable diabetes mellitus. DON URRUTIA MD Mar 03, 2019 10:07
--- NOTE | 2019-03-03 10:39 | DS ---
DATE OF ADMISSION: 02/18/2019 DATE OF DISCHARGE: 03/04/2019 DATE OF ADMISSION: 02/18/2019. DATE OF DISCHARGE: 03/04/2019. DISCHARGE DIAGNOSES: 1. Right total hip arthroplasty. 2. Acute pain syndrome. 3. Anemia secondary to acute blood loss. 4. Hypertension. 5. Type 2 diabetes. 6. Dyslipidemia. 7. Gastroesophageal reflux disease. 8. Impairment of mobility and self-care activities. The patient is a 73-year-old female admitted to [facility] with progressive right h ip pain refractory to conservative measures. She had a right anterior total hip arthroplasty perform ed. The patient with significant decline in functional skills, evaluated for acute rehab, deemed an appropriate candidate, meeting all CMS guidelines. She transfers for definitive rehabilitation [facility]. HOSPITAL REHAB TREATMENT: 1. Right total hip arthroplasty, anterior approach. The patient participated with therapeutic and _ ____ rehabilitation program here at [facility] under the care, supervision, directi on, daily oversight by board-certified physical medicine lubricating specialist where she made fan tastic gains in all therapeutic disciplines. The patient had physical therapy, improved to modified independent with all mobility skills including bed mobility, transfers, gait, gait up to 150 feet wit h the use of a front wheel walker. She participated with occupational therapy for strengthening the patient modified independent with all ADL skills including bathing, dressing, grooming, hygiene, toil eting. Rehab nursing played a role patient's rehabilitation program including care of returning for mobility and ADL skills, facilitate out of bed to a chair as much as possible, maintain cardiopulmona ry compliance. She was continent of bowel and bladder at time of discharge. Her incision was well h ealed time of discharge. DISCHARGE INSTRUCTIONS: The patient will be discharged home. Home health services, physical therapy , occupational therapy, rehabilitation nursing. DISCHARGE MEDICATIONS: Please see medication reconciliation sheet. DISCHARGE ACTIVITY: Use of a front-wheel walker. DISCHARGE CONDITION: Good. DISCHARGE PLAN: The patient will follow up with primary care physician. Patient will follow up with orthopedic surgery. Dictated By: DON URRUTIA MD RG/NTS Conf#: [id number] DID#: [id number] CC: PAIGE JOYA MD;*EndCC*
[2019-03-03] MEDS: ASPIRIN (EC) 81 MG TAB PO SCH ×2 (12:32→21:03)
[2019-03-03] MEDS: FERROUS SULFATE (EC) 325 MG TAB PO SCH ×2 (12:33→21:03)
[2019-03-03] MEDS: FENOFIBRATE 145 MG TAB PO SCH (12:33)
[2019-03-03] MEDS: HYDROCHLOROTHIAZIDE 12.5 MG CAP PO SCH (12:33)
[2019-03-03] MEDS: DOCUSATE SODIUM 100 MG CAP PO SCH ×2 (12:34→21:03)
[2019-03-03] MEDS: AMLODIPINE 10 MG TAB PO SCH (12:34)
[2019-03-03] MEDS: LOSARTAN 50 MG TAB PO SCH (12:35)
[2019-03-03 14:00] VITALS: BP 126/54; PULSE 66; RESP 18
--- NOTE | 2019-03-03 15:56 | PN ---
Date/Time of Note Date/Time of Note DATE: 03/03/19 TIME: 15:35 Assessment/Plan VTE Prophylaxis Risk score (from Ns)>0 risk: 10 [place] [facility] [place] contraindicated: other Pharm contraindication: other (asa) Lines/Catheters [facility] Saline Lock Assessment/Plan Hospital Course Assessment/Plan Right hip osteoarthritis, status post total right hip arthroplasty -Follow-up with orthopedic surgeon in 2 weeks -Pain control, DVT prophylaxis -PT/rehab Iron deficient anemia -cont iron sup Hypertension -Continue home medications Dyslipidemia/triglyceridemia - continue On statin/tricor DMII -continue insulin regimen. will adjust as needed GERD -PPI DISPO/PLAN: overall stable. d/c planning Discussed POC with Dr. Daley Result Diagram: 03/03/19 1022 Results 24hrs Laboratory Tests Test 03/02/19 17:15 03/02/19 21:13 03/03/19 07:30 03/03/19 09:53 Bedside Glucose 116 97 129 135 Test 03/03/19 10:22 03/03/19 12:12 Sodium Level 144 Potassium Level 4.2 Chloride Level 109 Carbon Dioxide Level 29 Anion Gap 6 Blood Urea Nitrogen 21 H Creatinine 0.90 Est Glomerular Filtrat Rate mL/min Glucose Level 125 Calcium Level 8.9 Bedside Glucose 107 Subjective 24 Hr Interval Summary Free Text/Dictation was seen today with no s/s of distress. no complaints of pain Exam/Review of Systems Exam Vitals Vital Signs Date Temp Pulse Resp B/P (MAP) Pulse Ox O2 O2 Flow FiO2 Time Delivery Rate 03/03/19 98.2 65 18 139/63 95 Room Air 07:30 (88) Intake and Output 03/02/19 03/02/19 03/03/19 1515:00 23:00 07:00 IntakeIntake Total 1200 ml 1240 ml OutputOutput Total 900 ml BalanceBalance 300 ml 1240 ml Constitutional: alert, oriented Psych: nl mood/affect Head: normocephalic Neck: supple, non-tender Respiratory: clear to auscultation Cardiovascular: regular rate and rhythm Gastrointestinal: soft, non-tender Musculoskeletal: other (dressing right hip cdi ) Neurological: nl mental status, nl speech Results Results 24hrs Laboratory Tests Test 03/02/19 17:15 03/02/19 21:13 03/03/19 07:30 03/03/19 09:53 Bedside Glucose 116 97 129 135 Test 03/03/19 10:22 03/03/19 12:12 Sodium Level 144 Potassium Level 4.2 Chloride Level 109 Carbon Dioxide Level 29 Anion Gap 6 Blood Urea Nitrogen 21 H Creatinine 0.90 Est Glomerular Filtrat Rate mL/min Glucose Level 125 Calcium Level 8.9 Bedside Glucose 107 Medications Medication Current Medications Senna (Senokot) 1 tab HS PO Last administered on 03/02/19 21:15; Admin Dose 1 TAB; Start 02/18/19 at 21:00 Magnesium Hydroxide (Milk Of Mag) 30 ml BID PRN PO CONSTIPATION; Start 02/18/19 at 18:00 Lactulose (Enulose) 20 gm DAILY PRN PO CONSTIPATION; Start 02/18/19 at 18:00 Bisacodyl (Dulcolax Supp) 10 mg DAILY PRN [place] CONSTIPATION Last administered on 02/20/19 05:54; Admin Dose 10 MG; Start 02/18/19 at 18:00 Acetaminophen (Tylenol Tab) 650 mg Q4H PRN PO PAIN; Start 02/18/19 at 18:00 Miscellaneous Information (Pending Santyl Order For Wound Care) This patient brumfield... PRN PRN XX WOUND CARE; Start 02/18/19 at 18:00 Amlodipine Besylate (Norvasc) 10 mg DAILY PO Last administered on 03/03/19 12:34; Admin Dose 10 MG; Start 02/19/19 at 09:00 Atorvastatin Calcium (Lipitor) 40 mg HS PO Last administered on 03/02/19 21:15; Admin Dose 40 MG; Start 02/18/19 at 21:00 Fenofibrate (Tricor) 145 mg DAILY PO Last administered on 03/03/19 12:33; Admin Dose 145 MG; Start 02/19/19 at 09:00 Gabapentin (Neurontin) 300 mg TID PO Last administered on 03/03/19 12:34; Admin Dose 300 MG; Start 02/18/19 at 21:00 Losartan Potassium (Cozaar) 100 mg DAILY PO Last administered on 03/03/19 12:35; Admin Dose 100 MG; Start 02/19/19 at 09:00 Pantoprazole (Protonix Tab) 40 mg DAILY@06 PO Last administered on 7/6/19at 06:45; Admin Dose 40 MG; Start 02/19/19 at 06:00 Tramadol HCl (Ultram) 50 mg Q6H PRN PO MODERATE PAIN LEVEL 4-6; Start 02/18/19 at 22:00 Diagnostic Test (Pha) (Accu-Chek) 1 ea 02 XX Last administered on 03/02/19at 02: 03; Admin Dose 1 EA; Start 02/19/19 at 02:00 Miscellaneous Information 1 ea NOTE XX ; Start 02/18/19 at 22:30 Glucose (Glutose) 15 gm Q15M PRN PO DECREASED GLUCOSE; Start 02/18/19 at 22:30 Glucose (Glutose) 22.5 gm Q15M PRN PO DECREASED GLUCOSE; Start 02/18/19 at 22:30 Dextrose (D50w Syringe) 25 ml Q15M PRN IV DECREASED GLUCOSE; Start 02/18/19 at 22:30 Dextrose (D50w Syringe) 50 ml Q15M PRN IV DECREASED GLUCOSE; Start 02/18/19 at 22:30 Glucagon (Glucagen) 1 mg Q15M PRN IM DECREASED GLUCOSE; Start 02/18/19 at 22:30 Glucose (Glutose) 15 gm Q15M PRN BUCCAL DECREASED GLUCOSE; Start 02/18/19 at 22:30 Acetaminophen/ Hydrocodone Bitart ([place] (5/325)) 1 tab Q4H PRN PO MODERATE PAIN LEVEL 4-6 Last administered on 03/03/19at 06:46; Admin Dose 1 TAB; Start 02/18/19 at 22:30 Hydrochlorothiazide (Hydrochlorothiazide) 12.5 mg DAILY PO Last administered on 03/03/19at 12:33; Admin Dose 12.5 MG; Start 02/19/19 at 09:00 Docusate Sodium (Colace) 100 mg BID PO Last administered on 03/03/19at 12:34; Ad min Dose 100 MG; Start 02/19/19 at 09:00 Magnesium Hydroxide (Milk Of Mag) 30 ml Q12 PRN PO CONSTIPATION; Start 02/18/19 at 22:30 Insulin Aspart (Novolog Insulin Pen) NOVOLOG *MILD* ALGORITHM WITH MEALS BEDTIME SC Last administered on 03/02/19at 07:56; Admin Dose 3 UNIT; Start 02/18/19 at 23:00 Aspirin (Halfprin) 81 mg BID PO Last administered on 03/03/19 12:32; Admin Dose 81 MG; Start 02/19/19 at 09:00 Metoclopramide HCl (Reglan) 10 mg DAILY PRN IV NAUSEA; Start 02/19/19 at 00:00 Ferrous Sulfate (Ferrous Sulfate (Ec)) 325 mg BID PO Last administered on 03/03/19 12:33; Admin Dose 325 MG; Start 02/19/19 at 21:00 Insulin Aspart (Novolog Insulin Pen) 10 unit WITH MEALS SC Last administered on 03/03/19 12:29; Admin Dose 10 UNIT; Start 02/20/19 at 17:35 Insulin Glargine (Lantus) 30 units DAILY@0800 SC Last administered on 03/03/19 09:55; Admin Dose 30 UNITS; Start 02/21/19 at 08:00 Diagnostic Test (Pha) (Accu-Chek) 1 ea AC MEALS AND BEDTIME XX Last administered on 03/02/19 21:15; Admin Dose 1 EA; Start 03/01/19 at 11:30 AYSHA ARMENTA [employer] Mar 03, 2019 15:55
[2019-03-03 20:01] VITALS: BP 118/65; PULSE 70; RESP 18
[2019-03-03] MEDS: ATORVASTATIN 40 MG TAB PO SCH (21:03)
[2019-03-03] MEDS: SENNA TAB PO SCH (21:03)
[2019-03-04 02:00] VITALS: BP 124/61; PULSE 65; RESP 18
[2019-03-04] MEDS: ACCU-CHEK XX SCH ×3 (02:00→11:30)
[2019-03-04] MEDS: PANTOPRAZOLE (EC) 40 MG TAB PO SCH (06:13)
[2019-03-04 07:45] VITALS: BP 125/60; PULSE 65; RESP 18
[2019-03-04] MEDS: INSULIN ASPART [NOVOLOG] 3 ML PEN SC SCH ×4 (08:00→12:07)
[2019-03-04] MEDS: INSULIN GLARGINE [LANTus] (100 UNITS/ML) SYG SC SCH (08:02)
[2019-03-04] MEDS: GABAPENTIN 300 MG CAP PO SCH ×2 (08:18→13:28)
[2019-03-04] MEDS: FERROUS SULFATE (EC) 325 MG TAB PO SCH (08:18)
[2019-03-04] MEDS: DOCUSATE SODIUM 100 MG CAP PO SCH (08:18)
[2019-03-04] MEDS: FENOFIBRATE 145 MG TAB PO SCH (08:19)
[2019-03-04] MEDS: ASPIRIN (EC) 81 MG TAB PO SCH (08:19)
[2019-03-04] MEDS: AMLODIPINE 10 MG TAB PO SCH (08:22)
[2019-03-04] MEDS: HYDROCHLOROTHIAZIDE 12.5 MG CAP PO SCH (08:22)
[2019-03-04] MEDS: LOSARTAN 50 MG TAB PO SCH (08:23)
[2019-03-04] MEDS: HYDROCODONE/APAP (5/325) TAB PO PRN (12:44)
--- NOTE | 2019-03-04 18:56 | PN ---
Date/Time of Note Date/Time of Note LATE ENTRY DATE: 03/04/19 Assessment/Plan VTE Prophylaxis Risk score (from Ns)>0 risk: 10 SCD applied (from Nsg): No SCD contraindicated: other Pharmacological prophylaxis: other (asa) Lines/Catheters IV Catheter Type (from Nrsg): Saline Lock Assessment/Plan Hospital Course Assessment/Plan Right hip osteoarthritis, status post total right hip arthroplasty -Follow-up with orthopedic surgeon in 2 weeks -Pain control, DVT prophylaxis -PT/rehab Iron deficient anemia -cont iron sup Hypertension -Continue home medications Dyslipidemia/triglyceridemia - continue On statin/tricor DMII -continue insulin regimen. will adjust as needed GERD -PPI DISPO/PLAN: overall stable. continue current tx plan for d.c today. Discussed POC with Dr. Daley Result Diagram: 03/03/19 1022 Results 24hrs Laboratory Tests Test 03/03/19 21:02 03/04/19 07:35 03/04/19 11:46 Bedside Glucose 145 159 133 Subjective 24 Hr Interval Summary Free Text/Dictation was seen this morning resting in bed. Exam/Review of Systems Exam Vitals Vital Signs Date Temp Pulse Resp B/P (MAP) Pulse Ox O2 O2 Flow FiO2 Time Delivery Rate 03/04/19 98.1 65 18 125/60 94 Room Air 07:45 (81) Intake and Output 03/03/19 03/03/19 03/04/19 1515:00 23:00 07:00 IntakeIntake Total 1580 ml 1000 ml BalanceBalance 1580 ml 1000 ml Exam Constitutional: alert, oriented Psych: nl mood/affect Head: normocephalic Neck: supple, non-tender Respiratory: clear to auscultation Cardiovascular: regular rate and rhythm Gastrointestinal: soft, non-tender Musculoskeletal: other (dressing right hip cdi ) Neurological: nl mental status, nl speech Results Results 24hrs Laboratory Tests Test 03/03/19 21:02 03/04/19 07:35 03/04/19 11:46 Bedside Glucose 145 159 133 AYSHA ARMENTA NP Mar 04, 2019 18:56
== END 2019-03-04 13:35 | disposition home health service (06) | DRG 561 ==
LOC: VRC 02-18 17:13
PROVIDERS: ADMIT Physical Medicine & Rehabilitation; ATTEND Internal Medicine Pulmonary Disease
PROC: F07Z5ZZ Bed Mobility Treatment (ICD-10-PCS; principal; 2019-02-18)
PROC: F08Z2ZZ Grooming/Personal Hygiene Treatment (ICD-10-PCS; 2019-02-18)
DX: Z47.1 Aftercare following joint replacement surgery (principal); Z96.641 Presence of right artificial hip joint; G89.18 Other acute postprocedural pain; I10 Essential (primary) hypertension; E11.9 Type 2 diabetes mellitus without complications; E78.5 Hyperlipidemia, unspecified; K21.9 Gastro-esophageal reflux disease without esophagitis; D50.9 Iron deficiency anemia, unspecified; E66.9 Obesity, unspecified; Z68.34 Body mass index [BMI] 34.0-34.9, adult; Z79.4 Long term (current) use of insulin; Z79.82 Long term (current) use of aspirin
CPT/HCPCS: 73510; 80048; 80053; 81001; 82962; 83036; 85025; 87081; 87086; 97110; 97112; 97116; 97150; 97163; 97166; 97530; 97535; J1815; J2916